=== PATIENT | male | born 1970 | race Caucasian/White ===

== ENCOUNTER → 2020-07-04 10:52 | Outpatient (BNVA) | payer OTHER, SELFPAY | PROVIDERS: PCP Internal Medicine; Referring Provider Internal Medicine; Visit Provider Orthopaedic Surgery | DX: M75.42 Impingement syndrome of left shoulder (principal); M19.012 Primary osteoarthritis, left shoulder; M75.41 Impingement syndrome of right shoulder; M19.011 Primary osteoarthritis, right shoulder | CPT/HCPCS: 20610; J1040 ==

== ENCOUNTER 2020-10-04 06:17 | Outpatient (REF) | payer OTHER, SELFPAY ==
[2020-10-04 08:11] LABS: Hematocrit 43.3 % (42-52); Mean Corpuscular HGB Conc 32.3 g/dl (31.0-36.0); Mean Corpuscular Hemoglobin 28.2 pg (27.0-33.0); Mean Corpuscular Volume 87.1 fL (80-98); Mean Platelet Volume 9.5 fL (9.4-12.4); Platelet Count 181 X10*3/uL (160-400); Red Blood Count 4.97 X10*6/uL (4.60-5.80); Red Cell Distribution Width 12.8 % (11.0-16.0); White Blood Count 5.1 X10*3/uL (4.8-10.8)
[2020-10-04 08:42] LABS: Estimated Average Glucose 146 mg/dL; Hemoglobin A1c % 6.7 %
[2020-10-04 08:55] LABS: Alanine Aminotransferase 56 U/L (0-40); Alkaline Phosphatase 59 U/L (39-117); Anion Gap 12 (12-20); Aspartate Amino Transferase 34 U/L (5-37); Bilirubin Direct 0.2 mg/dL (0.0-0.5); Bilirubin Total 0.4 mg/dL (0.0-1.0); Blood Urea Nitrogen 13 mg/dL (9-16); Calcium 8.8 mg/dL (8.4-10.2); Carbon Dioxide 29 mmol/L (22-29); Chloride 102 mmol/L (96-108); Cholesterol 121 mg/dL; Estimated Glomerular Filt Rate > 60; Glucose Random 104 mg/dL (60-115); HDL Cholesterol 30 mg/dL; LDL Cholesterol Calculated 61 mg/dl; Potassium 4.7 mmol/l (3.3-5.1); Sodium 138 mmol/L (135-145); Total Protein 7.1 g/dL (6.5-8.0); Triglycerides 151 mg/dL
== END 2020-10-04 06:18 | disposition home or self-care (01) ==
LOC: HO.LAB 06:17
PROVIDERS: Visit Provider Internal Medicine
DX: I10 Essential (primary) hypertension (principal); E11.9 Type 2 diabetes mellitus without complications
CPT/HCPCS: 36415; 80048; 80061; 80076; 83036; 85027

== ENCOUNTER → 2020-10-09 12:31 | Outpatient (BNVA) | payer OTHER, SELFPAY | PROVIDERS: PCP Internal Medicine; Visit Provider Orthopaedic Surgery | DX: Z13.89 Encounter for screening for other disorder (principal) | CPT/HCPCS: 20610; J1040 ==

== ENCOUNTER → 2020-10-23 08:11 | Outpatient (BNVA) | payer OTHER, SELFPAY | PROVIDERS: PCP Internal Medicine; Visit Provider Orthopaedic Surgery | DX: M75.42 Impingement syndrome of left shoulder (principal) | CPT/HCPCS: 20610; J1040 ==

== ENCOUNTER → 2021-02-25 08:07 | Outpatient (BNVA) | payer OTHER, SELFPAY | PROVIDERS: PCP Internal Medicine; Referring Provider Internal Medicine; Visit Provider Physician Assistant ==

== ENCOUNTER 2021-04-02 07:53 | Day surgery (SDC) | payer OTHER, SELFPAY ==
[2021-03-27 11:51] VITALS: BMI 39.0
--- NOTE | 2021-04-01 08:43 | P.CONAN_ITS ---
HPI - Anesthesia Eval Consult details Narrative: 50yo M for Colonoscopy REPLACED BY [facility] Active Problems Active Problems: All Active Problems (Updated 02/25/21 @ 08:53 by Marbella Tee PA-C) Screening for colon cancer (Acute) Knee sprain (Acute) Rotator cuff impingement syndrome of left shoulder (Acute) Rotator cuff impingement syndrome of right shoulder (Acute) Left shoulder pain (Acute) Borderline hyperlipidemia (Acute) Benign hypertension (Acute) Controlled diabetes mellitus type II without complication (Acute) Past Medical History Medical History Benign hypertension Borderline hyperlipidemia Class 2 severe obesity with body mass index (BMI) of 35 to 39.9 with serious comorbidity Controlled diabetes mellitus type II without complication Left shoulder pain Family History Family History Father Bleeding disorder Mother No problems noted. Maternal Aunt Cancer Paternal Uncle Diabetes Surgical History Surgical History History of nephrolithiasis Hx of arthroscopy of knee Social History Social History Household Members Other:: 1 son Alcohol intake: current Alcohol intake frequency: holidays/special occasions only Patient Tobacco Use Status: Never used Tobacco Use of substances other than those prescribed or required for medical reasons: No Are you DNR?: No Advance Directives: No Advance Directives Information Provided: Yes Current occupation: [email or web address] Allergies Allergy/AdvReac Type Severity Reaction Status Date / Time seafood Allergy Unknown Nausea Verified 02/25/21 08:18 Iodinated Contrast Media AdvReac Severe NAUSEA/VOMITING Verified 02/25/21 08:18 [IV CONTRAST] FROM IV DYE Home Medications Medication Instructions Recorded Confirmed Last Taken Type aspirin 81 mg tablet 81 mg PO DAILY 07/10/20 03/27/21 Unknown History lancets 28 gauge #100 ea 10/10/20 02/25/21 Unknown History fexofenadine 60 mg tablet 60 mg PO BID 02/25/21 03/27/21 Unknown History Exam Exam Date and Time: April 01, 2021 0843 Height,Weight and Vital Signs: Height 5 ft 8 in Weight 116.573 kg Assessment and Plan Assessment Anesthesia Assessment: Chart Reviewed
[2021-04-02 08:16] VITALS: BP 130/86; PULSE 63; RESP 16; TEMP 36.2; O2SAT 96; BMI 37.7
[2021-04-02 08:16] LABS: Glucose, Whole Blood 118 mg/dL (60-115)
[2021-04-02] MEDS: Lactated Ringers 1,000 ML 100 ML IVCONT (08:22)
--- NOTE | 2021-04-02 08:57 | P.HPSUR_ITS ---
Pre-Procedural Eval Section A Date of Service: 04/02/21 The patient is an INPATIENT: No The History & Physical has been completed within 30 days and I have reviewed it.: No Section B Chief Complaint: Screening Details of Present Illness: Colon cancer screening Relevant Family History (Specify if Yes): No Relevant Social History: None Present Medications: see Short Stay [facility] assessment Medical History: Significant History (Benign hypertension Borderline hyperlipidemia Class 2 severe obesity with body mass index (BMI) of 35 to 39.9 with serious comorbidity Controlled diabetes mellitus type II without complication Left shoulder pain) History of Previous Operations: Relevant previous surgery/procedure and date(s) (History of nephrolithiasis Hx of arthroscopy of knee) Allergies: Allergies Allergy/AdvReac Type Severity Reaction Status Date / Time seafood Allergy Unknown Nausea Verified 02/25/21 08:18 Iodinated Contrast Media AdvReac Severe NAUSEA/VOMITING Verified 02/25/21 08:18 [IV CONTRAST] FROM IV DYE Review of Systems Sugical H&P ROS: Negative: Constitution, Cardiovascular, Respiratory and Gastrointestinal Exam Surgical H&P Exam: Normal: Heart, Normal: Lungs, Normal: Extremities and Normal: Abdomen Plan Diagnosis/Plan: Unchanged I have reviewed the history and physical and performed a pertinent physical examination on my patient. No changes have occurred unless specified.
--- NOTE | 2021-04-02 09:29 | P.CONAN_ITS ---
[facility] Active Problems Active Problems: All Active Problems (Updated 02/25/21 @ 08:53 by Marbella ellison PA-C) Screening for colon cancer (Acute) Knee sprain (Acute) Rotator cuff impingement syndrome of left shoulder (Acute) Rotator cuff impingement syndrome of right shoulder (Acute) Left shoulder pain (Acute) Borderline hyperlipidemia (Acute) Benign hypertension (Acute) Controlled diabetes mellitus type II without complication (Acute) Past Medical History Medical History Benign hypertension Borderline hyperlipidemia Class 2 severe obesity with body mass index (BMI) of 35 to 39.9 with serious comorbidity Controlled diabetes mellitus type II without complication Left shoulder pain Family History Family History Father Bleeding disorder Mother No problems noted. Maternal Aunt Cancer Paternal Uncle Diabetes Surgical History Surgical History History of nephrolithiasis Hx of arthroscopy of knee Social History Social History Household Members Other:: 1 son Alcohol intake: current Alcohol intake frequency: holidays/special occasions only Patient Tobacco Use Status: Never used Tobacco Use of substances other than those prescribed or required for medical reasons: No Are you DNR?: No Advance Directives: No Advance Directives Information Provided: Yes Current occupation: [employer] Allergies Allergy/AdvReac Type Severity Reaction Status Date / Time seafood Allergy Unknown Nausea Verified 02/25/21 08:18 Iodinated Contrast Media AdvReac Severe NAUSEA/VOMITING Verified 02/25/21 08:18 [IV CONTRAST] FROM IV DYE Active Medications: Current Medications Generic Name Dose Route Start Last Admin Trade Name Freq PRN Reason Stop Dose Admin Lactated Ringer's 1,000 mls @ 100 mls/hr 04/02/21 08:15 04/02/21 08:22 Lr IVCONT 100 mls/hr .Q10H OLEKSANDR Administration Home Medications Medication Instructions Recorded Confirmed Last Taken Type aspirin 81 mg tablet 81 mg PO DAILY 07/10/20 03/27/21 Unknown History lancets 28 gauge #100 ea 10/10/20 02/25/21 Unknown History fexofenadine 60 mg tablet 60 mg PO BID 02/25/21 03/27/21 Unknown History Exam Exam Date and Time: April 02, 2021 0944 Height,Weight and Vital Signs: Height 5 ft 8 in Weight 112.491 kg Last Vital Signs Temp 97.2 F 04/02/21 08:16 Pulse 63 04/02/21 08:16 Resp 16 04/02/21 08:16 BP 130/86 04/02/21 08:16 Pulse Ox 96 04/02/21 08:16 Pertinent Lab Results Pertinent Lab Results: Laboratory Tests 04/02/21 08:13 POC Glucose 118 H Airway Mallampati Class: IV TM Dist: >3cm Neck ROM: Full Heart: RRR Lungs: CTA
[2021-04-02 10:02] VITALS: BP 103/68; PULSE 75; RESP 16; TEMP 36.6; O2SAT 97
[2021-04-02 10:17] VITALS: BP 104/67; PULSE 76; RESP 16; TEMP 36.6; O2SAT 95
--- NOTE | 2021-04-02 17:10 | P.OP_ITS ---
Operative Note Operative Note Date of Service: 04/02/21 Narrative: Pre-op diagnosis: Colon cancer screening Post-op diagnosis: other (Colon polyps, diverticulosis, hemorrhoids) Procedure: COLONOSCOPY TILL CECUM WITH SNARE POLYPECTOMY, SUBMUCOSAL INJECTION HEMOCLIP PLACEMENT Consent: Indications for the procedure and potential complications of bleeding, perforation, reaction to medications and missed diagnosis were discussed with the patient and informed consent was obtained. Instrument: Olympus PCF H 190 L variable stiffness pediatric colonoscope Monitoring: Vital signs and clinical assessment, intermittent blood pressure monitoring, continuous EKG monitoring, Pulse oximetry and Carbon Dioxide monitoring were done throughout the procedure. Colon withdrawl time was 35 minutes. Procedure: The patient was placed in the left lateral decubitis position and pre-procedure medications were administered. After a digital rectal examination of the ano-rectum, the video colonoscope was inserted into the rectum and advanced through the colon to the cecum. The colonoscope was slowly withdrawn in a retrograde panoramic fashion and the colon mucosa was carefully examined including a retroflexed view of the rectum. Findings and interventions are described below. Procedure Difficulty: Without difficulty Findings: Terminal Ileum: Not evaluated Cecum: A 2.5 to 3 cms flat polyp near the appendicular orifice. Polyp was raised with 7 cc of orise solution and removed with a hot snare. Polypectomy site was closed with a hemoclip. Ascending Colon: A 10 mm sessile polyp in the proximal ascending colon, removed with a hot snare Transverse Colon: Normal Descending Colon: Moderate diverticulosis Sigmoid Colon: A 7-8 mm sessile polyp removed with a hot snare. Moderate diverticulosis Rectum: Normal Ano-rectum: Moderate internal hemorrhoids Colon preparation: Good after copious irrigation Impression and Post Procedure Diagnosis: Colonoscopy Findings: Two medium sized and one large sized polyps removed Moderate diverticulosis seen in the left colon Moderate hemorrhoids on retroflexed exam. Plan: Await pathology results Patient has an appointment on 05/13/21 in the GI Clinic with PRASAD Murrell . Repeat Colonoscopy interval based on path results - in 1 years to check polypectomy site in the cecum if cecal polyp is adenomatous and 10 years if polyps are hyperplastic. Above findings were reviewed with the patient and colon polyps and diverticulosis handouts were given in the discharge area Surgeon: Nile Monson MD Anesthesia: MAC (Dr Mccauley) Was an [employer] Specialist used for this Procedure?: Yes [employer] Specialist: Evelin Obrien Estimated blood loss (mL): 0 Pathology: other ( A: CECAL POLYP O-RISE USED B: ASCENDING COLON POLYP C: SIGMOID POLYP) Condition: stable Disposition: PACU
== END 2021-04-02 11:00 | disposition home or self-care (01) ==
PROVIDERS: PCP Internal Medicine; Visit Provider Internal Medicine Gastroenterology
PROC: 0DJD8ZZ Inspection of Lower Intestinal Tract, Via Natural or Artificial Opening Endoscopic (ICD-10-PCS; CPT 45378; principal; 2021-04-02 09:10)
DX: Z12.11 Encounter for screening for malignant neoplasm of colon (principal); D12.0 Benign neoplasm of cecum; D12.2 Benign neoplasm of ascending colon; K63.5 Polyp of colon; K57.30 Diverticulosis of large intestine without perforation or abscess without bleeding; K64.8 Other hemorrhoids; I10 Essential (primary) hypertension; E11.9 Type 2 diabetes mellitus without complications; E66.01 Morbid (severe) obesity due to excess calories; Z68.39 Body mass index [BMI] 39.0-39.9, adult; Z79.84 Long term (current) use of oral hypoglycemic drugs; Z79.82 Long term (current) use of aspirin; Z79.899 Other long term (current) drug therapy; Z87.442 Personal history of urinary calculi; Z91.041 Radiographic dye allergy status; Z87.891 Personal history of nicotine dependence
CPT/HCPCS: 45385; 45381; 82947; 88305

== ENCOUNTER → 2021-05-13 13:12 | Outpatient (BNVA) | payer OTHER, SELFPAY | PROVIDERS: PCP Internal Medicine; Referring Provider Internal Medicine; Visit Provider Physician Assistant ==

== ENCOUNTER 2021-08-28 06:31 | Outpatient (REF) | payer OTHER, SELFPAY ==
[2021-08-28 07:14] LABS: Hematocrit 42.4 % (42.0-52.0); Mean Corpuscular Hemoglobin 28.3 pg (27.0-33.0); Mean Corpuscular Volume 85.8 fL (80.0-98.0); Mean Platelet Volume 9.4 fL (9.4-12.4); Platelet Count 197 X10*3/uL (160-400); Red Blood Count 4.94 X10*6/uL (4.60-5.80); Red Cell Distribution Width 12.2 % (11.0-16.0); White Blood Count 5.6 X10*3/uL (4.8-10.8)
[2021-08-28 07:21] LABS: Appearance Urine CLEAR; Color Urine YELLOW; Glucose Urine UA NEG (NEG); Leukocyte Esterase Urine NEG (NEG); Nitrite Urine NEG (NEG); Specific Gravity - Urine 1.025 (1.005-1.025); Urine Blood NEG (NEG); Urine Ketones NEG (NEG); Urine Protein NEG (NEG-TRACE)
[2021-08-28 07:31] LABS: Alanine Aminotransferase 48 U/L (0-40); Alkaline Phosphatase 66 U/L (39-117); Anion Gap 11 (12-20); Aspartate Amino Transferase 32 U/L (5-37); Bilirubin Direct 0.2 mg/dL (0.0-0.5); Bilirubin Total 0.5 mg/dL (0.0-1.0); Blood Urea Nitrogen 11 mg/dL (9-16); Calcium 9.5 mg/dL (8.4-10.2); Carbon Dioxide 29 mmol/L (22-29); Chloride 104 mmol/L (96-108); Cholesterol 122 mg/dL; Estimated Glomerular Filt Rate > 60; Glucose Random 116 mg/dL (60-115); HDL Cholesterol 28 mg/dL; LDL Cholesterol Calculated 59 mg/dl; Potassium 4.6 mmol/L (3.3-5.1); Sodium 139 mmol/L (135-145); Total Protein 7.2 g/dL (6.5-8.0); Triglycerides 179 mg/dL
[2021-08-28 07:54] LABS: Thyroid Stimulating Hormone 1.37 uIU/mL (0.32-4.0)
[2021-08-28 08:02] LABS: Creatinine Urine 137.41 mg/dL; Microalbum/Creatinine Ratio Ur 4.3 ug/mg cr
== END 2021-08-28 06:32 | disposition home or self-care (01) ==
LOC: HO.LAB 06:31
PROVIDERS: PCP Internal Medicine; Visit Provider Internal Medicine
DX: E11.9 Type 2 diabetes mellitus without complications (principal); I10 Essential (primary) hypertension
CPT/HCPCS: 36415; 80048; 80061; 80076; 81003; 82043; 84443; 85027

== ENCOUNTER 2021-12-31 16:16 | Outpatient (REF) | payer OTHER, SELFPAY ==
--- NOTE | ~2021-12-31 | US_ITS ---
EXAMINATION: US RETROPERITONEAL LIMITED (RENAL ONLY) CLINICAL INFORMATION: Calculus of kidney. COMPARISON: Renal ultrasound 12/13/2019 and 12/23/2018. X-ray abdomen KUB 06/24/2017. CT abdomen and pelvis 05/15/2017. TECHNIQUE: Real-time imaging of the kidneys. FINDINGS: RIGHT KIDNEY: 12.2 x 4.7 x 6.1 cm (SAG x AP x TRV). The kidney is normal in size, contour, and echogenicity. Renal cortical thickness is normal. No focal parenchymal lesions or hydronephrosis. There are multiple echogenic foci present consistent with calculi or vessel interface. The largest representing a renal calculus lies within the lower pole measuring approximately 9 x 3 mm in size. LEFT KIDNEY: 11.4 x 5.3 x 5.0 cm (SAG x AP x TRV). The kidney is normal in size, contour, and echogenicity. Renal cortical thickness is normal. No focal parenchymal lesions or hydronephrosis. Multiple echogenic foci are present either representing nonobstructing calculi or vessel interface. The largest in the upper to middle pole measures 6 x 4 mm in size. There are 4 echogenic foci within the lower pole likely representing nonobstructing calculi measuring 5 mm, 8 mm, 7 mm, and 9 mm in size. Incidentally noted is echogenic liver consistent with fatty infiltration. US/US renal BI IMPRESSION: Bilateral nephrolithiasis without evidence of obstructive uropathy. Fatty infiltration of the liver.
== END 2021-12-31 16:17 | disposition home or self-care (01) ==
LOC: HO.US 16:16
PROVIDERS: PCP Internal Medicine; Visit Provider Urology
DX: N20.0 Calculus of kidney (principal)
CPT/HCPCS: 76775

== ENCOUNTER → 2022-01-31 10:37 | Outpatient (BNVA) | payer OTHER, SELFPAY | PROVIDERS: PCP Internal Medicine | DX: N20.0 Calculus of kidney (principal) ==

== ENCOUNTER 2022-02-05 08:26 | Outpatient (REF) | payer OTHER, SELFPAY ==
[2022-02-05 08:56] LABS: Hematocrit 41.1 % (42.0-52.0); Mean Corpuscular HGB Conc 34.1 g/dl (31.0-36.0); Mean Corpuscular Hemoglobin 28.9 pg (27.0-33.0); Mean Corpuscular Volume 84.9 fL (80.0-98.0); Platelet Count 193 X10*3/uL (160-400); Red Blood Count 4.84 X10*6/uL (4.60-5.80); White Blood Count 5.9 X10*3/uL (4.8-10.8)
[2022-02-05 09:14] LABS: Alanine Aminotransferase 64 U/L (0-40); Alkaline Phosphatase 65 U/L (39-117); Anion Gap 11 (12-20); Aspartate Amino Transferase 37 U/L (5-37); Bilirubin Direct 0.2 mg/dL (0.0-0.5); Bilirubin Total 0.5 mg/dL (0.0-1.0); Blood Urea Nitrogen 12 mg/dL (9-16); Calcium 9.3 mg/dL (8.4-10.2); Carbon Dioxide 26 mmol/L (22-29); Chloride 103 mmol/L (96-108); Cholesterol 135 mg/dL; Estimated Glomerular Filt Rate > 60; Glucose Random 233 mg/dL (60-115); HDL Cholesterol 35 mg/dL; LDL Cholesterol Calculated 71 mg/dl; Potassium 4.2 mmol/L (3.3-5.1); Sodium 136 mmol/L (135-145); Total Protein 7.3 g/dL (6.5-8.0); Triglycerides 148 mg/dL
[2022-02-05 09:35] LABS: Thyroid Stimulating Hormone 1.35 uIU/mL (0.32-4.0)
[2022-02-05 09:56] LABS: Estimated Average Glucose 197 mg/dL; Hemoglobin A1c % 8.5 %
[2022-02-05 10:55] LABS: Appearance Urine CLEAR; Color Urine YELLOW; Glucose Urine UA >=1000 MG/DL (NEG); Leukocyte Esterase Urine NEG (NEG); Nitrite Urine NEG (NEG); Specific Gravity - Urine 1.025 (1.005-1.025); Urine Blood NEG (NEG); Urine Ketones 5 MG/DL (NEG); Urine Protein NEG (NEG-TRACE)
[2022-02-05 11:21] LABS: RBC Urine 0-2 /HPF (0); Squamous Epithelial Cell Urine TRACE /LPF; WBC Urine 0 /HPF (0-4)
[2022-02-05 11:36] LABS: Creatinine Urine 137.96 mg/dL; Microalbum/Creatinine Ratio Ur 6.5 ug/mg cr
== END 2022-02-05 08:27 | disposition home or self-care (01) ==
LOC: HO.LAB 08:26
PROVIDERS: PCP Internal Medicine; Visit Provider Internal Medicine
DX: E11.9 Type 2 diabetes mellitus without complications (principal)
CPT/HCPCS: 36415; 80048; 80061; 80076; 81001; 82043; 83036; 84443; 85027

== ENCOUNTER → 2022-02-06 13:12 | Outpatient (BNVA) | payer OTHER, SELFPAY | PROVIDERS: PCP Internal Medicine; Referring Provider Internal Medicine; Visit Provider Physician Assistant | DX: K63.5 Polyp of colon (principal) ==

== ENCOUNTER 2022-03-24 11:48 | Day surgery (SDC) | payer OTHER, SELFPAY ==
--- NOTE | 2022-03-21 12:14 | P.CONAN_ITS ---
Documented by User: Haven Henriquez NP 03/21/22 12:15 HPI - Anesthesia Eval Consult details Narrative: 51yo Mf or Cystoscopy, Ureteroroscopy, Retro, Laser PMFSH Active Problems Active Problems: All Active Problems (Updated 02/07/22 @ 14:22 by Marbelal Tee PA-C) Sessile colonic polyp (Acute) Hypercholesterolemia (Acute) Essential hypertension (Acute) Class 2 severe obesity with body mass index (BMI) of 35 to 39.9 with serious comorbidity (Acute) Rotator cuff impingement syndrome of right shoulder (Acute) Rotator cuff impingement syndrome of left shoulder (Acute) Annual physical exam (Acute) Renal stones (Acute) Controlled diabetes mellitus type II without complication (Acute) Past Medical History Medical History Arthrosis of both acromioclavicular joints Class 2 severe obesity with body mass index (BMI) of 35 to 39.9 with serious comorbidity Controlled diabetes mellitus type II without complication Diverticulosis large intestine w/o perforation or abscess w/o bleeding Essential hypertension Hypercholesterolemia Left shoulder pain Renal stones Rotator cuff impingement syndrome of left shoulder Rotator cuff impingement syndrome of right shoulder Rotator cuff impingement syndrome of right shoulder Sessile colonic polyp Family History Family History Father Bleeding disorder Mother No problems noted. Maternal Aunt Cancer Paternal Uncle Diabetes Mother No problems noted. Father No problems noted. Surgical History Surgical History History of arthroscopy of both knees History of nephrolithiasis Hx of arthroscopy of knee Hx of colonoscopy Social History Social History Household Members Other:: 1 son Housing: House Alcohol intake: current Alcohol intake frequency: does not drink Patient Tobacco Use Status: Never used Tobacco e-Cigarette/Vaping Use: Never Used Second Hand Smoke Exposure: No Use of substances other than those prescribed or required for medical reasons: No Are you DNR?: No Advance Directives: No Advance Directives Information Provided: Yes Advance Directives on File: No service: No Current occupational status: employed 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 Cognitive needs: No Hearing needs: No Vision needs: Yes (Glasses) Meds Allergies Allergy/AdvReac Type Severity Reaction Status Date / Time seafood Allergy Unknown Nausea Verified 03/18/22 13:02 Iodinated Contrast Media AdvReac Severe NAUSEA/VOMITING Verified 03/18/22 13:02 [IV CONTRAST] FROM IV DYE seasonal Allergy Unknown unknown Uncoded 02/05/22 08:01 Home Medications Medication Instructions Recorded Confirmed Last Taken Type aspirin 81 mg tablet 81 mg PO DAILY 07/10/20 05/13/21 Unknown History lancets 28 gauge #100 ea 10/10/20 05/13/21 Unknown History fexofenadine 60 mg tablet (Thuy 60 mg PO BID 02/25/21 05/13/21 Unknown History Allergy) pyridoxine (vitamin B6) 50 mg 50 mg PO DAILY 03/18/22 Unknown History tablet Exam Exam Date and Time: March 21, 2022 1214 Pertinent Lab Results Pertinent Lab Results: Laboratory Tests 02/05/22 02/05/22 08:43 08:43 WBC 5.9 Hgb 14.0 Hct 41.1 L Plt Count 193 Sodium 136 Potassium 4.2 Chloride 103 Carbon Dioxide 26 BUN 12 Creatinine 1.16 Assessment and Plan Assessment Anesthesia Assessment: Chart Reviewed Documented by User: Tea Sanchez MD 03/24/22 12:36 [facility] Past Medical History Medical History Arthrosis of both acromioclavicular joints Class 2 severe obesity with body mass index (BMI) of 35 to 39.9 with serious comorbidity Controlled diabetes mellitus type II without complication Diverticulosis large intestine w/o perforation or abscess w/o bleeding Essential hypertension Hypercholesterolemia Left shoulder pain Renal stones Rotator cuff impingement syndrome of left shoulder Rotator cuff impingement syndrome of right shoulder Rotator cuff impingement syndrome of right shoulder Sessile colonic polyp Functional capacity: independent ambulation Family History Family History Father Bleeding disorder Mother No problems noted. Maternal Aunt Cancer Paternal Uncle Diabetes Mother No problems noted. Father No problems noted. Family history of problems with anesthesia: No Surgical History Surgical History History of arthroscopy of both knees History of nephrolithiasis Hx of arthroscopy of knee Hx of colonoscopy History of Problems with Anesthesia: No Social History Social History Household Members Other:: 1 son Housing: House Alcohol intake: current Alcohol intake frequency: does not drink Patient Tobacco Use Status: Never used Tobacco e-Cigarette/Vaping Use: Never Used Second Hand Smoke Exposure: No Use of substances other than those prescribed or required for medical reasons: No Are you DNR?: No Advance Directives: No Advance Directives Information Provided: Yes Advance Directives on File: No service: No Current occupational status: employed 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 Cognitive needs: No Hearing needs: No Vision needs: Yes (Glasses) Meds Allergies Allergy/AdvReac Type Severity Reaction Status Date / Time seafood Allergy Unknown Nausea Verified 03/18/22 13:02 Iodinated Contrast Media AdvReac Severe NAUSEA/VOMITING Verified 03/18/22 13:02 [IV CONTRAST] FROM IV DYE seasonal Allergy Unknown unknown Uncoded 02/05/22 08:01 Home Medications Medication Instructions Recorded Confirmed Last Taken Type aspirin 81 mg tablet 81 mg PO DAILY 07/10/20 05/13/21 Unknown History lancets 28 gauge #100 ea 10/10/20 05/13/21 Unknown History fexofenadine 60 mg tablet (Thuy 60 mg PO BID 02/25/21 05/13/21 Unknown History Allergy) pyridoxine (vitamin B6) 50 mg 50 mg PO DAILY 03/18/22 Unknown History tablet Exam Airway Mallampati Class: IV TM Dist: >3cm Neck ROM: Full Heart: RRR Lungs: CTA Assessment and Plan Final Anesthetic Review Family History of Problems with Anesthesia: No History of Problems with Anesthesia: No Final Preanesthetic Review: No Changes in Pt Med Stat, Meds/Allgs Chart Reviewed, Consent Obtained/Reviewed and Anes Risks/Benef Reviewed Patient Risk: Intermediate Procedure Risk: Low Anesthetic Plan Anesthetic Plan: GA Disposition: Standard PACU
--- NOTE | ~2022-03-24 | FL_ITS ---
EXAMINATION: XR FLUOROSCOPY WITH IMAGES CLINICAL INFORMATION: Left-sided cystoscopy. COMPARISON: None. TECHNIQUE: Fluoroscopy performed by Dr. Desmond Harkins. Fluoroscopy time: 15.77) Dose: 9.57 mGy Images: 1 FINDINGS: There is a single image obtained overlying the left kidney with proximal end of stent in the left kidney pelvis. The distal end is not in the [id number]. FL/FL guidance in OR IMPRESSION: Fluoroscopy was provided to referring DrDuy during retrograde ureterogram and cystogram.
[2022-03-24 12:05] VITALS: BMI 38.2
[2022-03-24 12:11] VITALS: BP 134/80; PULSE 68; RESP 16; TEMP 36.3; O2SAT 95
[2022-03-24] MEDS: Acetaminophen 325 MG TABLET 650 MG PO (12:12)
[2022-03-24 12:18] LABS: Glucose, Whole Blood 132 mg/dL (60-115)
--- NOTE | 2022-03-24 12:24 | MHC.SHP ---
Pre-Procedural Eval Section A Date of Service: 03/24/22 The patient is an INPATIENT: Yes Changes since office visit: No Cold of Flu in the past 2 weeks, No New Medical Problems, No Changes in Medication and No Patient answered all questions The History & Physical has been completed within 30 days and I have reviewed it.: Yes Section B Chief Complaint: kidney stone Details of Present Illness: left side renal stone Relevant Family History (Specify if Yes): No Relevant Social History: Tobacco Use Present Medications: see Short Stay Collaborative assessment Medical History: Significant History History of Previous Operations: Relevant previous surgery/procedure and date(s) Allergies: Allergies Allergy/AdvReac Type Severity Reaction Status Date / Time seafood Allergy Unknown Nausea Verified 03/18/22 13:02 Iodinated Contrast Media AdvReac Severe NAUSEA/VOMITING Verified 03/18/22 13:02 [IV CONTRAST] FROM IV DYE seasonal Allergy Unknown unknown Uncoded 02/05/22 08:01 Review of Systems Sugical H&P ROS: Negative: Constitution, Cardiovascular, Respiratory, Neurological, Psychiatric, Hem-Onc, Allergic/Immunologic, Gastrointestinal, Genitourinary, Musculoskeletal, Integumentary, Endocrine and Eyes/Ears/Nose/Throat Exam Surgical H&P Exam: Normal: HEENT, Normal: Heart, Normal: Lungs, Normal: Extremities, Normal: Abdomen, Normal: Skin and Normal: Neurological Plan Diagnosis/Plan: Unchanged ( cystoscopy, left retrograde, left ureteroscopy with laser lithotripsy and stent placement) I have reviewed the history and physical and performed a pertinent physical examination on my patient. No changes have occurred unless specified.
--- NOTE | 2022-03-24 13:19 | P.OP_ITS ---
Operative Note Operative Note Date of Service: 03/24/22 Narrative: PreOperative Diagnosis: left-sided renal stones Post Operative Diagnosis: left submucosal renal calcifications Procedure: - cystoscopy, left retrograde - left dilatation of ureteric orifice under fluoroscopy - left ureteroscopy - left stent placement Surgeon: Dr Torin Logan Anesthesia: General Indications for procedure: recurrent stones on imaging. Multiple prior ESWL. Discomfort. Procedure: After informed consent was verified patient was brought to the operating placed in supine position. Anesthesia was administered per protocol. Patient was placed in modified dorsal lithotomy position and prepped and draped in a sterile fashion. Safety pause time-out and side of surgery confirmed. Antibiotics confirmed. 22 Belarusian cystoscope was inserted per urethra. Bladder was normal in its entirety. Both ureteric orifices were in normal position. The Left ureteric orifice was cannulated and a retrograde examination was performed. no clear filling defects seen . A Sensor guidewire was placed up to the level of the renal pelvis under fluoroscopy. The rigid cystoscope was removed and the inner cannula of ureteric access sheath was used under fluoroscopy to dilate the ureteric orifice. The ureteric access sheath was placed and the inner cannula with access wire removed. The digital flexible ureteral scope was placed. the flexible scope was placed into the renal pelvis. The renal pelvis was examined its entirety. All cases examined. There were multiple calices with submucosal stones. Two small stones floating that were knocked from the calyces. Due to the amount of submucosal stone and very little of it was penetrating through service decision was made not to proceed with laser all of the submucosal stones. He will need follow-up 24 hour urine and medical management. A 7 Belarusian by Twenty-six cm double-J stent was placed into the renal pelvis and bladder under a combination of fluoroscopy and direct visualization. The bladder was emptied. The patient tolerated the procedure well and was extu bated in the operating room, and transferred in stable condition to the recovery area. Pathology: none Drains: 7 Belarusian by 26 cm double-J stent
[2022-03-24 13:30] VITALS: BP 126/79; PULSE 82; RESP 16; TEMP 36.7; O2SAT 99
[2022-03-24 13:35] VITALS: BP 137/89; PULSE 79; RESP 16; O2SAT 95
[2022-03-24 13:40] VITALS: BP 132/86; PULSE 78; RESP 16; O2SAT 95
[2022-03-24 13:45] VITALS: BP 136/91; PULSE 64; RESP 16; O2SAT 95
[2022-03-24] MEDS: Phenazopyridine HCL 100 MG TABLET PO (13:56)
--- NOTE | 2022-03-24 13:59 | HO.POSTANES ---
Post Anesthesia Evaluation Post Anesthesia Evaluation Vital Signs: Vital Signs Temp Pulse Resp BP Pulse Ox O2 Del Method O2 Flow Rate 03/24/22 13:35 79 16 137/89 95 Room Air 03/24/22 13:30 98.1 F 82 16 126/79 99 Simple Mask 2 03/24/22 12:11 97.3 F 68 16 134/80 95 Room Air Anesthesia: General LMA Mental Status: Awake Pain Control: Satisfactory Nausea/Vomiting: None Hydration: Adequate
[2022-03-24 14:00] VITALS: BP 136/88; PULSE 68; RESP 16; O2SAT 96
== END 2022-03-24 14:41 | disposition home or self-care (01) ==
PROVIDERS: PCP Internal Medicine; Visit Provider Urology
PROC: (CPT 52332; principal; 2022-03-24 13:20)
DX: N20.0 Calculus of kidney (principal); N28.89 Other specified disorders of kidney and ureter; Z87.442 Personal history of urinary calculi; E11.9 Type 2 diabetes mellitus without complications; I10 Essential (primary) hypertension; E78.00 Pure hypercholesterolemia, unspecified; K57.30 Diverticulosis of large intestine without perforation or abscess without bleeding; E66.01 Morbid (severe) obesity due to excess calories; Z87.19 Personal history of other diseases of the digestive system; Z91.041 Radiographic dye allergy status
CPT/HCPCS: 52332; 82947; C1758; C1769; C1894; C2617; J1100; J1885; J1956; J2250; J2405; J3010; Q9967

== ENCOUNTER → 2022-04-10 12:46 | Outpatient (BNVA) | payer OTHER, SELFPAY | PROVIDERS: PCP Internal Medicine; Visit Provider Urology | DX: R82.994 Hypercalciuria (principal); N20.0 Calculus of kidney | CPT/HCPCS: 52310 ==

== ENCOUNTER 2022-05-29 13:58 | Outpatient (REF) | payer OTHER, SELFPAY ==
--- NOTE | ~2022-05-29 | US_ITS ---
EXAMINATION: US RETROPERITONEAL LIMITED (RENAL ONLY) CLINICAL INFORMATION: Hypercalciuria. COMPARISON: Renal ultrasound 12/31/2021 and 12/13/2019. X-ray KUB 06/24/2017 and 06/17/2017. CT abdomen and pelvis 05/15/2017. TECHNIQUE: Real-time imaging of the kidneys. FINDINGS: RIGHT KIDNEY: 13.2 x 5.6 x 5.0 cm (SAG x AP x TRV). The kidney is normal in size, contour, and echogenicity. Renal cortical thickness is normal. No focal parenchymal lesions or hydronephrosis. Within the right renal lower pole is a 5 mm nonobstructive calculus. LEFT KIDNEY: 12.6 x 6.0 x 5.0 cm (SAG x AP x TRV). The kidney is normal in size, contour, and echogenicity. Renal cortical thickness is normal. No focal parenchymal lesions or hydronephrosis. Within the left renal lower pole is a 7 mm nonobstructive calculus. US/US renal BI IMPRESSION: Bilateral nephrolithiasis measuring up 7 mm without hydronephrosis.
== END 2022-05-29 13:59 | disposition home or self-care (01) ==
LOC: HO.US 13:58
PROVIDERS: Visit Provider Urology
DX: R82.994 Hypercalciuria (principal)
CPT/HCPCS: 76775

== ENCOUNTER 2022-06-16 08:53 | Day surgery (SDC) | payer OTHER, SELFPAY ==
[2022-06-11 09:49] VITALS: BMI 38.6
--- NOTE | 2022-06-13 12:41 | HO.ANESPROP2 ---
Documented by User: Haven Henriquez NP 06/13/22 12:42 HPI - Anesthesia Eval Consult details Narrative: 51yo M for Colonoscopy s/p cysto etc 03/2022 with GA-LMA 5 PMFSH Active Problems Active Problems: All Active Problems (Updated 06/11/22 @ 09:44 by Alondra Maher RN) Annual physical exam (Acute) Hypercalciuria (Acute) Sessile colonic polyp (Acute) Hypercholesterolemia (Acute) Essential hypertension (Acute) Class 2 severe obesity with body mass index (BMI) of 35 to 39.9 with serious comorbidity (Acute) Rotator cuff impingement syndrome of right shoulder (Acute) Rotator cuff impingement syndrome of left shoulder (Acute) Renal stones (Acute) Controlled diabetes mellitus type II without complication (Acute) Past Medical History Medical History (Updated 06/11/22 @ 09:44 by Alondra Maher RN) Arthrosis of both acromioclavicular joints Class 2 severe obesity with body mass index (BMI) of 35 to 39.9 with serious comorbidity Controlled diabetes mellitus type II without complication Diverticulosis large intestine w/o perforation or abscess w/o bleeding Essential hypertension Hypercholesterolemia Left shoulder pain Renal stones Rotator cuff impingement syndrome of left shoulder Rotator cuff impingement syndrome of right shoulder Sessile colonic polyp Family History Family History Father Bleeding disorder Mother No problems noted. Maternal Aunt Cancer Paternal Uncle Diabetes Mother No problems noted. Father No problems noted. Family history of problems with anesthesia: No Surgical History Surgical History (Updated 06/11/22 @ 09:48 by Alondra Maher RN) Hx of arthroscopy of knee Hx of colonoscopy Hx of cystoscopy Hx of lithotripsy History of Problems with Anesthesia: No Social History Social History Household Members Other:: 1 son Housing: House Alcohol intake: current Alcohol intake frequency: does not drink Patient Tobacco Use Status: Current someday Tobacco user Tobacco use type: Cigar e-Cigarette/Vaping Use: Never Used Second Hand Smoke Exposure: No Use of substances other than those prescribed or required for medical reasons: No Are you DNR?: No Advance Directives: No Advance Directives Information Provided: Yes service: No Current occupational status: employed 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 Cognitive needs: No Hearing needs: No Vision needs: Yes (Glasses) Meds Allergies Allergy/AdvReac Type Severity Reaction Status Date / Time seafood Allergy Intermediate Nausea Verified 06/16/22 09:05 Iodinated Contrast Media AdvReac Severe NAUSEA/VOMITING Verified 06/16/22 09:05 [IV CONTRAST] FROM IV DYE seasonal Allergy Unknown unknown Uncoded 02/05/22 08:01 Home Medications Medication Instructions Recorded Confirmed Last Taken Type aspirin 81 mg tablet 81 mg PO DAILY 07/10/20 06/11/22 Unknown History lancets 28 gauge #100 ea 10/10/20 05/13/21 Unknown History fexofenadine 60 mg tablet (Thuy 60 mg PO BID 02/25/21 06/11/22 Unknown History Allergy) pyridoxine (vitamin B6) 50 mg 50 mg PO DAILY 03/18/22 Unknown History tablet Exam Exam Date and Time: June 13, 2022 1241 Height,Weight and Vital Signs: Height 5 ft 8 in Weight 115.212 kg Pertinent Lab Results Pertinent Lab Results: Laboratory Tests 02/05/22 02/05/22 08:43 08:43 WBC 5.9 Hgb 14.0 Hct 41.1 L Plt Count 193 Sodium 136 Potassium 4.2 Chloride 103 Carbon Dioxide 26 BUN 12 Creatinine 1.16 Assessment and Plan Assessment Anesthesia Assessment: Chart Reviewed Final Anesthetic Review Family History of Problems with Anesthesia: No History of Problems with Anesthesia: No Documented by User: Sola Fernandez MD 06/16/22 09:22 REPLACED BY [facility] Past Medical History Medical History (Updated 06/11/22 @ 09:44 by Alondra Maher RN) Arthrosis of both acromioclavicular joints Class 2 severe obesity with body mass index (BMI) of 35 to 39.9 with serious comorbidity Controlled diabetes mellitus type II without complication Diverticulosis large intestine w/o perforation or abscess w/o bleeding Essential hypertension Hypercholesterolemia Left shoulder pain Renal stones Rotator cuff impingement syndrome of left shoulder Rotator cuff impingement syndrome of right shoulder Sessile colonic polyp Family History Family History Father Bleeding disorder Mother No problems noted. Maternal Aunt Cancer Paternal Uncle Diabetes Mother No problems noted. Father No problems noted. Surgical History Surgical History (Updated 06/11/22 @ 09:48 by Alondra Maher RN) Hx of arthroscopy of knee Hx of colonoscopy Hx of cystoscopy Hx of lithotripsy Social History Social History Household Members Other:: 1 son Housing: House Alcohol intake: current Alcohol intake frequency: does not drink Patient Tobacco Use Status: Current someday Tobacco user Tobacco use type: Cigar e-Cigarette/Vaping Use: Never Used Second Hand Smoke Exposure: No Use of substances other than those prescribed or required for medical reasons: No Are you DNR?: No Advance Directives: No Advance Directives Information Provided: Yes service: No Current occupational status: employed 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 Cognitive needs: No Hearing needs: No Vision needs: Yes (Glasses) Meds Allergies Allergy/AdvReac Type Severity Reaction Status Date / Time seafood Allergy Intermediate Nausea Verified 06/16/22 09:05 Iodinated Contrast Media AdvReac Severe NAUSEA/VOMITING Verified 06/16/22 09:05 [IV CONTRAST] FROM IV DYE seasonal Allergy Unknown unknown Uncoded 02/05/22 08:01 Home Medications Medication Instructions Recorded Confirmed Last Taken Type aspirin 81 mg tablet 81 mg PO DAILY 07/10/20 06/11/22 Unknown History lancets 28 gauge #100 ea 10/10/20 05/13/21 Unknown History fexofenadine 60 mg tablet (Thuy 60 mg PO BID 02/25/21 06/11/22 Unknown History Allergy) pyridoxine (vitamin B6) 50 mg 50 mg PO DAILY 03/18/22 Unknown History tablet Exam Airway Mallampati Class: II TM Dist: >3cm Neck ROM: Full Heart: rrr Lungs: cta Assessment and Plan Assessment Anesthesia Assessment: Anesthesia Plan Discussed Final Anesthetic Review NPO: Yes ASA Class: III Final Preanesthetic Review: No Changes in Pt Med Stat, Meds/Allgs Chart Reviewed and Consent Obtained/Reviewed Patient Risk: Intermediate Procedure Risk: Intermediate Anesthetic Plan Anesthetic Plan: MAC: Disposition: Standard PACU
--- NOTE | 2022-06-16 09:04 | MHC.SHP ---
Pre-Procedural Eval Section A Date of Service: 06/16/22 The patient is an INPATIENT: No The History & Physical has been completed within 30 days and I have reviewed it.: No Section B Chief Complaint: Colon cancer screening, history of colon polyps Relevant Family History (Specify if Yes): No Relevant Social History: None Present Medications: see Short Stay Collaborative assessment Medical History: Significant History (Arthrosis of both acromioclavicular joints Class 2 severe obesity with body mass index (BMI) of 35 to 39.9 with serious comorbidity Controlled diabetes mellitus type II without complication Diverticulosis large intestine w/o perforation or abscess w/o bleeding Essential hypertension Hypercholesterol) History of Previous Operations: Relevant previous surgery/procedure and date(s) (History of arthroscopy of both knees History of nephrolithiasis Hx of arthroscopy of knee Hx of colonoscopy) Allergies: Allergies Allergy/AdvReac Type Severity Reaction Status Date / Time seafood Allergy Intermediate Nausea Verified 06/11/22 09:45 Iodinated Contrast Media AdvReac Severe NAUSEA/VOMITING Verified 04/10/22 13:08 [IV CONTRAST] FROM IV DYE seasonal Allergy Unknown unknown Uncoded 02/05/22 08:01 Review of Systems Sugical H&P ROS: Negative: Constitution, Cardiovascular, Respiratory and Gastrointestinal Exam Surgical H&P Exam: Normal: Heart, Normal: Lungs, Normal: Extremities and Normal: Abdomen Plan Diagnosis/Plan: Unchanged I have reviewed the history and physical and performed a pertinent physical examination on my patient. No changes have occurred unless specified.
--- NOTE | 2022-06-16 09:06 | P.BOP_ITS ---
Brief Operative Note Date of Service: 06/16/22 Pre-op diagnosis: Colon cancer screening, history of colon polyps Post-op diagnosis: other (Colon polyps, diverticulosis, hemorrhoids) Procedure: COLONOSCOPY TILL CECUM WITH BIOPSIES AND SNARE POLYPECTOMY Consent: Indications for the procedure and potential complications of bleeding, perforation, reaction to medications and missed diagnosis were discussed with the patient and informed consent was obtained. Instrument: Olympus PCF H 190 L variable stiffness pediatric colonoscope Monitoring: Vital signs and clinical assessment, intermittent blood pressure monitoring, continuous EKG monitoring, Pulse oximetry and Carbon Dioxide monitoring were done throughout the procedure. Colon withdrawl time was 25 minutes. Procedure: The patient was placed in the left lateral decubitis position and pre-procedure medications were administered. After a digital rectal examination of the ano-rectum, the video colonoscope was inserted into the rectum and advanced through the colon to the cecum. The colonoscope was slowly withdrawn in a retrograde panoramic fashion and the colon mucosa was carefully examined including a retroflexed view of the rectum. Findings and interventions are described below. Procedure Difficulty: Without difficulty Findings: Terminal Ileum: Not evaluated Cecum: Two 3-4 mm sessile polyps removed with a cold bx and a cold snare (one polyp located at the site of past polypectomy). Random biopsies were obtained around the site of past polypectomy. Ascending Colon: Normal Transverse Colon: Normal Descending Colon: Moderate diverticulosis Sigmoid Colon: Moderate diverticulosis Rectum: Normal Ano-rectum: Moderate internal hemorrhoids Colon preparation: Good after copious irrigation Impression and Post Procedure Diagnosis: Colonoscopy Findings: Two small polyps removed Random biopsies were obtained around the site of past polypectomy in the cecum Moderate diverticulosis seen in the left colon Moderate hemorrhoids on retroflexed exam. Plan: Await pathology results Patient has an appointment on 06/30/22 in the GI Clinic with PRASAD Murrell. Repeat Colonoscopy interval based on path results - in 3 years if polyps are adenomatous. Above findings were reviewed with the patient and colon polyps and diverticulosis handouts were given in the discharge area Surgeon: Nile Monson MD Anesthesia: MAC Was an Industrial Electrical Engineer used for this Procedure?: Yes Industrial Electrical Engineer: Allen Arzate Estimated blood loss (mL): 0 Pathology: other (A: CECAL POLYP B: CECAL BXS AT POLYPECTOMY SITE R/O ADENOMA) Condition: stable Disposition: PACU
[2022-06-16 09:11] VITALS: BP 140/91; PULSE 68; RESP 16; TEMP 36.6; O2SAT 97
[2022-06-16] MEDS: Lactated Ringers 1,000 ML 100 ML IVCONT (09:23)
[2022-06-16 09:28] LABS: Glucose, Whole Blood 162 mg/dL (60-115)
[2022-06-16 10:03] VITALS: BP 123/82; PULSE 73; RESP 16; TEMP 36.7; O2SAT 96
--- NOTE | 2022-06-16 10:08 | W.PM.OPN ---
Operative Note Operative Note Date of Service: 06/16/22 Narrative: Pre-op diagnosis: Colon cancer screening, history of colon polyps Post-op diagnosis:?other (Colon polyps, diverticulosis, hemorrhoids) Procedure: COLONOSCOPY TILL CECUM WITH BIOPSIES AND SNARE POLYPECTOMY Consent: Indications for the procedure and potential complications of bleeding, perforation, reaction to medications and missed diagnosis were discussed with the patient and informed consent was obtained. Instrument: Olympus PCF H 190 L variable stiffness pediatric colonoscope Monitoring: Vital signs and clinical assessment, intermittent blood pressure monitoring, continuous EKG monitoring, Pulse oximetry and Carbon Dioxide monitoring were done throughout the procedure. Colon withdrawl time was 25 minutes. Procedure: The patient was placed in the left lateral decubitis position and pre-procedure medications were administered. After a digital rectal examination of the ano-rectum, the video colonoscope was inserted into the rectum and advanced through the colon to the cecum. The colonoscope was slowly withdrawn in a retrograde panoramic fashion and the colon mucosa was carefully examined including a retroflexed view of the rectum. Findings and interventions are described below. Procedure Difficulty: Without difficulty Findings: Terminal Ileum: Not evaluated Cecum:? Two 3-4 mm sessile polyps removed with a cold bx and a cold snare (one polyp located at the site of past polypectomy).? Random biopsies were obtained around the site of past polypectomy. Ascending Colon:? Normal Transverse Colon:? Normal Descending Colon:? Moderate diverticulosis Sigmoid Colon:? Moderate diverticulosis Rectum:? Normal Ano-rectum:? Moderate internal hemorrhoids Colon preparation:? Good after copious irrigation Impression and Post Procedure Diagnosis: Colonoscopy Findings: Two small polyps removed Random biopsies were obtained around the site of past polypectomy in the cecum Moderate diverticulosis seen in the left colon Moderate hemorrhoids on retroflexed exam. Plan: Await pathology results Patient has an appointment on 06/30/22 in the GI Clinic with PRASAD Murrell. Repeat Colonoscopy interval based on path results - in 3 years if polyps are adenomatous. Above findings were reviewed with the patient and colon polyps and diverticulosis handouts were given in the discharge area Surgeon: Nile Monson MD Anesthesia:?MAC Was an Meat Processor used for this Procedure?:?Yes Meat Processor:?Allen Arzate Estimated blood loss (mL):?0 Pathology:?other (A: CECAL POLYP? B: CECAL BXS AT POLYPECTOMY SITE R/O ADENOMA) Condition:?stable Disposition:?PACU
[2022-06-16 10:18] VITALS: BP 131/87; PULSE 74; RESP 16; TEMP 36.7; O2SAT 96
== END 2022-06-16 10:42 | disposition home or self-care (01) ==
PROVIDERS: Visit Provider Internal Medicine Gastroenterology
PROC: 0DJD8ZZ Inspection of Lower Intestinal Tract, Via Natural or Artificial Opening Endoscopic (ICD-10-PCS; CPT 45378; principal; 2022-06-16 10:10)
DX: Z12.11 Encounter for screening for malignant neoplasm of colon (principal); Z86.010 Personal history of colon polyps; K63.5 Polyp of colon; K57.30 Diverticulosis of large intestine without perforation or abscess without bleeding; K64.8 Other hemorrhoids; E66.01 Morbid (severe) obesity due to excess calories; Z68.38 Body mass index [BMI] 38.0-38.9, adult; E11.9 Type 2 diabetes mellitus without complications; E78.00 Pure hypercholesterolemia, unspecified; M19.012 Primary osteoarthritis, left shoulder; M19.011 Primary osteoarthritis, right shoulder; I10 Essential (primary) hypertension; Z79.82 Long term (current) use of aspirin; Z79.84 Long term (current) use of oral hypoglycemic drugs; Z79.899 Other long term (current) drug therapy; Z91.041 Radiographic dye allergy status
CPT/HCPCS: 45385; 45380; 82947; 88305

== ENCOUNTER 2022-09-27 07:11 | Outpatient (REF) | payer OTHER, SELFPAY ==
[2022-09-27 07:54] LABS: Hematocrit 42.2 % (42.0-52.0); Hemoglobin 13.8 g/dl (14.0-18.0); Mean Corpuscular HGB Conc 32.7 g/dl (31.0-36.0); Mean Corpuscular Hemoglobin 28.2 pg (27.0-33.0); Mean Corpuscular Volume 86.1 fL (80.0-98.0); Platelet Count 218 X10*3/uL (160-400); Red Cell Distribution Width 12.3 % (11.0-16.0); White Blood Count 6.7 X10*3/uL (4.8-10.8)
[2022-09-27 08:35] LABS: Alanine Aminotransferase 83 U/L (0-40); Alkaline Phosphatase 56 U/L (39-117); Anion Gap 11 (12-20); Aspartate Amino Transferase 48 U/L (5-37); Bilirubin Direct 0.2 mg/dL (0.0-0.5); Bilirubin Total 0.6 mg/dL (0.0-1.0); Blood Urea Nitrogen 12 mg/dL (9-16); Calcium 9.6 mg/dL (8.4-10.2); Carbon Dioxide 31 mmol/L (22-29); Chloride 101 mmol/L (96-108); Cholesterol 123 mg/dL; Estimated Glomerular Filt Rate > 60; Glucose Random 114 mg/dL (60-115); HDL Cholesterol 32 mg/dL; LDL Cholesterol Calculated 70 mg/dl; Potassium 3.9 mmol/L (3.3-5.1); Sodium 139 mmol/L (135-145); Total Protein 6.9 g/dL (6.5-8.0); Triglycerides 107 mg/dL
[2022-09-27 08:51] LABS: Thyroid Stimulating Hormone 1.09 uIU/mL (0.32-4.0)
== END 2022-09-27 07:12 | disposition home or self-care (01) ==
LOC: HO.LAB 07:11
PROVIDERS: PCP Internal Medicine; Visit Provider Internal Medicine
DX: E78.00 Pure hypercholesterolemia, unspecified (principal); I10 Essential (primary) hypertension
CPT/HCPCS: 36415; 80048; 80061; 80076; 84443; 85027

== ENCOUNTER → 2022-12-04 13:30 | Outpatient (BNVA) | payer OTHER, SELFPAY | PROVIDERS: PCP Internal Medicine; Visit Provider Orthopaedic Surgery | DX: S43.431A Superior glenoid labrum lesion of right shoulder, initial encounter (principal) | CPT/HCPCS: 20610; J1100 ==

== ENCOUNTER → 2023-01-15 13:28 | Outpatient (BNVA) | payer OTHER, SELFPAY | PROVIDERS: PCP Internal Medicine; Visit Provider Orthopaedic Surgery ==

== ENCOUNTER 2023-02-04 14:54 | Outpatient (REF) | payer OTHER, SELFPAY ==
--- NOTE | ~2023-02-04 | US_ITS ---
EXAMINATION: US RETROPERITONEAL LIMITED (RENAL ONLY) CLINICAL INFORMATION: Calculus of kidney. COMPARISON: Ultrasound retroperitoneal limited (renal only) 05/29/2022 and 12/31/2021. X-ray abdomen KUB 06/24/2017 and 06/17/2017. CT abdomen and pelvis without contrast 05/15/2017. TECHNIQUE: Real-time imaging of the kidneys. FINDINGS: RIGHT KIDNEY: 13.3 x 6.2 x 6.0 cm (SAG x AP x TRV). The kidney is normal in size, contour, and echogenicity. Renal cortical thickness is normal. A lower pole 7 mm nonobstructing calculus is present. No Focal parenchymal lesions or hydronephrosis. LEFT KIDNEY: 11.8 x 6.3 x 5.1 cm (SAG x AP x TRV). The kidney is normal in size, contour, and echogenicity. Renal cortical thickness is normal. A lower pole 9 mm nonobstructing calculus is present present. Focal parenchymal lesions or hydronephrosis. Incidental note made of hepatic steatosis with an echogenic liver. US/US renal BI IMPRESSION: 1. Bilateral nonobstructing renal calculi. 2. Incidentally noted hepatic steatosis.
== END 2023-02-04 14:55 | disposition home or self-care (01) ==
LOC: HO.US 14:54
PROVIDERS: PCP Internal Medicine; Visit Provider Urology
DX: N20.0 Calculus of kidney (principal)
CPT/HCPCS: 76775

== ENCOUNTER 2023-02-06 14:58 | Outpatient (REF) | payer OTHER, SELFPAY ==
--- NOTE | ~2023-02-06 | MR_ITS ---
EXAMINATION: MR SHOULDER WITHOUT CONTRAST, RIGHT CLINICAL INFORMATION: Right shoulder pain, numbness, decreased range of motion. Intermittent weakness. COMPARISON: Most recent right shoulder radiographs dated 06/13/2020. TECHNIQUE: MRI of the shoulder without contrast was performed on a high-field scanner. FINDINGS: ROTATOR CUFF: Full-thickness partial tear of the supraspinatus tendon with thin anterior and posterior bursal surface tendon fibers remaining intact. Tearing extends into the anterior articular surface of the infraspinatus tendon. Overall tearing appears to measure up to 2.8 x 2.3 cm (AP by ML). Mild subscapularis tendinosis with distal linear intrasubstance partial tearing. No muscle atrophy or fatty infiltration. BICEPS: Intact. CORACOACROMIAL ARCH: The undersurface of the acromion is curved with no subacromial spur. Moderate acromioclavicular osteoarthritis with marrow and capsular edema. LABRUM/CAPSULE: No displaced labral tear. Intact inferior joint capsule. GLENOHUMERAL JOINT/MARROW: Tiny inferior glenoid marginal osteophytes. No acute osseous injury. Degenerative cystic change to the posterior aspect of the greater tuberosity. Trace joint effusion. MR/MR shoulder RT wo con IMPRESSION: 1. Full-thickness partial tear of the supraspinatus tendon with thin anterior and posterior bursal surface tendon fibers remaining intact. Tearing extends into the anterior articular surface of the infraspinatus tendon. Overall tearing measures 2.8 x 2.3 cm (AP x ML). Mild subscapularis tendinosis with distal linear intrasubstance partial tearing. 2. Moderate acromioclavicular osteoarthritis with marrow and capsular edema. 3. Minimal glenohumeral arthrosis. Trace joint effusion.
== END 2023-02-06 14:59 | disposition home or self-care (01) ==
LOC: HO.MRI 14:58
PROVIDERS: PCP Internal Medicine; Visit Provider Orthopaedic Surgery
DX: S43.431A Superior glenoid labrum lesion of right shoulder, initial encounter (principal); M19.011 Primary osteoarthritis, right shoulder
CPT/HCPCS: 73221

== ENCOUNTER → 2023-02-18 13:52 | Outpatient (BNVA) | payer OTHER, SELFPAY | PROVIDERS: PCP Internal Medicine; Visit Provider Urology ==

== ENCOUNTER 2023-02-25 06:40 | Outpatient (REF) | payer OTHER, SELFPAY ==
[2023-02-25 07:24] LABS: Hematocrit 43.2 % (42.0-52.0); Hemoglobin 14.6 g/dl (14.0-18.0); Mean Corpuscular HGB Conc 33.8 g/dl (31.0-36.0); Mean Corpuscular Hemoglobin 29.1 pg (27.0-33.0); Mean Corpuscular Volume 86.2 fL (80.0-98.0); Mean Platelet Volume 9.3 fL (9.4-12.4); Platelet Count 202 X10*3/uL (160-400); Red Blood Count 5.01 X10*6/uL (4.60-5.80); Red Cell Distribution Width 12.6 % (11.0-16.0); White Blood Count 7.3 X10*3/uL (4.8-10.8)
[2023-02-25 08:01] LABS: Alanine Aminotransferase 64 U/L (0-40); Alkaline Phosphatase 53 U/L (39-117); Anion Gap 12 (12-20); Aspartate Amino Transferase 42 U/L (5-37); Bilirubin Direct 0.2 mg/dL (0.0-0.5); Bilirubin Total 0.5 mg/dL (0.0-1.0); Blood Urea Nitrogen 14 mg/dL (9-16); Calcium 9.8 mg/dL (8.4-10.2); Carbon Dioxide 30 mmol/L (22-29); Chloride 101 mmol/L (96-108); Cholesterol 125 mg/dL; Estimated Glomerular Filt Rate > 60; Glucose Random 160 mg/dL (60-115); HDL Cholesterol 34 mg/dL; LDL Cholesterol Calculated 63 mg/dl; Sodium 139 mmol/L (135-145); Total Protein 7.5 g/dL (6.5-8.0); Triglycerides 143 mg/dL
[2023-02-25 08:21] LABS: Thyroid Stimulating Hormone 1.15 uIU/mL (0.32-4.0)
== END 2023-02-25 06:41 | disposition home or self-care (01) ==
LOC: HO.LAB 06:40
PROVIDERS: PCP Internal Medicine; Visit Provider Internal Medicine
DX: I10 Essential (primary) hypertension (principal)
CPT/HCPCS: 36415; 80048; 80061; 80076; 84443; 85027

== ENCOUNTER → 2023-03-09 11:20 | Outpatient (BNVA) | payer OTHER, SELFPAY | PROVIDERS: PCP Internal Medicine; Visit Provider Orthopaedic Surgery ==

== ENCOUNTER → 2023-04-20 10:58 | Outpatient (BNVA) | payer OTHER, SELFPAY | PROVIDERS: PCP Internal Medicine; Visit Provider Orthopaedic Surgery ==

== ENCOUNTER 2023-05-13 12:35 | Day surgery (SDC) | payer OTHER, SELFPAY ==
[2023-04-24 15:03] VITALS: BMI 36.0
--- NOTE | 2023-04-28 08:25 | P.CONAN_ITS ---
Documented by User: Haven Henriquez NP 05/05/23 14:39 HPI - Anesthesia Eval Consult details Narrative: 52yo M for Right Arthroscopic Rotator Cuff Repair w/poss biscep tenotomy vs tenodesis, 05/13/23 [facility] Active Problems Active Problems: All Active Problems (Updated 12/05/22 @ 09:51 by Bassam Fisher MD) AC joint arthropathy (Acute) Superior labrum faidgyru-xe-ldauthonb (SLAP) tear of right shoulder (Acute) Diverticulosis of colon (Acute) Colon polyps (Acute) Annual physical exam (Acute) Hypercalciuria (Acute) Sessile colonic polyp (Acute) Hypercholesterolemia (Acute) Essential hypertension (Acute) Class 2 severe obesity with body mass index (BMI) of 35 to 39.9 with serious comorbidity (Acute) Rotator cuff impingement syndrome of right shoulder (Acute) Rotator cuff impingement syndrome of left shoulder (Acute) Renal stones (Acute) Controlled diabetes mellitus type II without complication (Acute) Past Medical History Medical History (Updated 05/12/23 @ 11:04 by Cande Davila) Arthrosis of both acromioclavicular joints Class 2 severe obesity with body mass index (BMI) of 35 to 39.9 with serious comorbidity Controlled diabetes mellitus type II without complication Diverticulosis large intestine w/o perforation or abscess w/o bleeding Essential hypertension Hypercholesterolemia Left shoulder pain Renal stones Rotator cuff impingement syndrome of left shoulder Rotator cuff impingement syndrome of right shoulder Seasonal allergies Sessile colonic polyp Family History Family History Father Bleeding disorder Mother No problems noted. Maternal Aunt Cancer Paternal Uncle Diabetes Mother No problems noted. Father No problems noted. 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 Cognitive needs: No Hearing needs: No Vision needs: Yes (Glasses) Meds Allergies Allergy/AdvReac Type Severity Reaction Status Date / Time seafood Allergy Intermediate Nausea Verified 04/20/23 11:34 Iodinated Contrast Media AdvReac Severe NAUSEA/VOMITING Verified 04/20/23 11:34 [IV CONTRAST] FROM IV DYE Home Medications Medication Instructions Recorded Confirmed Last Taken Type aspirin 81 mg tablet 81 mg PO DAILY 07/10/20 01/08/23 Unknown History lancets 28 gauge #100 ea 10/10/20 01/08/23 Unknown History fexofenadine 60 mg tablet (Thuy 60 mg PO BID 02/25/21 01/08/23 Unknown History Allergy) Exam Exam Date and Time: April 28, 2023 0825 Height,Weight and Vital Signs: Height 5 ft 8 in Weight 107.501 kg Pertinent Lab Results Pertinent Lab Results: Laboratory Tests 02/25/23 02/25/23 06:46 06:46 WBC 7.3 Hgb 14.6 Hct 43.2 Plt Count 202 Sodium 139 Potassium 4.0 Chloride 101 Carbon Dioxide 30 H BUN 14 Creatinine 1.08 Laboratory Tests 01/08/23 08:47 Hgb A1c (Clinic) 6.3 H Assessment and Plan Assessment Anesthesia Assessment: Chart Reviewed Final Anesthetic Review Family History of Problems with Anesthesia: No History of Problems with Anesthesia: No Documented by User: Jayme Stokes MD 05/13/23 09:09 [facility] Past Medical History Medical History (Updated 05/12/23 @ 11:04 by Cande Davila) Arthrosis of both acromioclavicular joints Class 2 severe obesity with body mass index (BMI) of 35 to 39.9 with serious comorbidity Controlled diabetes mellitus type II without complication Diverticulosis large intestine w/o perforation or abscess w/o bleeding Essential hypertension Hypercholesterolemia Left shoulder pain Renal stones Rotator cuff impingement syndrome of left shoulder Rotator cuff impingement syndrome of right shoulder Seasonal allergies Sessile colonic polyp Family History Family History Father Bleeding disorder Mother No problems noted. Maternal Aunt Cancer Paternal Uncle Diabetes Mother No problems noted. Father No problems noted. 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 Cognitive needs: No Hearing needs: No Vision needs: Yes (Glasses) Meds Allergies Allergy/AdvReac Type Severity Reaction Status Date / Time seafood Allergy Intermediate Nausea Verified 04/20/23 11:34 Iodinated Contrast Media AdvReac Severe NAUSEA/VOMITING Verified 04/20/23 11:34 [IV CONTRAST] FROM IV DYE Home Medications Medication Instructions Recorded Confirmed Last Taken Type aspirin 81 mg tablet 81 mg PO DAILY 07/10/20 01/08/23 Unknown History lancets 28 gauge #100 ea 10/10/20 01/08/23 Unknown History fexofenadine 60 mg tablet (Thuy 60 mg PO BID 02/25/21 01/08/23 Unknown History Allergy) Exam Airway Mallampati Class: III TM Dist: >3cm Neck ROM: Limited Heart: rrr Lungs: cta Assessment and Plan Assessment Anesthesia Assessment: Anesthesia Plan Discussed Final Anesthetic Review NPO: Yes ASA Class: III Final Preanesthetic Review: No Changes in Pt Med Stat, Meds/Allgs Chart Reviewed, Consent Obtained/Reviewed and Anes Risks/Benef Reviewed Patient Risk: Intermediate Procedure Risk: Intermediate Anesthetic Plan Anesthetic Plan: GA and Regional Block Disposition: Standard PACU
[2023-05-13] VITALS (8 sets, daily range): BP systolic 117–151; BP diastolic 80–88; PULSE 75–82; RESP 16–20; TEMP 36.2–37; O2SAT 91–96
--- NOTE | 2023-05-13 | ECG_ITS ---
Test Reason : DM HTN Blood Pressure : / mmHG Vent. Rate : 075 BPM Atrial Rate : 075 BPM P-R Int : 136 ms QRS Dur : 092 ms QT Int : 384 ms P-R-T Axes : 051 -05 019 degrees QTc Int : 428 ms Normal sinus rhythm Normal ECG When compared with ECG of 27-JUL-2019 08:09, No significant change was found Referred By: Haven Henriquez Electronically Signed By:RAJENDRA COOK
[2023-05-13 13:21] LABS: Glucose, Whole Blood 128 mg/dL (60-115)
[2023-05-13] MEDS: Lactated Ringers 1,000 ML 100 ML IVCONT (13:57)
--- NOTE | 2023-05-13 14:03 | P.CONAN_ITS ---
HPI - Anesthesia Eval Consult details Narrative: right shoulder surgery [facility] Active Problems Active Problems: All Active Problems (Updated 05/13/23 @ 13:00 by Dodie Celeste RN) Annual physical exam (Acute) Hypercalciuria (Acute) Colon polyps (Acute) Diverticulosis of colon (Acute) Superior labrum beokdomg-mn-hpruhtidv (SLAP) tear of right shoulder (Acute) AC joint arthropathy (Acute) Sessile colonic polyp (Acute) Hypercholesterolemia (Acute) Essential hypertension (Acute) Class 2 severe obesity with body mass index (BMI) of 35 to 39.9 with serious comorbidity (Acute) Rotator cuff impingement syndrome of right shoulder (Acute) Rotator cuff impingement syndrome of left shoulder (Acute) Renal stones (Acute) Controlled diabetes mellitus type II without complication (Acute) Past Medical History Medical History Arthrosis of both acromioclavicular joints Class 2 severe obesity with body mass index (BMI) of 35 to 39.9 with serious comorbidity Controlled diabetes mellitus type II without complication Diverticulosis large intestine w/o perforation or abscess w/o bleeding Essential hypertension Hypercholesterolemia Left shoulder pain Renal stones Rotator cuff impingement syndrome of left shoulder Rotator cuff impingement syndrome of right shoulder Seasonal allergies Sessile colonic polyp Sleep apnea Family History Family History Father Bleeding disorder Mother No problems noted. Maternal Aunt Cancer Paternal Uncle Diabetes Mother No problems noted. Father No problems noted. Family history of problems with anesthesia: No Surgical History Surgical History Hx of arthroscopy of knee Hx of colonoscopy Hx of cystoscopy Hx of lithotripsy History of Problems with Anesthesia: No Social History Social History Household Members Other:: 1 son Housing: House Alcohol intake: current Alcohol intake frequency: does not drink Patient Tobacco Use Status: Former Tobacco user Tobacco use type: Cigar e-Cigarette/Vaping Use: Never Used Second Hand Smoke Exposure: No Use of substances other than those prescribed or required for medical reasons: No Advance Directives: No Advance Directives Information Provided: Yes service: No Current occupational status: employed 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 Cognitive needs: No Hearing needs: No Vision needs: Yes (Glasses) Meds Allergies Allergy/AdvReac Type Severity Reaction Status Date / Time seafood Allergy Intermediate Nausea Verified 04/20/23 11:34 Iodinated Contrast Media AdvReac Severe NAUSEA/VOMITING Verified 04/20/23 11:34 [IV CONTRAST] FROM IV DYE Active Medications: Current Medications Fentanyl (Fentanyl Citrate/Pf 100 Mcg/2 Ml Vial) 25 mcg IVPUSH Q5M PRN; Protocol PRN Reason: Pain, Moderate(Pain Scale 4-6) Hydromorphone HCl (Hydromorphone Hcl 0.5 Mg/0.5 Ml Syringe) 0.25 mg IVPUSH Q5M PRN; Protocol PRN Reason: Pain, Severe (Pain Scale 7-10) Lactated Ringer's (Lr) 1,000 mls @ 100 mls/hr IVCONT .Q10H OLEKSANDR Last Admin: 05/13/23 13:57 Dose: 100 mls/hr Home Medications Medication Instructions Recorded Confirmed Last Taken Type aspirin 81 mg tablet 81 mg PO DAILY 07/10/20 05/13/23 Unknown History lancets 28 gauge #100 ea 10/10/20 01/08/23 Unknown History fexofenadine 60 mg tablet (Thuy 60 mg PO DAILY 02/25/21 05/13/23 05/13/23 History Allergy) Exam Exam Date and Time: May 13, 2023 1403 Height,Weight and Vital Signs: Height 5 ft 8 in Weight 107.501 kg Last Vital Signs Temp 98.6 F 05/13/23 13:05 Pulse 76 05/13/23 13:05 Resp 16 05/13/23 13:05 BP 121/83 05/13/23 13:05 Pulse Ox 94 05/13/23 13:05 O2 Del Method Room Air 05/13/23 13:05 Pertinent Lab Results Pertinent Lab Results: Laboratory Tests 05/13/23 13:17 POC Glucose 128 H Airway Mallampati Class: III TM Dist: <=3cm Neck ROM: Full Heart: rrr Lungs: cta Assessment and Plan Assessment Anesthesia Assessment: Anesthesia Plan Discussed and Chart Reviewed Final Anesthetic Review Family History of Problems with Anesthesia: No History of Problems with Anesthesia: No NPO: Yes ASA Class: III Final Preanesthetic Review: No Changes in Pt Med Stat, Meds/Allgs Chart Reviewed, Consent Obtained/Reviewed and Anes Risks/Benef Reviewed Patient Risk: Intermediate Procedure Risk: Intermediate Anesthetic Plan Anesthetic Plan: GA and Regional Block Disposition: Standard PACU
--- NOTE | 2023-05-13 14:23 | MHC.SHP ---
Pre-Procedural Eval Section A Date of Service: 05/13/23 The patient is an INPATIENT: No Changes since office visit: No Cold of Flu in the past 2 weeks, No New Medical Problems, No Changes in Medication and No Patient answered all questions The History & Physical has been completed within 30 days and I have reviewed it.: Yes Section B Chief Complaint: Complete rotator cuff tear or rupture of right bernabe Allergies: Allergies Allergy/AdvReac Type Severity Reaction Status Date / Time seafood Allergy Intermediate Nausea Verified 04/20/23 11:34 Iodinated Contrast Media AdvReac Severe NAUSEA/VOMITING Verified 04/20/23 11:34 [IV CONTRAST] FROM IV DYE Plan I have reviewed the history and physical and performed a pertinent physical examination on my patient. No changes have occurred unless specified. Time Spent With Patient Time: Total time managing care of this patient today ____ minutes.
--- NOTE | 2023-05-13 16:10 | P.BOP_ITS ---
Brief Operative Note Date of Service: 05/13/23 Pre-op diagnosis: Right shoulder RTC tear Post-op diagnosis: same Procedure: Right RTC and SAD Implants: Pearson and Nephew Helacoil double loaded x 2 and Knotless Helacoil 5.5 x 2 Surgeon: Bassam Fisher MD Anesthesia: GETA and regional Was an Digital Media Analyst used for this Procedure?: Yes Digital Media Analyst: Yin Mondragon Estimated blood loss (mL): 5 IV fluids (mL): 1,000 Pathology: none sent Condition: stable Disposition: PACU
--- NOTE | 2023-05-13 16:14 | W.PM.OPN ---
Operative Note Operative Note Date of Service: 05/13/23 Narrative: Date of Service: 05/13/23 Pre-op diagnosis: Right shoulder RTC tear Post-op diagnosis: same Procedure: Right RTC and SAD Implants: Pearson and Nephew Helacoil double loaded x 2 and Knotless Helacoil 5.5 x 2 Surgeon: Bassam Fisher MD Anesthesia: GETA and regional Was an Suspect Artist Supervisor used for this Procedure?: Yes Suspect Artist Supervisor: Yin Mondragon Estimated blood loss (mL): 5 IV fluids (mL): 1,000 Pathology: none sent Condition: stable Disposition: PACU Procedure in detail: Patient was brought to the operating room and placed the the beach chair position. All bony prominences were well padded and the limb was prepped and draped in standard sterile fashion. A time out was called to identify proper site, proper procedure and proper surgeon. IV antibiotics per weight were administered. I began by making a posterolateral stab incision with a 15 blade. A blunt trochar was placed into the glenohumeral joint and I insufflated the joint with saline and a 30 degree arthroscope was placed. I established an outside- in anterior portal just distal to the biceps tendon. I then began my inspection of the glenohumeral joint. There was intact biceps and labral anchor with mild degenerative tearing of the labrum superiorly. There were no cartialge changes of the humeral head or glenoid. There was a full thickness undersurface RTC tear. The subcapularis was intact. I debrided the loose cartilage of the superior labrum. I then removed the trochar and entered the subacromial space. A direct lateral portal was then established and I performed a bursectomy. The cuff was then examined. There was a full thickness tear of the supra and infraspinatus without retraction. I then placed two medial row double loaded anchors and then brought the suture tape through the medial cuff. I added one looped suture at the anterior most aspect of the tear. I then debrided the bare area down to bleeding bone and, using a cross bridge configuration, brought the limbs to each of two lateral 5.5 anchors. This re-approximated the cuff anatomy near anatomically. I then performed a 5 mm subacromial decompression. Once I was satisfied with the repair final images were captured and I removed all instrumentation. Portals were closed with nylon. Patient was placed in an abduction sling, extubated and brought to the recovery room in stable condition. There were no known complications.
[2023-05-13] MEDS: Acetaminophen 1,000 MG/100 ML PIGGYBACK 400 MG IV (17:13)
== END 2023-05-13 17:29 | disposition home or self-care (01) ==
LOC: HO.SSS 12:36
PROVIDERS: PCP Internal Medicine; Visit Provider Orthopaedic Surgery
PROC: (CPT 29827; principal; 2023-05-13 14:40)
DX: M75.121 Complete rotator cuff tear or rupture of right shoulder, not specified as traumatic (principal); M75.41 Impingement syndrome of right shoulder; M19.011 Primary osteoarthritis, right shoulder; M19.012 Primary osteoarthritis, left shoulder; S43.431A Superior glenoid labrum lesion of right shoulder, initial encounter; X58.XXXA Exposure to other specified factors, initial encounter; Y93.9 Activity, unspecified; Y92.9 Unspecified place or not applicable; Y99.8 Other external cause status; I10 Essential (primary) hypertension; E78.00 Pure hypercholesterolemia, unspecified; E11.9 Type 2 diabetes mellitus without complications; N20.0 Calculus of kidney; J30.2 Other seasonal allergic rhinitis; E66.01 Morbid (severe) obesity due to excess calories; Z68.36 Body mass index [BMI] 36.0-36.9, adult; Z79.82 Long term (current) use of aspirin; Z79.84 Long term (current) use of oral hypoglycemic drugs; Z79.899 Other long term (current) drug therapy; Z91.041 Radiographic dye allergy status; Z87.891 Personal history of nicotine dependence
CPT/HCPCS: 29827; 29826; 82947; 93005; C1713; J0131; J0171; J0690; J1100; J2405; J3010

== ENCOUNTER → 2023-05-13 12:35 | Outpatient (BNV) | payer OTHER, SELFPAY | PROVIDERS: PCP Internal Medicine; Visit Provider Orthopaedic Surgery | DX: M75.121 Complete rotator cuff tear or rupture of right shoulder, not specified as traumatic (principal) | CPT/HCPCS: 29827 ==

== ENCOUNTER 2023-05-21 11:03 | Outpatient (AMB) | payer OTHER, SELFPAY ==
--- NOTE | 2023-05-21 11:19 | A.OFFVIS_ITS ---
Intake Vital Signs 05/21/23 11:20 Height 5 ft 8 in Weight 236 lb BMI 35.9 Intake Visit Reasons: PO RT RTC Repair 05/13/23NE Intake Note: Trevor a 52 year old male who presents today for a post operative RT RTC Repair 05/13/23 NE. Patient reports he is doing well, states mild pain. He has no concerns today. Allergies seafood Allergy (Intermediate, Verified 05/21/23 11:21) Nausea Iodinated Contrast Media [IV CONTRAST] Adverse Reaction (Severe, Verified 05/21/23 11:21) NAUSEA/VOMITING FROM IV DYE HPI PO RT RTC Repair 05/13/23NE HPI Details 52-year-old male who returns to the [facility] today for post-op right RTC repair, 05/13/[address] Fisher. He states he has mild pain but is doing well overall. He is about to start physical therapy on 05/25/23. He has no concerns today. [facility] Medical History Arthrosis of both acromioclavicular joints Class 2 severe obesity with body mass index (BMI) of 35 to 39.9 with serious comorbidity Controlled diabetes mellitus type II without complication Diverticulosis large intestine w/o perforation or abscess w/o bleeding Essential hypertension Hypercholesterolemia Left shoulder pain Renal stones Rotator cuff impingement syndrome of left shoulder Rotator cuff impingement syndrome of right shoulder Seasonal allergies Sessile colonic polyp Sleep apnea Surgical History Hx of lithotripsy Hx of cystoscopy Hx of colonoscopy Hx of arthroscopy of knee Family History Father Bleeding disorder Mother No problems noted. Maternal Aunt Cancer Paternal Uncle Diabetes Mother No problems noted. Father No problems noted. 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 No erythema or drainage. NVI. Assessment & Plan Assessment & Plan (1) Rotator cuff impingement syndrome of right shoulder: Code(s): M75.41 - Impingement syndrome of right shoulder (2) Superior labrum rekmzdmo-tp-pchlwnhva (SLAP) tear of right shoulder: Code(s): S43.431A - Superior glenoid labrum lesion of right shoulder, initial encounter Plan Sutures removed today, steri strips applied. I explained the use of the sling. He can remove it for hygiene and therapy exercises. He will begin a course of physical therapy on 05/26/23 to work on ROM and periscapular stabilization, no RTC strengthening at this time. He will see us back in 4 weeks for routine post- op appointment, sooner if needed. Patient Instructions: Scribed for Jon Srinivasan PA-C, by Sidney Deluna electromedical service engineer, on 05/21/2023 at 11:00 AM EST. I, Jon Srinivasan PA-C, have personally reviewed and agree with the information entered by the scribe. Coding Level of Care Code Global (18680) Diagnoses Rotator cuff impingement syndrome of right shoulder M75.41 Superior labrum vfftftpu-qh-umuqnnodi (SLAP) tear of right shoulder S43.431A
[2023-05-21 11:20] VITALS: BMI 35.9
== END 2023-05-21 12:21 | disposition home or self-care (01) ==
PROVIDERS: PCP Internal Medicine; Visit Provider Physician Assistant
DX: M75.41 Impingement syndrome of right shoulder (principal); S43.431A Superior glenoid labrum lesion of right shoulder, initial encounter
CPT/HCPCS: 99024

== ENCOUNTER → 2023-05-21 11:03 | Outpatient (BNVA) | payer OTHER, SELFPAY | PROVIDERS: PCP Internal Medicine; Visit Provider Physician Assistant ==

== ENCOUNTER 2023-06-18 08:21 | Outpatient (AMB) | payer OTHER, SELFPAY ==
--- NOTE | 2023-06-18 08:38 | MHC.OFFVIS ---
Intake Intake Visit Reasons: PO RT RTC Repair 05/13/23NE Intake Note: Trevor is a 52 year old right hand dominant male who presents today for a post operative appointment s/p Right Rotator Cuff Repair 05/13/23. He was to continue work on ROM and periscapular stabilization, no RTC strengthening. He reports minimal pain and is taking Tylenol as needed. Allergies seafood Allergy (Intermediate, Verified 06/18/23 08:38) Nausea Iodinated Contrast Media [IV CONTRAST] Adverse Reaction (Severe, Verified 06/18/23 08:38) NAUSEA/VOMITING FROM IV DYE Medication List - Last Reconciled 06/18/23 by Mary De La Cruz, RN allopurinol 100 mg PO DAILY 90 days aspirin 81 mg PO DAILY blood sugar diagnostic (FreeStyle Test strips) USE DIRECTED 3 TIMES A DAY fexofenadine (Thuy Allergy) 60 mg PO DAILY indapamide 2.5 mg PO DAILY 90 days lancets As directed lancets test 3 times per day lisinopril 10 mg PO DAILY metformin 1,000 mg PO BID oxycodone-acetaminophen 5-325 mg (Percocet) 1 tab PO Q4-6H PRN 7 days potassium citrate ER 20 mEq (2 x 10 mEq (1,080 mg)) PO BID 90 days simvastatin 10 mg PO DAILY sitagliptin phosphate (Januvia) 50 mg PO DAILY HPI PO RT RTC Repair 05/13/23NE HPI Details Trevor is a 52 year old man presenting ~5 weeks S/P right RTC repair with SAD. He says he is doing well overall. He has some pain but this is managed with Tylenol and is tolerable. He has been working with PT on ROM and scapular stabilization, with no strengthening exercises. [facility] Medical History Arthrosis of both acromioclavicular joints Class 2 severe obesity with body mass index (BMI) of 35 to 39.9 with serious comorbidity Controlled diabetes mellitus type II without complication Diverticulosis large intestine w/o perforation or abscess w/o bleeding Essential hypertension Hypercholesterolemia Left shoulder pain Renal stones Rotator cuff impingement syndrome of left shoulder Rotator cuff impingement syndrome of right shoulder Seasonal allergies Sessile colonic polyp Sleep apnea Surgical History Hx of lithotripsy Hx of cystoscopy Hx of colonoscopy Hx of arthroscopy of knee Family History Father Bleeding disorder Mother No problems noted. Maternal Aunt Cancer Paternal Uncle Diabetes Mother No problems noted. Father No problems noted. 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 Cognitive needs: No Hearing needs: No Vision needs: Yes (Glasses) Review of Systems Const All systems reviewed & are unremarkable except as noted in HPI and below Physical Exam Const General: no acute distress, alert and awake Orientation/consciousness: patient oriented x3 HEENT Head: Yes normocephalic and Yes atraumatic Eyes EOM: EOMs intact bilaterally Resp Effort & Inspection: normal respiratory effort and able to speak in complete sentences Cardio Jugular venous distension: no JVD Skin General skin exam: turgor normal Rashes: no rashes Neuro General: patient oriented x3 Extrem Other: Right Shoulder: 90/120/35 inc c/d/i Psych Appearance: grossly normal Affect: normal affect Attitude: cooperative Assessment & Plan Assessment & Plan (1) Tear of right rotator cuff: Code(s): M75.101 - Unspecified rotator cuff tear or rupture of right shoulder, not specified as traumatic Plan: This is a 52 year old man S/P right shoulder RTC repair with SAD, DOS: 05/13/23. He says he is doing well and his pain is tolerable & managed with Tylenol. He has been working with PT on ROM exercises. I recommend he continue with PT on ER and stabilization, and discontinue his sling at this time. He will avoid any lifting activities and care with abduction but can slowly resume all other normal activities as tolerated. He will follow up in 6 weeks. Plan Scribed for Bassam Fisher MD by Waylon Mcfarland, medical clinic manager, on 06/18/23 at 9:00 AM, EST. Orders: Orders PT Evaluation and Treatment 06/18/23 M75.101 - Unspecified rotator cuff tear or rupture of right shoulder, not specified as traumatic Coding Level of Care Code Global (13549) Diagnoses Tear of right rotator cuff M75.101
== END 2023-06-18 09:35 | disposition home or self-care (01) ==
PROVIDERS: PCP Internal Medicine; Visit Provider Orthopaedic Surgery
DX: M75.101 Unspecified rotator cuff tear or rupture of right shoulder, not specified as traumatic (principal)
CPT/HCPCS: 99024

== ENCOUNTER → 2023-06-18 08:21 | Outpatient (BNVA) | payer OTHER, SELFPAY | PROVIDERS: PCP Internal Medicine; Visit Provider Orthopaedic Surgery ==

== ENCOUNTER 2023-07-30 08:20 | Outpatient (AMB) | payer OTHER, SELFPAY ==
--- NOTE | 2023-07-30 08:23 | MHC.OFFVIS ---
Intake Vital Signs 07/30/23 08:30 Height 5 ft 8 in Weight 236 lb BMI 35.9 Intake Visit Reasons: PO RT RTC Repair 05/13/23NE Intake Note: Trevor is a 52 year old right hand dominant male who presents today for a post operative appointment s/p Right Rotator Cuff Repair 05/13/23 Patient reports that he is doing well, he had no concerns at this time. He is currently taking it slow at work and restricting from any lifting with the right arm Allergies seafood Allergy (Intermediate, Verified 06/18/23 08:38) Nausea Iodinated Contrast Media [IV CONTRAST] Adverse Reaction (Severe, Verified 06/18/23 08:38) NAUSEA/VOMITING FROM IV DYE HPI PO RT RTC Repair 05/13/23NE HPI Details Trevor is a 52 year old man presenting ~10 weeks S/P right RTC repair with SAD. He says he is doing well overall. He denies any pain or other concerns at this time. He has been working with PT on ROM and scapular stabilization, and discontinued his sling at his last appointment. He has been working light duty at work, with no lifting with his right arm. [facility] Medical History Sleep apnea Seasonal allergies Hypercholesterolemia Essential hypertension Diverticulosis large intestine w/o perforation or abscess w/o bleeding Sessile colonic polyp Arthrosis of both acromioclavicular joints Rotator cuff impingement syndrome of right shoulder Rotator cuff impingement syndrome of left shoulder Renal stones Left shoulder pain Class 2 severe obesity with body mass index (BMI) of 35 to 39.9 with serious comorbidity Controlled diabetes mellitus type II without complication Surgical History Hx of lithotripsy Hx of cystoscopy Hx of colonoscopy Hx of arthroscopy of knee Family History Father Bleeding disorder Mother No problems noted. Maternal Aunt Cancer Paternal Uncle Diabetes Mother No problems noted. Father No problems noted. 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 Cognitive needs: No Hearing needs: No Vision needs: Yes (Glasses) Review of Systems Const All systems reviewed & are unremarkable except as noted in HPI and below Physical Exam Vital Signs: BMI result Body Mass Index 35.9 Const General: no acute distress, alert and awake Orientation/consciousness: patient oriented x3 HEENT Head: Yes normocephalic and Yes atraumatic Eyes EOM: EOMs intact bilaterally Resp Effort & Inspection: normal respiratory effort and able to speak in complete sentences Cardio Jugular venous distension: no JVD Skin General skin exam: turgor normal Rashes: no rashes Neuro General: patient oriented x3 Extrem Other: Right Shoulder: 90/120/35 inc c/d/i Neg empty can + scapular recruitment with overhead motion Psych Appearance: grossly normal Affect: normal affect Attitude: cooperative Assessment & Plan Assessment & Plan (1) Tear of right rotator cuff: Code(s): M75.101 - Unspecified rotator cuff tear or rupture of right shoulder, not specified as traumatic Plan: This is a 52 year old man S/P right shoulder RTC repair with SAD, DOS: 05/13/23. He says he is doing well and denies any pain. He has been working with PT on ROM exercises, and has returned to work with no lifting with his RUE. No unnecessary lifting. ROM exercises. Continue as needed and may follow up PRN. Coding Level of Care Code Global (27689) Diagnoses Tear of right rotator cuff M75.101
[2023-07-30 08:30] VITALS: BMI 35.9
== END 2023-07-30 09:01 | disposition home or self-care (01) ==
PROVIDERS: PCP Internal Medicine; Visit Provider Orthopaedic Surgery
DX: M75.101 Unspecified rotator cuff tear or rupture of right shoulder, not specified as traumatic (principal)
CPT/HCPCS: 99024

== ENCOUNTER → 2023-07-30 08:20 | Outpatient (BNVA) | payer OTHER, SELFPAY | PROVIDERS: PCP Internal Medicine; Visit Provider Orthopaedic Surgery ==

== ENCOUNTER 2023-08-14 15:59 | Outpatient (REF) | payer OTHER, SELFPAY ==
--- NOTE | ~2023-08-14 | US_ITS ---
EXAMINATION: US RETROPERITONEAL LIMITED (RENAL ONLY) CLINICAL INFORMATION: Calculus of kidney. COMPARISON: Renal ultrasound 02/04/2023 and 05/29/2022. X-ray KUB 06/24/2017 and 06/17/2017. CT of abdomen and pelvis 05/15/2017. TECHNIQUE: Real-time imaging of the kidneys. FINDINGS: RIGHT KIDNEY: 12.9 x 5.4 x 6.3 cm (SAG x AP x TRV). The kidney is normal in size, contour, and echogenicity. Renal cortical thickness is normal. No focal parenchymal lesions or hydronephrosis. 5 x 4 x 6 mm nonobstructing calculus in the lower pole. LEFT KIDNEY: 11.2 x 5.7 x 6.3 cm (SAG x AP x TRV). The kidney is normal in size, contour, and echogenicity. Renal cortical thickness is normal. No focal parenchymal lesions or hydronephrosis. 11 x 4 x 11 mm nonobstructing calculus in the lower pole. US/US renal BI IMPRESSION: Bilateral nonobstructing renal calculi. No hydronephrosis.
== END 2023-08-14 16:00 | disposition home or self-care (01) ==
LOC: HO.US 15:59
PROVIDERS: PCP Internal Medicine; Visit Provider Urology
DX: N20.0 Calculus of kidney (principal)
CPT/HCPCS: 76775

== ENCOUNTER 2023-10-15 14:39 | Outpatient (AMB) | payer OTHER, SELFPAY ==
[2023-10-15 14:51] VITALS: BMI 35.9
--- NOTE | 2023-10-15 14:51 | MHC.OFFVIS ---
Intake Vital Signs 10/15/23 14:51 Height 5 ft 8 in Weight 236 lb BMI 35.9 Intake Visit Reasons: OV-RT RTC Repair 05/13/23NE-follow up Intake Note: Trevor is a 52 year old man who presents today for a post operative appointment S/P right shoulder RTC repair with SAD, DOS: 05/13/23. He states that he is doing well and denies any pain. He has been working with PT on ROM exercises, and has returned to work with no lifting with his RUE. No unnecessary lifting. ROM exercises. Allergies seafood Allergy (Intermediate, Verified 06/18/23 08:38) Nausea Iodinated Contrast Media [IV CONTRAST] Adverse Reaction (Severe, Verified 06/18/23 08:38) NAUSEA/VOMITING FROM IV DYE HPI OV-RT RTC Repair 05/13/23NE-follow up HPI Details Doing very well. No complaints. [facility] Medical History Sleep apnea Seasonal allergies Hypercholesterolemia Essential hypertension Diverticulosis large intestine w/o perforation or abscess w/o bleeding Sessile colonic polyp Arthrosis of both acromioclavicular joints Rotator cuff impingement syndrome of right shoulder Rotator cuff impingement syndrome of left shoulder Renal stones Left shoulder pain Class 2 severe obesity with body mass index (BMI) of 35 to 39.9 with serious comorbidity Controlled diabetes mellitus type II without complication Surgical History Hx of lithotripsy Hx of cystoscopy Hx of colonoscopy Hx of arthroscopy of knee Family History Father Bleeding disorder Mother No problems noted. Maternal Aunt Cancer Paternal Uncle Diabetes Mother No problems noted. Father No problems noted. 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 Cognitive needs: No Hearing needs: No Vision needs: Yes (Glasses) Review of Systems Const All systems reviewed & are unremarkable except as noted in HPI and below Physical Exam Vital Signs: BMI result Body Mass Index 35.9 Const General: no acute distress, alert and awake Orientation/consciousness: patient oriented x3 HEENT Head: Yes normocephalic and Yes atraumatic Eyes EOM: EOMs intact bilaterally Resp Effort & Inspection: normal respiratory effort and able to speak in complete sentences Cardio Jugular venous distension: no JVD Skin General skin exam: turgor normal Rashes: no rashes Neuro General: patient oriented x3 Extrem Other: full ROM portals c/d/i Psych Appearance: grossly normal Affect: normal affect Attitude: cooperative Assessment & Plan Assessment & Plan (1) Tear of right rotator cuff: Code(s): M75.101 - Unspecified rotator cuff tear or rupture of right shoulder, not specified as traumatic Plan: Doing well. Full ROM May return to work as tolerated Coding Level of Care Code Est Pt Level 3 (58394) Diagnoses Tear of right rotator cuff M75.101
== END 2023-10-15 15:22 | disposition home or self-care (01) ==
PROVIDERS: PCP Internal Medicine; Visit Provider Orthopaedic Surgery
DX: M75.101 Unspecified rotator cuff tear or rupture of right shoulder, not specified as traumatic (principal)
CPT/HCPCS: 99212

== ENCOUNTER → 2023-10-15 14:39 | Outpatient (BNVA) | payer OTHER, SELFPAY | PROVIDERS: PCP Internal Medicine; Visit Provider Orthopaedic Surgery ==

== ENCOUNTER 2023-10-20 07:00 | Outpatient (RCR) | payer OTHER, SELFPAY ==
--- NOTE | 2023-05-29 14:26 | MHC.PT.EP ---
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 Fisher). Pt had stitches taken out at time of appt, presents with steri-strips intact over R UE (no concern for infection noted this date). Pt presents to office for PT appt wearing sling with abd wedge in proper format demonstrating good safety and insight to precautions/restrictions. Pt presents to office with his who was educated with him re: therapy goals and expectations. Pt will be seen in PT once weekly until six week follow up appt then will be increased to twice weekly for AAROM>AROM>strength progression per protocol. Pt was educated in recommendation of komal shoulder, reviewed safety in regard to protocol/ sling usage. Pt exhibits excellent rehab prognosis and is motivated to return to ADLs/IADLS with improved functional use of R UE. Of note: pt expressed he did not take any pain medication prior to session and was very guarded/painful with atttempt of PROM this date. Pt encouraged to take pain medication prior to next session. Frequency and Duration: The patient will be seen 1x/week x 6 weeks, 2x/week x 4 weeks Short Term Goals: 1. AAROM flexion to 100 degrees. (when allowed per protocol). 2. AAROM IR to midline L4 for hygiene (when allowed per protocol). 3. AAROM ER to C7. ( when cleared per protocol.) 4. Initiate carryover of safety/joint protection following RTC repair. 5. Initiate AAROM 6 weeks per protocol. [facility] Goals: 1. AAROM>AROM flexion R UE to 150 degrees to reach into cabinet overhead. 2. AAROM ER to C7 to dress/hygiene MOD I. 3. AAROM IR L3 midline to don belt. 4. Resume ability to sleep in R SL without pain >11/21. 5. Resume household tasks such as yard work MOD I with functional use of R UE. Treatment Plan: Modalities to reduce pain, spasms and effusion. Manual therapy to restore motion and function. Therapeutic exercise to improve strength and flexibility. Neuromuscular re-education for posture and balance. Therapeutic activities to return to functional activities of daily living. Electronically signed by: Cathy Moffett, PT, DPT Please sign and return to therapist. Thank you for your referral.
--- NOTE | 2023-06-18 07:30 | MHC.PT.OD ---
[facility] [place] Office [place] Office [place] Office [address] Tiffanie Cheek [address] [phone] F: [phone] F: [phone] F: [phone] F: [phone] Physical Therapy Daily Note Diagnosis: PT eval and treat, s/p RTC repair and SAD Impingement syndrome of right shoulder signed by Yin Mondragon PA-C date of script 05/21/23 Date of Surgery: Date of Evaluation: 05/26/23 Date of Treatment: 06/16/23 Treatments to Date: Cancellations to Date: No Shows to Date: Authorized Visits: 6 Insurance End Date: Precautions/ Contraindications:R UE supraspinatus and infraspinatus repaired DOS 05/13/23 Dr. Fisher R UE dominant hx cervical stenosis Subjective: Doing well. Pain Score and Location: 11/21 R shoulder Objective Flowsheet: Tests & Measures see eval Exercises Pendulums, cues to bend over at trunk vs standing upright, cues to ensure pendulums are pain-free. Review of isometric scapular retraction with arms by side pain-free ROM x 3 sec hold x 8R. Ice to R shoulder x 10 minutes. IASTM lateral/proximal shoulder with HG #9 erythema response with strumming technique, educated to refrain from pulling steri-strips. PROM elbow extension, PROM shoulder flexion grossly 80 degrees limited by pain/guarding, PROM ER to neutral, improvement in PROM flexion/abd tolerance, PROM elbow extension. Expectations/ recovery, AROM of elbow/hand/wrist , sling use/support Modalities Assessment: 06/12/23: Pt PROM flexion to near 90 this date. Pt doing well. Pt to see orthopedics 06/18/23 at 8:45am. Pt complaint in sling use. 06/16/23: Pt to see Dr. Fishre on 06/18/23. Pt compliant with sling use. Await updated orders. 06/05/23: Pt demonstrated improved PROM tolerance this date compared to earlier in the week. Pt expressing resolved parathesias with exception of R index fnger which has a history of previous injury. 06/09/23: Pt doing well with PROM. Pt compliant with sling usage. 06/02/23: Pt exhibits erythema response in IASTM to lateral shoulder (completed while supine this date). PROM tolerance ~70 degrees flexion. Passive elbow extension near full. Pt offered secondary appt this week due to degree of stiffness/discomfort. 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 Fisher). Pt had stitches taken out at time of appt, presents with steri-strips intact over R UE (no concern for infection noted this date). Pt presents to office for PT appt wearing sling with abd wedge in proper format demonstrating good safety and insight to precautions/restrictions. Pt presents to office with his who was educated with him re: therapy goals and expectations. Pt will be seen in PT once weekly until six week follow up appt then will be increased to twice weekly for AAROM>AROM>strength progression per protocol. Pt was educated in recommendation of komal shoulder, reviewed safety in regard to protocol/ sling usage. Pt exhibits excellent rehab prognosis and is motivated to return to ADLs/IADLS with improved functional use of R UE. Of note: pt expressed he did not take any pain medication prior to session and was very guarded/painful with attempt of PROM this date. Pt encouraged to take pain medication prior to next session. PT Plan: 1x/week for the first 6 weeks PROM, then 2x/week for AAROM program, strength phase when cleared per Dr. Fisher Short Term Goals: 1. AAROM flexion to 100 degrees. (when allowed per protocol). 2. AAROM IR to midline L4 for hygiene (when allowed per protocol). 3. AAROM ER to C7. ( when cleared per protocol.) 4. Initiate carryover of safety/joint protection following RTC repair. 5. Initiate AAROM 6 weeks per protocol. Longterm Goals: 1. AAROM>AROM flexion R UE to 150 degrees to reach into cabinet overhead. 2. AAROM ER to C7 to dress/hygiene MOD I. 3. AAROM IR L3 midline to don belt. 4. Resume ability to sleep in R SL without pain >3. 5. Resume household tasks such as yard work MOD I with functional use of R UE. Electronically signed by: Cathy Moffett, PT, DPT
--- NOTE | 2023-07-30 07:50 | MHC.PT.OD ---
[facility] [place] Office [employer] [place] Office [address] Tiffanie Cheek [address] [phone] F: [phone] F: [phone] F: [phone] F: [phone] Physical Therapy Daily Note Diagnosis: PT eval and treat, s/p RTC repair and SAD Impingement syndrome of right shoulder signed by Yin Mondragon PA-C date of script 05/21/23 Date of Surgery: Date of Evaluation: 05/26/23 Date of Treatment: 07/30/23 Treatments to Date: Cancellations to Date: No Shows to Date: Authorized Visits: 16 Insurance End Date: Precautions/ Contraindications:R UE supraspinatus and infraspinatus repaired DOS 05/13/23 Dr. Fisher R UE dominant hx cervical stenosis Subjective: Pt expressing he is sore somedays, has been doing AAROM program twice a day, icing, and using tylenol prn. Pain Score and Location: 10/24 R shoulder Objective Flowsheet: Tests & Measures see eval AAROM flexion supine 155, scaption 135 degrees ER at 45 70 degrees IR AAROM near midline in standing with strap Exercises Pendulums for gentle warm-up, AAROM table slides for shoulder flexion and scaption x 10 sec hold x 5R each, AAROM cane ER supine and wall reviewed, AAROM seated mu x5R x 20 sec hold, for flexion and abduction, standing AAROM ER with towel roll x5R x 20 sec hold each, review of modified pec/ standing corner stretch x 20 sec hold x 4R, AAROM flexion raising with aide of left UE x 5R AAROM cane flexion in supine x 5R x 20 sec hold, ice to R shoulder supine x 10 minutes. PROM R shoulder all planes to tolerance, STM to teres and R UT in L SL post PROM, followed by application of ice x 10 minutes (anterior/posterior R shoulder). Expectations/ recovery, AROM of elbow/hand/wrist , sling use/support Modalities Assessment: 07/30/23: Pt is 11 weeks, one day post op. Pt is doing well overall and compliant with his HEP. Pt is eager to initiate next phase of recovery/strengthening as cleared per surgeon. Pt states he is using tylenol prn for discomfort and has been able to lie on his R shoulder short amounts while in bed. He reports improving functional tolerance for ADLs but admits does have muscle twitching and fatigue with attempt for limited active elevation. 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 Since that time he has been a little more stiff in end range. Active elevation ~90 degrees comfortably prior to compensatory shrug observed today. He has been advised to continue AAROM program several times daily to tolerance and perform supine cane tasks to promote end range. Please advise and allow for progression into next phase of protocol. 07/21/23: Pt expressing some increased soreness overall in shoulder 4-02/21 this date. Pt encouraged to ice shoulder, or use tylenol prn, be mindful of AROM vs AAROM movements in the shoulder. Pt encouraged to perform more AAROM vs AROM due to fatigue. Pt to see Dr. Fisher next week. 07/16/23: Pt advancing in AAROM; encouraged AAROM cane ER in supine. 07/14/23: Pt initated in standing corner stretch with education to refrain from overstretching/pushing into pain. Pt able to perform AAROM with good tolerance scaption to 135 degrees. 07/10/23: Pt expressing some soreness with increased use/writing R UE at work. Has been sleeping a litte better at night past few days. 07/07/23: Pt demonstrating advancement in AAROM. Flexion to 135 degrees, AAROM abduction to 130. Pt able to advance midline L3 with with cane movement. 07/03/23: Pt advancing AAROM program. Flexion AAROM~ 110 degrees. 06/30/23: Initiated AAROM flexion and scaption to tolerance, encouraged low intensity gentle stretch within painfree ranges. Pt PROM flexion ~100, ER ~45 at 45, scaption ~100, IR to lateral buttocks. Pt expressing he is hoping to RTW next Thursday, plan to resume driving on per clearance of Dr. Fisher. Pt doing very well overall and compliant with home program. 06/25/23: Pt doing well with initiation of AAROM program (AAROM ER and AAROM IR added today). 06/23/23: Pt to initiate AAROM program tomorrow (will be six weeks at that time). 06/18/23: Pt is five weeks post op, will be six weeks post op on 06/24/23. Pt has an appt with Dr. Fisher office today at 8:45am. Await updated MD orders. Pt doing well, compliant with sling use, not driving, remains OOW. Reports use of Tylenol and ice. 06/12/23: Pt PROM flexion to near 90 this date. Pt doing well. Pt to see orthopedics 06/18/23 at 8:45am. Pt complaint in sling use. 06/16/23: Pt to see Dr. Fisher on 06/18/23. Pt compliant with sling use. Await updated orders. 06/05/23: Pt demonstrated improved PROM tolerance this date compared to earlier in the week. Pt expressing resolved parathesias with exception of R index fnger which has a history of previous injury. 06/09/23: Pt doing well with PROM. Pt compliant with sling usage. 06/02/23: Pt exhibits erythema response in IASTM to lateral shoulder (completed while supine this date). PROM tolerance ~70 degrees flexion. Passive elbow extension near full. Pt offered secondary appt this week due to degree of stiffness/discomfort. 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 Fisher). Pt had stitches taken out at time of appt, presents with steri-strips intact over R UE (no concern for infection noted this date). Pt presents to office for PT appt wearing sling with abd wedge in proper format demonstrating good safety and insight to precautions/restrictions. Pt presents to office with his who was educated with him re: therapy goals and expectations. Pt will be seen in PT once weekly until six week follow up appt then will be increased to twice weekly for AAROM>AROM>strength progression per protocol. Pt was educated in recommendation of icing shoulder, reviewed safety in regard to protocol/ sling usage. Pt exhibits excellent rehab prognosis and is motivated to return to ADLs/IADLS with improved functional use of R UE. Of note: pt expressed he did not take any pain medication prior to session and was very guarded/painful with attempt of PROM this date. Pt encouraged to take pain medication prior to next session. PT Plan: 1x/week for the first 6 weeks PROM, then 2x/week for AAROM program, strength phase when cleared per Dr. Fisher Short Term Goals: 1. AAROM flexion to 100 degrees. (when allowed per protocol). 2. AAROM IR to midline L4 for hygiene (when allowed per protocol). 3. AAROM ER to C7. ( when cleared per protocol.) 4. Initiate carryover of safety/joint protection following RTC repair. 5. Initiate AAROM 6 weeks per protocol. Shelter Goals: 1. AAROM>AROM flexion R UE to 150 degrees to reach into cabinet overhead. 2. AAROM ER to C7 to dress/hygiene MOD I. 3. AAROM IR L3 midline to don belt. 4. Resume ability to sleep in R SL without pain >3/10. 5. Resume household tasks such as yard work MOD I with functional use of R UE. Electronically signed by: Cathy Moffett, PT, DPT
== END 2024-03-07 07:15 | disposition home or self-care (01) ==
LOC: HO.PTWFD 07:00
PROVIDERS: PCP Internal Medicine; Visit Provider Physician Assistant
DX: M75.41 Impingement syndrome of right shoulder (principal)
CPT/HCPCS: 97110; 97140; 97150; 97162; 97535

== ENCOUNTER 2023-10-20 10:30 | Outpatient (AMB) | payer OTHER, SELFPAY ==
--- NOTE | 2023-10-20 11:04 | MHC.OFFVIS ---
Intake Intake Visit Reasons: 6m/US/litholink(set) Intake Note: Patient is Present for Follow Up Ultrasound/Litholink results Urology Medication: none Antibiotic Allergies:none Blood Thinners:aspirin Allergies seafood Allergy (Intermediate, Verified 10/20/23 11:05) Nausea Iodinated Contrast Media [IV CONTRAST] Adverse Reaction (Severe, Verified 10/20/23 11:05) NAUSEA/VOMITING FROM IV DYE Medication List - Last Reconciled 10/20/23 by Torin Logan MD allopurinol 100 mg PO DAILY 90 days aspirin 81 mg PO DAILY blood sugar diagnostic (FreeStyle Test strips) USE DIRECTED 3 TIMES A DAY fexofenadine (Thuy Allergy) 60 mg PO DAILY indapamide 2.5 mg PO DAILY 90 days lancets test 3 times per day lancets As directed lisinopril 10 mg PO DAILY metformin 1,000 mg PO BID potassium citrate ER 10 mEq PO BID 90 days simvastatin 10 mg PO DAILY sitagliptin phosphate (Januvia) 50 mg PO DAILY HPI HPI Comments History of Present Illness Details Trevor is a pleasant male. He is a patient of . He is seen for the following urologic conditions - nephrolithiasis 6 month follow-up with 24 hour urine and imaging Current therapy includes indapamide, allopurinol and potassium citrate Results show good volume, low calcium, high citrate, high sodium, elevated oxalate May decrease potassium citrate to 10 mEq p.o. b.i.d. Has symptomatic renal stones would recommend ESWL Advice given regarding decreased dietary oxalate and decreased dietary sodium Nephrolithiasis Baseline diabetic Multiple prior ESWL for stone removal - last procedure 2018 Imaging - 01/03 renal ultrasound bilateral stones up to 9 mm on each side - 06/05 renal ultrasound 5 mm bilateral - 02/03 renal ultrasound bilateral 5-6 mm - 08/06 renal ultrasound bilateral 5 mm stones Intervention - 04/04 ureteroscopy 24 hour urine - 04/04 high urine calcium - 08/06 good volume, low calcium, low citrate, high sodium, elevated oxalate Medication - vitamin B6 Concomitant medical conditions diabetes, diverticulitis PFSH Medical History Sleep apnea Seasonal allergies Hypercholesterolemia Essential hypertension Diverticulosis large intestine w/o perforation or abscess w/o bleeding Sessile colonic polyp Arthrosis of both acromioclavicular joints Rotator cuff impingement syndrome of right shoulder Rotator cuff impingement syndrome of left shoulder Renal stones Left shoulder pain Class 2 severe obesity with body mass index (BMI) of 35 to 39.9 with serious comorbidity Controlled diabetes mellitus type II without complication Surgical History Hx of lithotripsy Hx of cystoscopy Hx of colonoscopy Hx of arthroscopy of knee Family History Father Bleeding disorder Mother No problems noted. Maternal Aunt Cancer Paternal Uncle Diabetes Mother No problems noted. Father No problems noted. 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 Cognitive needs: No Hearing needs: No Vision needs: Yes (Glasses) Review of Systems Const Denies chills and Denies fever(s) Card Reports no additional complaints and Denies syncope Resp Denies cough GI Denies abdominal pain and Denies heartburn Reports as per HPI and Denies change in libido Neuro Denies syncope Psych Denies change in libido Endo Denies change in libido Physical Exam Const General: cooperative, healthy appearing, comfortable and no acute distress Orientation/consciousness: patient oriented x3 HEENT Face and sinus: Yes normal facial exam Mouth: moist mucous membranes Neck Neck: Yes normal visual inspection, Yes full ROM and Yes trachea midline Chest Chest palpation & inspection: normal inspection of the chest Resp Effort & Inspection: normal respiratory effort, able to speak in complete sentences and no respiratory distress GI Inspection: Yes normal to inspection Back/Spine/Pelvis Cervical Spine: normal cervical lordosis Thoracic/Lumbar Spine: thoracic and lumbar spine normal to inspection Skin General skin exam: no rashes or lesions noted Neuro General: patient oriented x3, gait normal, tone normal and moves all extremities Extrem General: Yes normal to inspection and Yes capillary refill normal Assessment & Plan Assessment & Plan (1) Renal stones: Code(s): N20.0 - Calculus of kidney Plan Extracorporeal Shock Wave Lithotripsy We discussed the nature of the decision and reasonable alternatives for performing the above surgery. Interventions include chemical dissolution, ESWL, ureteroscopy with laser lithotripsy and stent placement, PCNL. Options such as medical therapy were discussed. The relative uncertainties and benefits related to each alternate procedure were adequately discussed. General surgical risks including, but not limited to, pain, bleeding, infection, myocardial infarction, pulmonary embolus, deep vein thrombosis and cerebrovascular accident which may result in further hospitalization were discussed. Full disclosure of the procedure as well as all major risks, benefits and complications were discussed including but not limited to risks of bleeding, injury to the kidney with hematoma or dick-hematoma, failure to fragments stone, potential for ureteric obstruction from stone passage and need for secondary procedures. There is a small long-term risk of hypertension and a question brooks of diabetes. Success rate of fragmentation and passage is approximately 70- 75%. This is compared to the risks and benefits for ureteroscopy which has a higher success rate but is a more invasive procedure. The success rate of the procedure was discussed. Success of the procedure in the short-term does not necessarily guarantee that long-term success will be maintained. Suitable follow up will need to be maintained. The patient showed understanding of the discussion as well as the typical recovery time, and the outpatient nature of this procedure. Opportunity was given for questions. Repeat-back protocol used to confirm understanding. They wish to proceed with right ESWL - will be staged Medications: Changed From potassium citrate ER 20 mEq (2 x 10 mEq (1,080 mg)) PO BID 90 days 360 tabs 1RF N20.0 - Calculus of kidney To potassium citrate ER 10 mEq PO BID 90 days 180 tabs 1RF N20.0 - Calculus of kidney Patient Instructions: Imaging studies, laboratory and physical exam results were discussed and reviewed in detail. No major barriers to patient understanding were identified. An opportunity to ask questions regarding the treatment plan was provided. All questions were answered. The patient expressed understanding and agreement with the above treatment plan. The patient is aware they should contact our office by phone for worsening of their current condition or the appearance of new urologic symptoms. Compliance is encouraged with any medications and followup testing that is ordered. It is a privilege to participate in the urologic care of your patient. If you have any questions or concerns regarding treatment for the above conditions, or other urologic issues, please do not hesitate to contact me. The office telephone contact is [phone]. This note is constructed using voice recognition software. While every effort has been made to ensure accuracy ice rink attendant errors may have been included. Yours sincerely, Dr Torin Logan MD, [facility] - Urology Providers of Expert, Compassionate Care for the Genitourinary System Coding Level of Care Code Est Pt Level 4 (39419) Diagnoses Renal stones N20.0
== END 2023-10-20 11:30 | disposition home or self-care (01) ==
PROVIDERS: PCP Internal Medicine; Visit Provider Urology
DX: N20.0 Calculus of kidney (principal)
CPT/HCPCS: 99214

== ENCOUNTER → 2023-10-20 10:30 | Outpatient (BNVA) | payer OTHER, SELFPAY | PROVIDERS: PCP Internal Medicine; Visit Provider Urology ==

== ENCOUNTER 2023-12-02 07:35 | Day surgery (SDC) | payer OTHER, SELFPAY ==
--- NOTE | 2023-12-01 10:03 | HO.ANESPROP2 ---
Documented by User: Haven Henriquez NP 12/01/23 10:04 HPI - Anesthesia Eval Consult details Narrative: 53yo M for Lithotripsy ESW Anesthesia Pre-Procedure Meds Is the patient on any of the following meds?: Any other SGL-1 drugs or drugs that delay gastric emptying (Januvia) PMFSH Active Problems Active Problems: All Active Problems (Updated 06/18/23 @ 08:51 by Waylon Mcfarland) Tear of right rotator cuff (Acute) AC joint arthropathy (Acute) Superior labrum fumoeqkv-[id number]-zbfazavus (SLAP) tear of right shoulder (Acute) Diverticulosis of colon (Acute) Colon polyps (Acute) Hypercalciuria (Acute) Annual physical exam (Acute) Sessile colonic polyp (Acute) Hypercholesterolemia (Acute) Essential hypertension (Acute) Class 2 severe obesity with body mass index (BMI) of 35 to 39.9 with serious comorbidity (Acute) Rotator cuff impingement syndrome of right shoulder (Acute) Rotator cuff impingement syndrome of left shoulder (Acute) Renal stones (Acute) Controlled diabetes mellitus type II without complication (Acute) Past Medical History Medical History Sleep apnea Seasonal allergies Hypercholesterolemia Essential hypertension Diverticulosis large intestine w/o perforation or abscess w/o bleeding Sessile colonic polyp Arthrosis of both acromioclavicular joints Rotator cuff impingement syndrome of right shoulder Rotator cuff impingement syndrome of left shoulder Renal stones Left shoulder pain Class 2 severe obesity with body mass index (BMI) of 35 to 39.9 with serious comorbidity Controlled diabetes mellitus type II without complication Family History Family History Father Bleeding disorder Mother No problems noted. Maternal Aunt Cancer Paternal Uncle Diabetes Mother No problems noted. Father No problems noted. 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 Cognitive needs: No Hearing needs: No Vision needs: Yes (Glasses) Meds Allergies Allergy/AdvReac Type Severity Reaction Status Date / Time seafood Allergy Intermediate Nausea Verified 12/02/23 08:56 Iodinated Contrast Media AdvReac Severe NAUSEA/VOMITING Verified 12/02/23 08:56 [IV CONTRAST] FROM IV DYE Home Medications Medication Instructions Recorded Confirmed Last Taken Type aspirin 81 mg tablet 81 mg PO DAILY 07/10/20 12/02/23 11/22/23 History fexofenadine 60 mg tablet (Thuy 60 mg PO DAILY 02/25/21 12/02/23 05/13/23 History Allergy) multivitamin 1 tab PO DAILY 12/02/23 12/02/23 Unknown History Exam Narrative Narrative: EKG 04/2023 Vent. Rate : 075 BPM Atrial Rate : 075 BPM P-R Int : 136 ms QRS Dur : 092 ms QT Int : 384 ms P-R-T Axes : 051 -05 019 degrees QTc Int : 428 ms Normal sinus rhythm Normal ECG When compared with ECG of 27-JUL-2019 08:09, No significant change was found Assessment and Plan Assessment Anesthesia Assessment: Chart Reviewed Final Anesthetic Review Family History of Problems with Anesthesia: No History of Problems with Anesthesia: No Documented by User: Giovanna North MD 12/02/23 09:41 HPI - Anesthesia Eval Anesthesia Pre-Procedure Meds If Yes to any meds - educate patient: Pt education - increased risk of aspiration PMFSH Past Medical History Medical History Sleep apnea Seasonal allergies Hypercholesterolemia Essential hypertension Diverticulosis large intestine w/o perforation or abscess w/o bleeding Sessile colonic polyp Arthrosis of both acromioclavicular joints Rotator cuff impingement syndrome of right shoulder Rotator cuff impingement syndrome of left shoulder Renal stones Left shoulder pain Class 2 severe obesity with body mass index (BMI) of 35 to 39.9 with serious comorbidity Controlled diabetes mellitus type II without complication Family History Family History Father Bleeding disorder Mother No problems noted. Maternal Aunt Cancer Paternal Uncle Diabetes Mother No problems noted. Father No problems noted. 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 Cognitive needs: No Hearing needs: No Vision needs: Yes (Glasses) Meds Allergies Allergy/AdvReac Type Severity Reaction Status Date / Time seafood Allergy Intermediate Nausea Verified 12/02/23 08:56 Iodinated Contrast Media AdvReac Severe NAUSEA/VOMITING Verified 12/02/23 08:56 [IV CONTRAST] FROM IV DYE Home Medications Medication Instructions Recorded Confirmed Last Taken Type aspirin 81 mg tablet 81 mg PO DAILY 07/10/20 12/02/23 11/22/23 History fexofenadine 60 mg tablet (Thuy 60 mg PO DAILY 02/25/21 12/02/23 05/13/23 History Allergy) multivitamin 1 tab PO DAILY 12/02/23 12/02/23 Unknown History Exam Airway Mallampati Class: III TM Dist: >3cm Neck ROM: Full Loose/Missing/Broken Teeth: No Heart: RRR Lungs: CTA Assessment and Plan Assessment Anesthesia Assessment: Anesthesia Plan Discussed Final Anesthetic Review NPO: Yes ASA Class: II Final Preanesthetic Review: Meds/Allgs Chart Reviewed, Consent Obtained/Reviewed and Anes Risks/Benef Reviewed Patient Risk: Low Procedure Risk: Low Anesthetic Plan Anesthetic Plan: MAC: Disposition: Standard PACU
--- NOTE | ~2023-12-02 | XR_ITS ---
EXAMINATION: XR ABDOMEN KUB CLINICAL INDICATION: Right renal stone follow-up COMPARISON: Prior ultrasound 08/14/2023 TECHNIQUE: AP view of the abdomen. FINDINGS: Fair amount of stool and gas is seen in the colon which obscures detail. The previously described right lower pole nephrolith is not observed. There may be a very subtle calcification overlying the left lower pole at 3 mm, certainly smaller than that which was seen on the prior ultrasound. No evidence for calcifications along the course of the ureters. Prostate calcifications are observed. XR/XR KUB IMPRESSION: Previously noted nephrolithiasis are less conspicuous. The left lower pole nephrolith is observed but appears smaller.
[2023-12-02 09:20] VITALS: BP 125/81; PULSE 64; RESP 16; TEMP 36.6; O2SAT 96; BMI 35.6
[2023-12-02 09:22] LABS: Glucose, Whole Blood 134 mg/dL (60-115)
[2023-12-02] MEDS: Acetaminophen 1,000 MG/100 ML PIGGYBACK 400 MG IV (09:24)
[2023-12-02] MEDS: Lactated Ringers 1,000 ML 999 ML IV (09:26)
--- NOTE | 2023-12-02 09:34 | MHC.SHP ---
Pre-Procedural Eval Section A - 24 Hr Update-Section A only Date of Service: 12/02/23 The patient is an INPATIENT: No Changes since office visit: No Cold of Flu in the past 2 weeks, No New Medical Problems, No Changes in Medication and No Patient answered all questions The patient has been examined within 24 hours of the surgical procedure. The History & Physical has been completed within 30 days and I have reviewed it.: Yes Section B - Complete if H&P > 30 days Chief Complaint: Calculus of kidney Relevant Social History: None Present Medications: see Short Stay Collaborative assessment Medical History: No relevant PMH History of Previous Operations: No relevant previous surgery Allergies: Allergies Allergy/AdvReac Type Severity Reaction Status Date / Time seafood Allergy Intermediate Nausea Verified 12/02/23 08:56 Iodinated Contrast Media AdvReac Severe NAUSEA/VOMITING Verified 12/02/23 08:56 [IV CONTRAST] FROM IV DYE Review of Systems Sugical H&P ROS: Negative: Constitution, Cardiovascular, Respiratory, Neurological, Psychiatric, Hem-Onc, Allergic/Immunologic, Gastrointestinal, Genitourinary, Musculoskeletal, Integumentary, Endocrine and Eyes/Ears/Nose/Throat Exam Surgical H&P Exam: Normal: HEENT, Normal: Heart, Normal: Lungs, Normal: Extremities, Normal: Abdomen, Normal: Skin and Normal: Neurological Plan Diagnosis/Plan: Unchanged (right ESWL) I have reviewed the history and physical and performed a pertinent physical examination on my patient. No changes have occurred unless specified. Time Spent With Patient Time: Total time managing care of this patient today ____ minutes.
--- NOTE | 2023-12-02 10:26 | W.PM.OPN ---
Operative Note Operative Note Date of Service: 12/02/23 Narrative: PreOperative Diagnosis: right Renal stones Post Operative Diagnosis: right Renal stones Procedure: right ESWL Surgeon: Dr Torin Logan Anesthesia: mac/sedation Indications for procedure: The patient understands ESWL may be a staged procedure and subsequent intervention may be required based on imaging after ESWL. Quoted stone clearance rates for a solitary procedure are in the 70-80% range based primarily on stone location. They also understand there is a risk of bleeding to the kidney, infection, damage to adjacent organs, and stone migration following the procedure. - Imaging right 6mm lower pole Procedure: After informed consent was verified the patient was brought to the operating room and placed in a supine position. Anesthesia was performed per protocol. Safety pause time-out was performed. Imaging was displayed in the room and laterality confirmed. ESWL was performed. The 1st 500 shocks were performed at 60 hertz. These were performed with increasing power. Once maximum power was reached the rate was increased to 180 hertz. A total of 2500 shocks were given. Targeted imaging with ultrasound/fluoroscopy showed stone smudging suggestive of disintegration. The patient tolerated the procedure well and was transferred to the recovery area upon completion. Post procedure imaging will be organized. There was no evidence for flank discoloration.
[2023-12-02 10:55] VITALS: BP 117/69; PULSE 75; RESP 18; TEMP 37.1; O2SAT 99
[2023-12-02 11:10] VITALS: BP 106/57; PULSE 65; RESP 18; O2SAT 99
[2023-12-02] MEDS: Phenazopyridine HCL 100 MG TABLET PO (11:14)
[2023-12-02] MEDS: Ketorolac Tromethamine 15 MG/ML VIAL IVPUSH (11:15)
[2023-12-02 11:25] VITALS: BP 121/88; PULSE 68; RESP 16; TEMP 36.8; O2SAT 98
== END 2023-12-02 12:00 | disposition home or self-care (01) ==
PROVIDERS: PCP Internal Medicine; Visit Provider Urology
PROC: (CPT 50590; principal; 2023-12-02 10:00)
DX: N20.0 Calculus of kidney (principal); Z87.442 Personal history of urinary calculi; I10 Essential (primary) hypertension; E66.01 Morbid (severe) obesity due to excess calories; E11.9 Type 2 diabetes mellitus without complications; Z79.84 Long term (current) use of oral hypoglycemic drugs; Z79.82 Long term (current) use of aspirin; Z79.899 Other long term (current) drug therapy; Z91.041 Radiographic dye allergy status; Z87.891 Personal history of nicotine dependence
CPT/HCPCS: 50590; 74018; 82947; J0131; J1885; J1940; J2250; J2704; J3010

== ENCOUNTER → 2023-12-02 07:35 | Outpatient (BNV) | payer OTHER, SELFPAY | PROVIDERS: PCP Internal Medicine; Visit Provider Urology | DX: N20.0 Calculus of kidney (principal) | CPT/HCPCS: 50590 ==

== ENCOUNTER 2023-12-24 14:41 | Outpatient (AMB) | payer OTHER, SELFPAY ==
--- NOTE | 2023-12-24 15:14 | MHC.PC.OV ---
Vital Signs 12/24/23 15:16 Height 5 ft 8 in Weight 239 lb BMI 36.3 BP 100/70 Blood Pressure Location Lt brachial Position Sitting Pulse 72 Pulse Source Pulse Oximeter Pulse Oximetry (%) 97 Oxygen Delivery Method Room Air Intake Visit Reasons: 6 month f/u DM Intake Note: Patient is here to follow up on DM, HTN, Hypercholesterolemia. Primary Counselor Required: No Leave Coordinator: Not Required per policy Accompanied by: Self / Same As Patient Allergies seafood Allergy (Intermediate, Verified 12/26/23 16:57) Nausea Iodinated Contrast Media [IV CONTRAST] Adverse Reaction (Severe, Verified 12/26/23 16:57) NAUSEA/VOMITING FROM IV DYE Medication List - Last Reconciled 12/26/23 by Emilio Garcia MD allopurinol 100 mg PO DAILY 90 days aspirin 81 mg PO DAILY blood sugar diagnostic (FreeStyle Test strips) USE DIRECTED 3 TIMES A DAY fexofenadine (Thuy Allergy) 60 mg PO DAILY indapamide 2.5 mg PO DAILY 90 days lancets test 3 times per day lancets As directed lisinopril 10 mg PO DAILY metformin 1,000 mg PO BID multivitamin 1 tab PO DAILY potassium citrate ER 10 mEq PO BID 90 days simvastatin 10 mg PO DAILY sitagliptin phosphate (Januvia) 50 mg PO DAILY tamsulosin 0.4 mg PO BEDTIME 30 days Tobacco use date assessed: 12/24/23 Dental Screening Dental Screen Date: 12/24/23 Did you have a dental visit in the last 12 months?: Yes Did you have a dental problem in the last 6 months where you did not have access to dental care?: No Was dental information given to patient?: Patient has dentist HPI 6 month f/u DM HPI Details 53-year-old male presents to the office to discuss his chronic medical conditions. Patient is compliant with all medications and reporting no side effects. Able to function and do all activities of daily living. Checks his blood sugars 1 to 2 times a week. They are in range. Compliant with diet. [facility] Medical History Sleep apnea Seasonal allergies Hypercholesterolemia Essential hypertension Diverticulosis large intestine w/o perforation or abscess w/o bleeding Sessile colonic polyp Arthrosis of both acromioclavicular joints Rotator cuff impingement syndrome of right shoulder Rotator cuff impingement syndrome of left shoulder Renal stones Left shoulder pain Class 2 severe obesity with body mass index (BMI) of 35 to 39.9 with serious comorbidity Controlled diabetes mellitus type II without complication Surgical History Hx of shoulder surgery Hx of lithotripsy Hx of cystoscopy Hx of colonoscopy Hx of arthroscopy of knee Family History Father Bleeding disorder Mother No problems noted. Maternal Aunt Cancer Paternal Uncle Diabetes Mother No problems noted. Father No problems noted. 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 1. Little interest or pleasure in doing things: not at all 2. Feeling down, depressed, or hopeless: not at all 3. Trouble falling or staying asleep, or sleeping too much: not at all 4. Feeling tired or having little energy: not at all 5. Poor appetite or overeating: not at all 6. Feeling bad about yourself - or that you are a failure or have let yourself or your family down: not at all 7. Trouble concentrating on things, such as reading the newspaper or watching television: not at all 8. Moving or speaking so slowly that other people could have noticed. Or the opposite - being so fidgety or restless that you have been moving around a lot more than usual: not at all 9. Thoughts that you would be better off or of hurting yourself in some way: not at all Total score: 0 Depression Screening Interpretation: Negative Depression Screening Done: Yes Source: Developed by Drs. Kelton Delaney, Marija B.Deepak Bertrand and colleagues, with an educational blaze from [employer]. Thrive Questionnaire Date Thrive assessed: 12/24/23 I am a: Patient What is your living situation today?: I have a steady place to live Within the past 12 months, did the food you bought not last and you didn't have the money to get more?: Never true Within the past 12 months, did you worry whether your food would run out before you got money to buy more?: Never true Do you have trouble paying for medicines?: No Do you have trouble getting transportation to medical appointments?: No Do you have trouble paying your heating and electricity bill?: No Do you have trouble taking care of your child, family member or friend?: No Do you have trouble with day-to-day activities such as bathing, preparing meals, shopping, managing finances, etc.?: No Are you currently unemployed and looking for a job?: No Are you interested in more education?: No Currently or been in a relationship where the following occur: no concerns reported THRIVE Score: 0 AUDIT C Alcohol Use Questionnaire (AUDIT-C) 1. How often do you have a drink containing alcohol?: Never Total Score: 0 EDE-7 AMB Questionnaire EDE-7 Date EDE - 7 assessed: 12/24/23 Feeling nervous, anxious, or on edge: 0 = Not at all Not being able to stop or control worryin = Not at all Worrying too much about different things: 0 = Not at all Trouble relaxin = Not at all Being so restless that it is hard to sit still: 0 = Not at all Becoming easily annoyed or irritable: 0 = Not at all Feeling afraid as if something awful might happen: 0 = Not at all Total EDE-7 score (0-4 normal; 5-9 mild; 10-14 moderate; 15-21 severe): 0 Source: Developed by Drs. Kelton Delaney, Deepak Hinson and colleagues, with an educational blaze from [employer]. Physical exam (Primary Care) Vital Signs: Last Vital Signs Pulse 72 12/24/23 15:16 BP 100/70 12/24/23 15:16 Pulse Ox 97 12/24/23 15:16 Oxygen Delivery Method Room Air 12/24/23 15:16 Care Plan Goal for BP management: Blood pressure is in range. BMI result Body Mass Index 36.3 BMI Assessment/Plan discussion: High (1 lb per week weight loss suggested.) BMI High, discussed plan: lifestyle, weight reduction, dietary and physical activity Tobacco/Smoking Status: Tobacco use Status Tobacco use date assessed 12/24/23 12/24/23 15:23 Patient Tobacco Use Status Former Tobacco user 12/24/23 15:23 Tobacco use type Cigar 12/24/23 15:23 e-Cigarette/Vaping Use Never Used 12/24/23 15:23 PHQ-9: PHQ-9 Score PHQ-9: Total score 0 12/25/23 11:00 Depression Screening Interpretation: Negative Thrive Assessment: Date of Thrive Assessment Date Thrive assessed 12/24/23 12/24/23 15:23 Currently or been in a relationship where the following occur: no concerns reported Const General: cooperative and healthy appearing Nutritional Appearance: well nourished Orientation/consciousness: patient oriented x3 Limitations: no limitations HENMT Head: Yes normal to inspection Eyes General: appearance normal, both eyes and all related structures Neck Neck: Yes normal visual inspection Chest Chest palpation & inspection: normal palpation of entire chest wall Resp Effort & Inspection: normal respiratory effort Neuro General: patient oriented x3 Results AMB Hemoglobin A1c AMB Hemoglobin A1c 6.5 % Last Edit by KOBI Vasquez on 12/24/23 15:31 Results Reviewed Results Reviewed: Laboratory Last Values Hgb A1c (Clinic) 6.5 % (4.0-6.0) H 12/24/23 15:12 Assessment and Plan Assessment & Plan (1) Controlled diabetes mellitus type II without complication: Code(s): E11.9 - Type 2 diabetes mellitus without complications Plan: A1c is 6.5. Blood sugars are well controlled. Continue medications at same dosage. (2) Hypercholesterolemia: Code(s): E78.00 - Pure hypercholesterolemia, unspecified Plan: Blood work has been ordered. Encouraged patient to continue statins. (3) Class 2 severe obesity with body mass index (BMI) of 35 to 39.9 with serious comorbidity: Code(s): E66.01 - Morbid (severe) obesity due to excess calories Plan: Counseling on the importance of diet and exercise done. Patient was advised a low-carbohydrate diet. (4) Essential hypertension: Code(s): I10 - Essential (primary) hypertension Plan: Blood pressure is in range. Continue current medications. Orders: Orders Lipid Panel 12/24/23 E11.9 - Type 2 diabetes mellitus without complications Thyroid Stimulating Hormone 12/24/23 E11.9 - Type 2 diabetes mellitus without complications Microalbumin, Random (w Creat) 12/24/23 E11.9 - Type 2 diabetes mellitus without complications UA and rflx microscopic 12/24/23 E11.9 - Type 2 diabetes mellitus without complications AMB Hemoglobin A1c 12/24/23 E11.9 - Type 2 diabetes mellitus without complications Basic Metabolic Panel 12/24/23 E11.9 - Type 2 diabetes mellitus without complications Complete Blood Count no Diff 12/24/23 E11.9 - Type 2 diabetes mellitus without complications Liver Panel 12/24/23 E11.9 - Type 2 diabetes mellitus without complications Coding Level of Care Code Est Pt Level 4 (68653) Diagnoses Controlled diabetes mellitus type II without complication E11.9 Hypercholesterolemia E78.00 Class 2 severe obesity with body mass index (BMI) of 35 to 39.9 with serious comorbidity E66.01 Essential hypertension I10
[2023-12-24 15:16] VITALS: BP 100/70; PULSE 72; O2SAT 97; BMI 36.3
== END 2023-12-24 15:34 | disposition home or self-care (01) ==
PROVIDERS: PCP Internal Medicine; Visit Provider Internal Medicine
DX: E11.9 Type 2 diabetes mellitus without complications (principal)
CPT/HCPCS: 83036; 99214

== ENCOUNTER 2023-12-29 06:15 | Outpatient (REF) | payer OTHER, SELFPAY ==
[2023-12-29 07:48] LABS: Appearance Urine Clear; Color Urine Yellow; Glucose Urine UA Negative (Negative); Leukocyte Esterase Urine Negative (Negative); Nitrite Urine Negative (Negative); Urine Blood Negative (Negative); Urine Ketones Negative (Negative); Urine Protein Negative (Neg-Trace)
[2023-12-29 08:16] LABS: Creatinine Urine 194.94 mg/dL; Microalbum/Creatinine Ratio Ur 5.1 ug/mg cr (<30)
[2023-12-29 08:33] LABS: Alanine Aminotransferase 52 U/L (0-40); Alkaline Phosphatase 50 U/L (39-117); Anion Gap 13 (12-20); Aspartate Amino Transferase 43 U/L (5-37); Bilirubin Direct 0.1 mg/dL (0.0-0.5); Bilirubin Total 0.5 mg/dL (0.0-1.0); Blood Urea Nitrogen 12 mg/dL (9-16); Calcium 9.5 mg/dL (8.4-10.2); Carbon Dioxide 25 mmol/L (22-29); Chloride 103 mmol/L (96-108); Cholesterol 131 mg/dL (<200); Estimated Glomerular Filt Rate > 60; Glucose Random 121 mg/dL (60-115); HDL Cholesterol 34 mg/dL (>40); LDL Cholesterol Calculated 69 mg/dL (<100); Potassium 4.6 mmol/L (3.3-5.1); Sodium 136 mmol/L (135-145); Total Protein 7.7 g/dL (6.5-8.0); Triglycerides 141 mg/dL (<150)
[2023-12-29 08:44] LABS: Thyroid Stimulating Hormone 0.82 uIU/mL (0.32-4.0)
== END 2023-12-29 06:16 | disposition home or self-care (01) ==
LOC: HO.LAB 06:15
PROVIDERS: PCP Internal Medicine; Visit Provider Internal Medicine
DX: E11.9 Type 2 diabetes mellitus without complications (principal)
CPT/HCPCS: 36415; 80048; 80061; 80076; 81003; 82043; 82570; 84443; 85027

== ENCOUNTER 2023-12-30 07:34 | Day surgery (SDC) | payer OTHER, SELFPAY ==
[2023-12-25 09:48] VITALS: BMI 36.3
--- NOTE | ~2023-12-30 | XR_ITS ---
EXAMINATION: XR ABDOMEN KUB CLINICAL INDICATION: Left kidney stones COMPARISON: 12/02/2023 and 06/17/2017 KUB, 08/14/2023 renal ultrasound TECHNIQUE: AP view of the abdomen. FINDINGS: Tiny calcification overlying the left renal lower pole is unchanged from 12/02/2023. No additional renal calculi are identified. Nonobstructive bowel pattern. Rounded soft tissue density in the left upper quadrant is unchanged dating back to 2016, likely related to superimposition of normal structures XR/XR KUB IMPRESSION: No change tiny nonobstructing left lower pole renal calculus.
[2023-12-30 08:34] VITALS: BMI 37.3
[2023-12-30 08:39] VITALS: BP 142/92; PULSE 68; RESP 16; TEMP 36.7; O2SAT 97
--- NOTE | 2023-12-30 08:43 | P.CONAN_ITS ---
[facility] Active Problems Active Problems: All Active Problems Tear of right rotator cuff (Acute) AC joint arthropathy (Acute) Superior labrum [id number] (SLAP) tear of right shoulder (Acute) Diverticulosis of colon (Acute) Colon polyps (Acute) Hypercalciuria (Acute) Annual physical exam (Acute) Sessile colonic polyp (Acute) Hypercholesterolemia (Acute) Essential hypertension (Acute) Class 2 severe obesity with body mass index (BMI) of 35 to 39.9 with serious comorbidity (Acute) Rotator cuff impingement syndrome of right shoulder (Acute) Rotator cuff impingement syndrome of left shoulder (Acute) Renal stones (Acute) Controlled diabetes mellitus type II without complication (Acute) Past Medical History Medical History Sleep apnea Seasonal allergies Hypercholesterolemia Essential hypertension Diverticulosis large intestine w/o perforation or abscess w/o bleeding Sessile colonic polyp Arthrosis of both acromioclavicular joints Rotator cuff impingement syndrome of right shoulder Rotator cuff impingement syndrome of left shoulder Renal stones Left shoulder pain Class 2 severe obesity with body mass index (BMI) of 35 to 39.9 with serious comorbidity Controlled diabetes mellitus type II without complication Family History Family History Father Bleeding disorder Mother No problems noted. Maternal Aunt Cancer Paternal Uncle Diabetes Mother No problems noted. Father No problems noted. Family history of problems with anesthesia: No Surgical History Surgical History Hx of shoulder surgery Hx of lithotripsy Hx of cystoscopy Hx of colonoscopy Hx of arthroscopy of knee History of Problems with Anesthesia: No Social History Social History Household Members Other:: 1 son Housing: House Alcohol intake: current Alcohol intake frequency: does not drink Patient Tobacco Use Status: Former Tobacco user Quit Date: 20 yrs ago Tobacco use type: Cigar e-Cigarette/Vaping Use: Never Used Second Hand Smoke Exposure: No Use of substances other than those prescribed or required for medical reasons: No Are you DNR?: No Advance Directives: No Advance Directives Information Provided: Yes service: No Current occupational status: employed 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 Cognitive needs: No Hearing needs: No Vision needs: Yes (Glasses) Meds Allergies Allergy/AdvReac Type Severity Reaction Status Date / Time seafood Allergy Intermediate Nausea Verified 12/26/23 16:57 Iodinated Contrast Media AdvReac Severe NAUSEA/VOMITING Verified 12/26/23 16:57 [IV CONTRAST] FROM IV DYE Home Medications ?Medication ?Instructions ?Recorded ?Confirmed ?Last Taken ?Type aspirin 81 mg tablet 81 mg PO DAILY 07/10/20 12/26/23 11/22/23 History fexofenadine 60 mg tablet (Thuy 60 mg PO DAILY 02/25/21 12/26/23 05/13/23 History Allergy) multivitamin 1 tab PO DAILY 12/02/23 12/26/23 Unknown History Exam Height,Weight and Vital Signs: Height 5 ft 8 in Weight 111.221 kg Last Vital Signs Temp 98.0 F 12/30/23 08:39 Pulse 68 12/30/23 08:39 Resp 16 12/30/23 08:39 BP 142/92 H 12/30/23 08:39 Pulse Ox 97 12/30/23 08:39 O2 Del Method Room Air 12/30/23 08:39 Airway Mallampati Class: III TM Dist: <=3cm Neck ROM: Full Loose/Missing/Broken Teeth: No Heart: rrr Lungs: cta Assessment and Plan Assessment Anesthesia Assessment: Anesthesia Plan Discussed and Chart Reviewed Final Anesthetic Review Family History of Problems with Anesthesia: No History of Problems with Anesthesia: No NPO: Yes ASA Class: III Final Preanesthetic Review: No Changes in Pt Med Stat, Consent Obtained/Reviewed and Anes Risks/Benef Reviewed Patient Risk: Intermediate Procedure Risk: Intermediate Anesthetic Plan Anesthetic Plan: MAC: Disposition: Standard PACU
[2023-12-30 08:47] LABS: Glucose, Whole Blood 128 mg/dL (60-115)
--- NOTE | 2023-12-30 08:54 | MHC.SHP ---
Pre-Procedural Eval Section A - 24 Hr Update-Section A only Date of Service: 12/30/23 The patient is an INPATIENT: No Changes since office visit: No Cold of Flu in the past 2 weeks, No New Medical Problems, No Changes in Medication and No Patient answered all questions The patient has been examined within 24 hours of the surgical procedure. The History & Physical has been completed within 30 days and I have reviewed it.: No Section B - Complete if H&P > 30 days Chief Complaint: Calculus of kidney Details of Present Illness: Left side completed already, had to complete right side lower pole Relevant Family History (Specify if Yes): No Relevant Social History: None Present Medications: see Short Stay Collaborative assessment Medical History: No relevant PMH History of Previous Operations: Relevant previous surgery/procedure and date(s) Allergies: Allergies Allergy/AdvReac Type Severity Reaction Status Date / Time seafood Allergy Intermediate Nausea Verified 12/26/23 16:57 Iodinated Contrast Media AdvReac Severe NAUSEA/VOMITING Verified 12/26/23 16:57 [IV CONTRAST] FROM IV DYE Review of Systems Sugical H&P ROS: Negative: Constitution, Cardiovascular, Respiratory, Neurological, Psychiatric, Hem-Onc, Allergic/Immunologic, Gastrointestinal, Genitourinary, Musculoskeletal, Integumentary, Endocrine and Eyes/Ears/Nose/Throat Exam Surgical H&P Exam: Normal: HEENT, Normal: Heart, Normal: Lungs, Normal: Extremities, Normal: Abdomen, Normal: Skin and Normal: Neurological Plan Diagnosis/Plan: Unchanged (Right side lower pole ESWL) I have reviewed the history and physical and performed a pertinent physical examination on my patient. No changes have occurred unless specified. Time Spent With Patient Time: Total time managing care of this patient today ____ minutes.
--- NOTE | 2023-12-30 09:26 | W.PM.OPN ---
Operative Note Operative Note Date of Service: 12/30/23 Narrative: PreOperative Diagnosis: left Renal stones Post Operative Diagnosis: left Renal stones Procedure: left ESWL Surgeon: Dr Torin Logan Anesthesia: mac/sedation Indications for procedure: The patient understands ESWL may be a staged procedure and subsequent intervention may be required based on imaging after ESWL. Quoted stone clearance rates for a solitary procedure are in the 70-80% range based primarily on stone location. They also understand there is a risk of bleeding to the kidney, infection, damage to adjacent organs, and stone migration following the procedure. - Imaging 11mm left lower pole Procedure: After informed consent was verified the patient was brought to the operating room and placed in a supine position. Anesthesia was performed per protocol. Safety pause time-out was performed. Imaging was displayed in the room and laterality confirmed. ESWL was performed. The 1st 500 shocks were performed at 60 hertz. These were performed with increasing power. Once maximum power was reached the rate was increased to 180 hertz. A total of 2500 shocks were given. Targeted imaging with ultrasound/fluoroscopy showed stone smudging suggestive of disintegration. The patient tolerated the procedure well and was transferred to the recovery area upon completion. Post procedure imaging will be organized. There was no evidence for flank discoloration.
[2023-12-30 09:43] VITALS: BP 114/72; PULSE 80; RESP 16; TEMP 36.1; O2SAT 99
[2023-12-30 09:50] VITALS: BP 119/79; PULSE 67; RESP 16; O2SAT 98
[2023-12-30 10:05] VITALS: BP 107/70; PULSE 70; RESP 14; TEMP 36.2; O2SAT 98
== END 2023-12-30 11:28 | disposition home or self-care (01) ==
PROVIDERS: PCP Internal Medicine; Visit Provider Urology
PROC: (CPT 50590; principal; 2023-12-30 09:30)
DX: N20.0 Calculus of kidney (principal); I10 Essential (primary) hypertension; E11.9 Type 2 diabetes mellitus without complications
CPT/HCPCS: 50590; 74018; 82947; J0131; J2250; J2405; J2704; J3010

== ENCOUNTER → 2023-12-30 07:34 | Outpatient (BNV) | payer OTHER, SELFPAY | PROVIDERS: PCP Internal Medicine; Visit Provider Urology | DX: N20.0 Calculus of kidney (principal) | CPT/HCPCS: 50590 ==

== ENCOUNTER 2024-01-29 12:46 | Outpatient (REF) | payer OTHER, SELFPAY ==
--- NOTE | ~2024-01-29 | US_ITS ---
EXAMINATION: US RETROPERITONEAL LIMITED (RENAL ONLY) CLINICAL INFORMATION: Calculus of kidney. COMPARISON: X-ray KUB 12/30/2023 and 12/02/2023. Ultrasound renal 08/14/2023 and 02/04/2023. TECHNIQUE: Real-time imaging of the kidneys. FINDINGS: RIGHT KIDNEY: 13.3 x 5.8 x 6.5 cm (SAG x AP x TRV). The kidney is normal in size, contour, and echogenicity. Renal cortical thickness is normal. No calculi or focal parenchymal lesions. No hydronephrosis. LEFT KIDNEY: 12.2 x 6.1 x 6.6 cm (SAG x AP x TRV). The kidney is normal in size, contour, and echogenicity. Renal cortical thickness is normal. No focal parenchymal lesions or hydronephrosis. 5 mm nonobstructing calculus in the lower pole. 5 mm nonobstructing calculus in the lower pole. US/US renal BI IMPRESSION: Nonobstructing calculi in the lower left kidney. No hydronephrosis.
== END 2024-01-29 12:47 | disposition home or self-care (01) ==
LOC: HO.US 12:46
PROVIDERS: PCP Internal Medicine; Visit Provider Urology
DX: N20.0 Calculus of kidney (principal)
CPT/HCPCS: 76775

== ENCOUNTER 2024-02-12 15:31 | Outpatient (AMB) | payer OTHER, SELFPAY ==
--- NOTE | 2024-02-12 15:50 | MHC.OFFVIS ---
Intake Visit Reasons: ESWL follow up/US Intake Note: Patient is Present for Follow Up Urology Medication: Tamsulosin Antibiotic Allergies: None Blood Thinners:aspirin Allergies seafood Allergy (Intermediate, Verified 04/05/24 08:53) Nausea Iodinated Contrast Media [IV CONTRAST] Adverse Reaction (Severe, Verified 04/05/24 08:53) NAUSEA/VOMITING FROM IV DYE Medication List - Last Reconciled 02/12/24 by Torin Logan MD allopurinol 100 mg PO DAILY 90 days aspirin 81 mg PO DAILY blood sugar diagnostic (FreeStyle Test strips) USE DIRECTED 3 TIMES A DAY fexofenadine (Thuy Allergy) 60 mg PO DAILY indapamide 2.5 mg PO DAILY 90 days lancets test 3 times per day lancets As directed lisinopril 10 mg PO DAILY metformin 1,000 mg PO BID multivitamin 1 tab PO DAILY naproxen 500 mg PO BID PRN 7 days oxycodone-acetaminophen 5-325 mg 1 tab PO Q4H PRN 7 days phenazopyridine (Pyridium) 100 mg PO TID PRN 4 days potassium citrate ER 10 mEq PO BID 90 days simvastatin 10 mg PO DAILY sitagliptin phosphate (Januvia) 50 mg PO DAILY tamsulosin 0.4 mg PO BEDTIME 30 days tamsulosin 0.4 mg PO BEDTIME 14 days HPI Comments Details: Trevor is a pleasant male. He is a patient of . He is seen for the following urologic conditions - nephrolithiasis Follow-up from ESWL Small stones seen left side Symptoms improved Current therapy includes indapamide, allopurinol and potassium citrate Results show good volume, low calcium, high citrate, high sodium, elevated oxalate May decrease potassium citrate to 10 mEq p.o. b.i.d. Advice given regarding decreased dietary oxalate and decreased dietary sodium Nephrolithiasis Baseline diabetic Multiple prior ESWL for stone removal - last procedure 2018 Imaging - 01/03 renal ultrasound bilateral stones up to 9 mm on each side - 06/05 renal ultrasound 5 mm bilateral - 02/03 renal ultrasound bilateral 5-6 mm - 08/06 renal ultrasound bilateral 5 mm stones - 02/04 renal ultrasound 5 mm left Intervention - 04/04 ureteroscopy 24 hour urine - 04/04 high urine calcium - 08/06 good volume, low calcium, low citrate, high sodium, elevated oxalate Medication - vitamin B6 Concomitant medical conditions diabetes, diverticulitis PFSH Medical History (Updated 04/05/24 @ 08:58 by Emilio Garcia MD) Myalgia Sleep apnea Seasonal allergies Hypercholesterolemia Essential hypertension Diverticulosis large intestine w/o perforation or abscess w/o bleeding Sessile colonic polyp Arthrosis of both acromioclavicular joints Rotator cuff impingement syndrome of right shoulder Rotator cuff impingement syndrome of left shoulder Renal stones Left shoulder pain Class 2 severe obesity with body mass index (BMI) of 35 to 39.9 with serious comorbidity Controlled diabetes mellitus type II without complication Surgical History Hx of shoulder surgery Hx of lithotripsy Hx of cystoscopy Hx of colonoscopy Hx of arthroscopy of knee Family History Father Bleeding disorder Mother No problems noted. Maternal Aunt Cancer Paternal Uncle Diabetes Mother No problems noted. Father No problems noted. 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 Cognitive needs: No Hearing needs: No Vision needs: Yes (Glasses) Review of Systems Const Denies chills and Denies fever(s) Card Reports no additional complaints and Denies syncope Resp Denies cough GI Denies abdominal pain and Denies heartburn Reports as per HPI and Denies change in libido Neuro Denies syncope Psych Denies change in libido Endo Denies change in libido Physical Exam Const General: cooperative, healthy appearing, comfortable and no acute distress Orientation/consciousness: patient oriented x3 HEENT Face and sinus: Yes normal facial exam Mouth: moist mucous membranes Neck Neck: Yes normal visual inspection, Yes full ROM and Yes trachea midline Chest Chest palpation & inspection: normal inspection of the chest Resp Effort & Inspection: normal respiratory effort, able to speak in complete sentences and no respiratory distress GI Inspection: Yes normal to inspection Back/Spine/Pelvis Cervical Spine: normal cervical lordosis Thoracic/Lumbar Spine: thoracic and lumbar spine normal to inspection Skin General skin exam: no rashes or lesions noted Neuro General: patient oriented x3, gait normal, tone normal and moves all extremities Extrem General: Yes normal to inspection and Yes capillary refill normal Assessment & Plan Assessment & Plan (1) Renal stones: Code(s): N20.0 - Calculus of kidney Category: Medical Plan Six-month follow-up Orders: Orders US renal BI 6 Months R82.994 - Hypercalciuria Patient Instructions: Imaging studies, laboratory and physical exam results were discussed and reviewed in detail. No major barriers to patient understanding were identified. An opportunity to ask questions regarding the treatment plan was provided. All questions were answered. The patient expressed understanding and agreement with the above treatment plan. The patient is aware they should contact our office by phone for worsening of their current condition or the appearance of new urologic symptoms. Compliance is encouraged with any medications and followup testing that is ordered. It is a privilege to participate in the urologic care of your patient. If you have any questions or concerns regarding treatment for the above conditions, or other urologic issues, please do not hesitate to contact me. The office telephone contact is [phone]. This note is constructed using voice recognition software. While every effort has been made to ensure accuracy director community organization errors may have been included. Yours sincerely, Dr Torin Logan MD, [facility] - Urology Providers of Expert, Compassionate Care for the Genitourinary System Coding Level of Care Code Est Pt Level 3 (90015) Diagnoses Renal stones N20.0
== END 2024-02-12 16:18 | disposition home or self-care (01) ==
PROVIDERS: PCP Internal Medicine; Visit Provider Urology
DX: N20.0 Calculus of kidney (principal)
CPT/HCPCS: 99024

== ENCOUNTER → 2024-02-12 15:31 | Outpatient (BNVA) | payer OTHER, SELFPAY | PROVIDERS: PCP Internal Medicine; Visit Provider Urology ==

== ENCOUNTER 2024-04-05 08:12 | Outpatient (AMB) | payer OTHER, SELFPAY ==
--- NOTE | 2024-04-05 08:21 | A.OFFPC_ITS ---
Vital Signs 04/05/24 08:22 Height 5 ft 8 in Weight 239 lb 4 oz BMI 36.4 BP 100/76 Blood Pressure Location Lt brachial Position Sitting Pulse 71 Pulse Source Pulse Oximeter Pulse Oximetry (%) 97 Oxygen Delivery Method Room Air Intake Visit Reasons: Cramps on Legs Intake Note: Patient is here to follow up on cramps and pain in both legs, numbness in the left leg ongoing for three months. Nanotechnologist Required: No Oyster Bed Worker: Not Required per policy Accompanied by: Self / Same As Patient Allergies seafood Allergy (Intermediate, Verified 04/05/24 08:53) Nausea Iodinated Contrast Media [IV CONTRAST] Adverse Reaction (Severe, Verified 04/05/24 08:53) NAUSEA/VOMITING FROM IV DYE Medication List - Last Reconciled 04/05/24 by Emilio Garcia MD allopurinol 100 mg PO DAILY 90 days aspirin 81 mg PO DAILY blood sugar diagnostic (FreeStyle Test strips) USE DIRECTED 2 TIMES A DAY fexofenadine (Thuy Allergy) 60 mg PO DAILY indapamide 2.5 mg PO DAILY 90 days lancets test 2 times per day lancets As directed lisinopril 10 mg PO DAILY metformin 1,000 mg PO BID multivitamin 1 tab PO DAILY naproxen 500 mg PO BID PRN 7 days potassium citrate ER 10 mEq PO BID 90 days simvastatin 10 mg PO DAILY sitagliptin phosphate (Januvia) 50 mg PO DAILY Tobacco use date assessed: 04/05/24 Dental Screening Dental Screen Date: 12/24/23 HPI Cramps on Legs HPI Details 53-year-old male presents to the office to discuss his chronic medical conditions. Patient is complaining of cramps in both lower extremity for the past 3 months. He describes a multitude of symptoms that include pain in the legs, numbness behind the calf and stiffness in the legs. He was able to bike 45 minutes at a time. He is no longer able to do it due to the symptoms. He was walking 10- [id number] steps a day prior to the onset of these symptoms. He no longer is able to walk for exercise. He reports that symptoms come on while he is walking which makes him stopped for a few minutes. No history of fall or injury. Compliant with all medications and blood sugars have been consistently below 130. [facility] Medical History (Updated 04/05/24 @ 08:58 by Emilio Garcia MD) Myalgia Sleep apnea Seasonal allergies Hypercholesterolemia Essential hypertension Diverticulosis large intestine w/o perforation or abscess w/o bleeding Sessile colonic polyp Arthrosis of both acromioclavicular joints Rotator cuff impingement syndrome of right shoulder Rotator cuff impingement syndrome of left shoulder Renal stones Left shoulder pain Class 2 severe obesity with body mass index (BMI) of 35 to 39.9 with serious co morbidity Controlled diabetes mellitus type II without complication Surgical History Hx of shoulder surgery Hx of lithotripsy Hx of cystoscopy Hx of colonoscopy Hx of arthroscopy of knee Family History Father Bleeding disorder Mother No problems noted. Maternal Aunt Cancer Paternal Uncle Diabetes Mother No problems noted. Father No problems noted. 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 Kelton Delaney, Marija Arnold, Deepak Harmon and colleagues, with an educational blaze from [employer]. Physical exam (Primary Care) Vital Signs: Last Vital Signs Pulse 71 04/05/24 08:22 BP 100/76 04/05/24 08:22 Pulse Ox 97 04/05/24 08:22 Oxygen Delivery Method Room Air 04/05/24 08:22 BMI result Body Mass Index 36.4 Tobacco/Smoking Status: Tobacco use Status Tobacco use date assessed 04/05/24 04/05/24 08:30 Patient Tobacco Use Status Former Tobacco user 04/05/24 08:30 Tobacco use type Cigar 04/05/24 08:30 e-Cigarette/Vaping Use Never Used 04/05/24 08:30 Thrive Assessment: Date of Thrive Assessment Date Thrive assessed 12/24/23 04/05/24 08:30 Const General: cooperative and healthy appearing Nutritional Appearance: well nourished Orientation/consciousness: patient oriented x3 Limitations: no limitations HENMT Head: Yes normal to inspection Eyes General: appearance normal, both eyes and all related structures Neck Neck: Yes normal visual inspection Chest Chest palpation & inspection: normal palpation of entire chest wall Resp Effort & Inspection: normal respiratory effort Neuro Other: A detailed neurological exam was done. Lower extremity: Motor strength: 4/5 in both extremities. No evidence of muscle wasting. Full range of motion at both knees with minimal discomfort. No muscle tenderness on palpation. Vibratory sense and sensory exam of the foot is intact. Right knee reflexes diminished compared to the left. General: patient oriented x3 Results AMB Hemoglobin A1c AMB Hemoglobin A1c 6.6 % Last Edit by KOBI Vasquez on 04/05/24 08:51 Assessment and Plan Assessment & Plan (1) Controlled diabetes mellitus type II without complication: Code(s): E11.9 - Type 2 diabetes mellitus without complications Plan: Blood work has been drawn. Will call with the results. Continue medications at same dosage. (2) Class 2 severe obesity with body mass index (BMI) of 35 to 39.9 with serious comorbidity: Code(s): E66.01 - Morbid (severe) obesity due to excess calories Plan: Counseling on the importance of diet and exercise done. (3) Essential hypertension: Code(s): I10 - Essential (primary) hypertension Plan: Blood pressure is in range. Continue medications at same dosage. (4) Hypercholesterolemia: Code(s): E78.00 - Pure hypercholesterolemia, unspecified Plan: Blood work has been drawn. Will call with the results. (5) Myalgia: Code(s): M79.10 - Myalgia, unspecified site Plan: Patient's current symptoms are mostly muscular rather than neurological. Physical therapy has been ordered to improve the strength in his lower extremities. A trial of 4 weeks of physical therapy. Patient was requested to follow-up and further workup will be based on his improvement. Orders: Orders AMB Hemoglobin A1c Today E11.9 - Type 2 diabetes mellitus without complications Coding Level of Care Code Est Pt Level 4 (97939) Complex EM visit Add On G2211 Diagnoses Controlled diabetes mellitus type II without complication E11.9 Class 2 severe obesity with body mass index (BMI) of 35 to 39.9 with serious comorbidity E66.01 Essential hypertension I10 Hypercholesterolemia E78.00 Myalgia M79.10
[2024-04-05 08:22] VITALS: BP 100/76; PULSE 71; O2SAT 97; BMI 36.4
== END 2024-04-05 08:53 | disposition home or self-care (01) ==
PROVIDERS: PCP Internal Medicine; Visit Provider Internal Medicine
DX: E11.9 Type 2 diabetes mellitus without complications (principal); E66.01 Morbid (severe) obesity due to excess calories; Z68.36 Body mass index [BMI] 36.0-36.9, adult; I10 Essential (primary) hypertension; E78.00 Pure hypercholesterolemia, unspecified; M79.10 Myalgia, unspecified site
CPT/HCPCS: 83036; 99214; G2211

== ENCOUNTER 2024-04-08 06:24 | Outpatient (REF) | payer OTHER, SELFPAY ==
[2024-04-08 07:26] LABS: Hematocrit 43.2 % (42.0-52.0); Hemoglobin 14.5 g/dl (14.0-18.0); Mean Corpuscular HGB Conc 33.6 g/dl (31.0-36.0); Mean Corpuscular Hemoglobin 28.6 pg (27.0-33.0); Mean Corpuscular Volume 85.2 fL (80.0-98.0); Mean Platelet Volume 9.1 fL (9.4-12.4); Platelet Count 201 X10*3/uL (160-400); Red Blood Count 5.07 X10*6/uL (4.60-5.80); Red Cell Distribution Width 12.7 % (11.0-16.0); White Blood Count 7.2 X10*3/uL (4.8-10.8)
[2024-04-08 07:27] LABS: Appearance Urine Clear; Color Urine Dark Yellow; Glucose Urine UA Negative (Negative); Leukocyte Esterase Urine Negative (Negative); Nitrite Urine Negative (Negative); PH 6.5 (5.0-9.0); Specific Gravity - Urine 1.025 (1.005-1.025); Urine Blood Negative (Negative); Urine Ketones Negative (Negative); Urine Protein Trace mg/dL (Neg-Trace)
[2024-04-08 08:04] LABS: Creatinine Urine 282.18 mg/dL; Microalbum/Creatinine Ratio Ur 4.2 ug/mg cr (<30)
[2024-04-08 08:07] LABS: Erythrocyte Sedimentation Rate 7 MM/HR (0-15)
[2024-04-08 08:14] LABS: Alanine Aminotransferase 73 U/L (0-40); Albumin Level 4.3 g/dL (3.5-5.0); Alkaline Phosphatase 55 U/L (39-117); Anion Gap 13 (12-20); Aspartate Amino Transferase 48 U/L (5-37); Bilirubin Direct 0.2 mg/dL (0.0-0.5); Bilirubin Total 0.6 mg/dL (0.0-1.0); Blood Urea Nitrogen 12 mg/dL (9-16); Calcium 10.1 mg/dL (8.4-10.2); Carbon Dioxide 29 mmol/L (22-29); Chloride 100 mmol/L (96-108); Cholesterol 135 mg/dL (<200); Estimated Glomerular Filt Rate > 60; Glucose Random 122 mg/dL (60-115); HDL Cholesterol 35 mg/dL (>40); LDL Cholesterol Calculated 69 mg/dL (<100); Potassium 4.2 mmol/L (3.3-5.1); Sodium 138 mmol/L (135-145); Total Protein 7.7 g/dL (6.5-8.0); Triglycerides 158 mg/dL (<150)
[2024-04-08 08:17] LABS: Thyroid Stimulating Hormone 1.49 uIU/mL (0.32-4.0)
== END 2024-04-08 06:25 | disposition home or self-care (01) ==
LOC: HO.LAB 06:24
PROVIDERS: PCP Internal Medicine; Visit Provider Internal Medicine
DX: M79.10 Myalgia, unspecified site (principal)
CPT/HCPCS: 36415; 80048; 80061; 80076; 81003; 82043; 82550; 82570; 84443; 85027; 85652

== ENCOUNTER 2024-05-09 13:30 | Outpatient (AMB) | payer OTHER, SELFPAY ==
--- NOTE | 2024-05-09 13:43 | A.OFFPC_ITS ---
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 Accompanied by: Self / Same As Patient Allergies seafood Allergy (Intermediate, Verified 05/09/24 13:44) Nausea Iodinated Contrast Media [IV CONTRAST] Adverse Reaction (Severe, Verified 05/09/24 13:44) NAUSEA/VOMITING FROM IV DYE Tobacco use date assessed: 05/09/24 Dental Screening Dental Screen Date: 05/09/24 Did you have a dental visit in the last 12 months?: Yes Did you have a dental problem in the last 6 months where you did not have access to dental care?: No Was dental information given to patient?: Patient has dentist HPI Follow up Visit HPI Details 53-year-old male presents to the office to discuss his chronic medical conditions. After his last office visit, liver function tests were elevated and his cholesterol medication was discontinued. Patient continues to report that he is having difficulty walking. He reports pain in the upper thigh area. Sometimes he has to use a cane to ambulate. no history of fall. He is able to work. Compliant with other medications. [facility] Medical History (Updated 04/05/24 @ 08:58 by Emilio Garcia MD) Myalgia Sleep apnea Seasonal allergies Hypercholesterolemia Essential hypertension Diverticulosis large intestine w/o perforation or abscess w/o bleeding Sessile colonic polyp Arthrosis of both acromioclavicular joints Rotator cuff impingement syndrome of right shoulder Rotator cuff impingement syndrome of left shoulder Renal stones Left shoulder pain Class 2 severe obesity with body mass index (BMI) of 35 to 39.9 with serious comorbidity Controlled diabetes mellitus type II without complication Surgical History Hx of shoulder surgery Hx of lithotripsy Hx of cystoscopy Hx of colonoscopy Hx of arthroscopy of knee Family History Father Bleeding disorder Mother No problems noted. Maternal Aunt Cancer Paternal Uncle Diabetes Mother No problems noted. Father No problems noted. 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 1. Little interest or pleasure in doing things: not at all 2. Feeling down, depressed, or hopeless: not at all 3. Trouble falling or staying asleep, or sleeping too much: not at all 4. Feeling tired or having little energy: not at all 5. Poor appetite or overeating: not at all 6. Feeling bad about yourself - or that you are a failure or have let yourself or your family down: not at all 7. Trouble concentrating on things, such as reading the newspaper or watching television: not at all 8. Moving or speaking so slowly that other people could have noticed. Or the opposite - being so fidgety or restless that you have been moving around a lot more than usual: not at all 9. Thoughts that you would be better off or of hurting yourself in some way: not at all Total score: 0 Depression Screening Interpretation: Negative Depression Screening Done: Yes Source: Developed by Drs. Kelton Delaney, Marija Arnold, Deepak Harmon and colleagues, with an educational blaze from [employer]. Thrive Questionnaire Date Thrive assessed: 05/09/24 I am a: Patient What is your living situation today?: I have a steady place to live Within the past 12 months, did the food you bought not last and you didn't have the money to get more?: Never true Within the past 12 months, did you worry whether your food would run out before you got money to buy more?: Never true Do you have trouble paying for medicines?: No Do you have trouble getting transportation to medical appointments?: No Do you have trouble paying your heating and electricity bill?: No Do you have trouble taking care of your child, family member or friend?: No Do you have trouble with day-to-day activities such as bathing, preparing meals, shopping, managing finances, etc.?: No Are you currently unemployed and looking for a job?: No Are you interested in more education?: No Please select the resources that you would like help with: None Currently or been in a relationship where the following occur: No concerns reported THRIVE Score: 0 AUDIT C Alcohol Use Questionnaire (AUDIT-C) 1. How often do you have a drink containing alcohol?: Never Total Score: 0 EDE-7 AMB Questionnaire EDE-7 Date EDE - 7 assessed: 05/09/24 Feeling nervous, anxious, or on edge: 0 = Not at all Not being able to stop or control worryin = Not at all Worrying too much about different things: 0 = Not at all Trouble relaxin = Not at all Being so restless that it is hard to sit still: 0 = Not at all Becoming easily annoyed or irritable: 0 = Not at all Feeling afraid as if something awful might happen: 0 = Not at all Total EDE-7 score (0-4 normal; 5-9 mild; 10-14 moderate; 15-21 severe): 0 Source: Developed by Drs. Kelton Delaney, Marija Arnold, Deepak Harmon and colleagues, with an educational blaze from [employer]. Physical exam (Primary Care) Vital Signs: Last Vital Signs Pulse 83 05/09/24 13:44 BP 122/82 05/09/24 13:44 Pulse Ox 96 05/09/24 13:44 Oxygen Delivery Method Room Air 05/09/24 13:44 BMI result Body Mass Index 36.4 Tobacco/Smoking Status: Tobacco use Status Tobacco use date assessed 05/09/24 05/09/24 13:50 Patient Tobacco Use Status Former Tobacco user 05/09/24 13:50 Tobacco use type Cigar 05/09/24 13:50 e-Cigarette/Vaping Use Never Used 05/09/24 13:50 PHQ-9: PHQ-9 Score PHQ-9: Total score 0 05/09/24 13:50 Depression Screening Interpretation: Negative Thrive Assessment: Date of Thrive Assessment Date Thrive assessed 05/09/24 05/09/24 13:50 Currently or been in a relationship where the following occur: No concerns reported Const General: cooperative and healthy appearing Nutritional Appearance: well nourished Orientation/consciousness: patient oriented x3 Limitations: no limitations HENMT Head: Yes normal to inspection Eyes General: appearance normal, both eyes and all related structures Neck Neck: Yes normal visual inspection Chest Chest palpation & inspection: normal palpation of entire chest wall Resp Effort & Inspection: normal respiratory effort Neuro General: patient oriented x3 Extrem Other: Right and left hip: No tender areas. Straight leg test, patient is experiencing discomfort when leg elevated greater than 20 degrees. Assessment and Plan Assessment & Plan (1) Myalgia: Code(s): M79.10 - Myalgia, unspecified site Plan Blood work has been ordered. Inflammatory markers have been ordered. Physical therapy needs to be done. Patient was encouraged to keep the appointment. Orders: Orders Liver Panel Today M79.606 - Pain in leg, unspecified Lipid Panel Today M79.606 - Pain in leg, unspecified C Reactive Protein Today M79.606 - Pain in leg, unspecified Erythrocyte Sedimentation Rate Today M79.606 - Pain in leg, unspecified Basic Metabolic Panel Today M79.606 - Pain in leg, unspecified UA and rflx microscopic Today M79.606 - Pain in leg, unspecified Complete Blood Count no Diff Today M79.606 - Pain in leg, unspecified Creatine Kinase Total Today M79.606 - Pain in leg, unspecified Medications: Refilled sitagliptin phosphate (Januvia) 50 mg PO DAILY 90 tabs 1RF Coding Level of Care Code Est Pt Level 4 (66773) Diagnoses Myalgia M79.10
[2024-05-09 13:44] VITALS: BP 122/82; PULSE 83; O2SAT 96; BMI 36.4
== END 2024-05-09 14:13 | disposition home or self-care (01) ==
PROVIDERS: PCP Internal Medicine; Visit Provider Internal Medicine
DX: M79.10 Myalgia, unspecified site (principal)
CPT/HCPCS: 99214

== ENCOUNTER 2024-05-17 06:11 | Outpatient (REF) | payer OTHER, SELFPAY ==
[2024-05-17 07:29] LABS: Hematocrit 40.7 % (42.0-52.0); Hemoglobin 13.7 g/dl (14.0-18.0); Mean Corpuscular HGB Conc 33.7 g/dl (31.0-36.0); Mean Corpuscular Hemoglobin 28.8 pg (27.0-33.0); Mean Corpuscular Volume 85.5 fL (80.0-98.0); Platelet Count 244 X10*3/uL (160-400); Red Blood Count 4.76 X10*6/uL (4.60-5.80); Red Cell Distribution Width 12.2 % (11.0-16.0); White Blood Count 7.2 X10*3/uL (4.8-10.8)
[2024-05-17 07:47] LABS: Appearance Urine Clear; Color Urine Yellow; Glucose Urine UA Negative (Negative); Leukocyte Esterase Urine Negative (Negative); Nitrite Urine Negative (Negative); PH 5.5 (5.0-9.0); Urine Blood Negative (Negative); Urine Ketones Negative (Negative); Urine Protein Negative (Neg-Trace)
[2024-05-17 07:57] LABS: Alanine Aminotransferase 67 U/L (0-40); Albumin Level 3.9 g/dL (3.5-5.0); Alkaline Phosphatase 57 U/L (39-117); Anion Gap 13 (12-20); Aspartate Amino Transferase 38 U/L (5-37); Bilirubin Direct 0.1 mg/dL (0.0-0.5); Bilirubin Total 0.3 mg/dL (0.0-1.0); Blood Urea Nitrogen 13 mg/dL (9-16); C Reactive Protein < 0.10 mg/dL (< or = 0.50); Calcium 9.4 mg/dL (8.4-10.2); Carbon Dioxide 28 mmol/L (22-29); Chloride 101 mmol/L (96-108); Cholesterol 152 mg/dL (<200); Estimated Glomerular Filt Rate > 60; Glucose Random 143 mg/dL (60-115); HDL Cholesterol 30 mg/dL (>40); LDL Cholesterol Calculated 82 mg/dL (<100); Potassium 3.5 mmol/L (3.3-5.1); Sodium 138 mmol/L (135-145); Total Protein 7.2 g/dL (6.5-8.0); Triglycerides 202 mg/dL (<150)
[2024-05-17 08:13] LABS: Erythrocyte Sedimentation Rate 7 MM/HR (0-15)
== END 2024-05-17 06:12 | disposition home or self-care (01) ==
LOC: HO.LAB 06:11
PROVIDERS: PCP Internal Medicine; Visit Provider Internal Medicine
DX: M79.606 Pain in leg, unspecified (principal)
CPT/HCPCS: 36415; 80048; 80061; 80076; 81003; 82550; 85027; 85652; 86140

== ENCOUNTER 2024-06-02 07:02 | Outpatient (RCR) | payer OTHER, SELFPAY ==
--- NOTE | 2024-06-02 16:28 | MHC.PT.EP ---
[facility] [place] [facility] [place] [facility] [place] [facility] [address] Tiffanie Cheek [address] [phone] F: [phone] F: [phone] F: [phone] F: [phone] Physical Therapy Plan of Care Date of Evaluation: 06/02/24 Date of Surgery: Diagnosis: M79.10 Myalgia, unspecified site, Improved strength and mobility in both right and left lower extremity signed by Dr. Emilio Layne by 04/05/24 Assessment: Pt is a RHD 53 y/o male with PMH significant forSleep apnea Seasonal allergies Hypercholesterolemia Essential hypertension Diverticulosis large intestine w/o perforation or abscess w/o bleeding Sessile colonic polyp Arthrosis of both acromioclavicular joints Rotator cuff impingement syndrome of right shoulder Rotator cuff impingement syndrome of left shoulder Renal stones Left shoulder pain Class 2 severe obesity with body mass index (BMI) of 35 to 39.9 with serious comorbidity Controlled diabetes mellitus type II without complication Hx of shoulder surgery Hx of lithotripsy Hx of cystoscopy Hx of colonoscopy Hx of arthroscopy of knee , referred to PT for treatment of Myalgia, unspecified site: improve strength and mobility in both right and left lower extremity referred to PT from Dr. Frazier Improved strength and mobility in both right and left lower extremity signed by Dr. Emilio Layne by 04/05/24. Pt exhibits significant weakness of his bilateral LE with report of back pain R>L onset of sx in December 2023, report of parathesias and nerve pain radiating below the knee, presents with noted gait deficit/weakness (encouraged to use cane due to seveity of sx, presents without AD in the office this date). Pt expressing difficulty advancing his R<L LE, exhibits decreased reflexes on L>R knee at patella and achilles. He reports is TTP height of L2-L5 R>L central, has pain and poor moblity for scooting/bridging, and R sidelying. Pt expresses bilateral LE instability, inability to flex and lift his hip/knee. Pain with PROM IR>ER. Pt will benefit from PCP follow up to assess need for MRI and or referral to Neurosurgeon gary due to concern for spinal stenosis/ and or neurological compression impacting his B LE is present (+) sensory and motor weakness, denies bowel/bladder incontinence. Therapist called into [facility] this am following initial evaluation after 7:00am eval and spoke with Noemi verdin: concern, message was placed. A second call was placed today at the end of the day spoke with Natasha Sinha health practice manager after 4:00 pm to assess status of previous inquiry who stated patient will be seeing Dr. Garcia tomorrow at 9:00am. Frequency and Duration: The patient will be seen No further PT is recommended at this time. Short Term Goals: Therapist is recommending urgent follow up with PCP with recommendation for stat MRI with referral to neurosurgeon and/or neurology due to concern for B LE motor weakness with instability, worsening weakness and pain/parathesias down both legs below the knee. Concern for question of lumbar stenosis/ and or nerve compression is noted based on exam, screening, lack of DTRs and sx presentation. Prison Goals: Treatment Plan: Modalities to reduce pain, spasms and effusion. Manual therapy to restore motion and function. Therapeutic exercise to improve strength and flexibility. Neuromuscular re-education for posture and balance. Therapeutic activities to return to functional activities of daily living. Electronically signed by: Cathy Moffett, PT, DPT Please sign and return to therapist. Thank you for your referral.
== END 2024-10-17 07:31 | disposition home or self-care (01) ==
LOC: HO.PTWFD 07:02
PROVIDERS: PCP Internal Medicine; Visit Provider Internal Medicine
DX: M79.10 Myalgia, unspecified site (principal)
CPT/HCPCS: 97162

== ENCOUNTER 2024-06-03 08:43 | Outpatient (AMB) | payer OTHER, SELFPAY ==
--- NOTE | 2024-06-03 08:47 | A.OFFPC_ITS ---
Vital Signs 06/03/24 08:48 Height 5 ft 8 in Weight 239 lb 4 oz BMI 36.4 BP 130/80 Blood Pressure Location Lt brachial Position Sitting Pulse 74 Pulse Source Pulse Oximeter Pulse Oximetry (%) 96 Oxygen Delivery Method Room Air Intake Visit Reasons: follow up leg weakness Intake Note: Patient is here to follow up on leg weakness. Medical Radiation Dosimetrist Required: No Occupational Medicine Specialist: Not Required per policy Accompanied by: Self / Same As Patient Allergies seafood Allergy (Intermediate, Verified 06/03/24 09:11) Nausea Iodinated Contrast Media [IV CONTRAST] Adverse Reaction (Severe, Verified 06/03/24 09:11) NAUSEA/VOMITING FROM IV DYE Medication List - Last Reconciled 06/03/24 by Emilio Garcia MD allopurinol 100 mg PO DAILY 90 days aspirin 81 mg PO DAILY blood sugar diagnostic (FreeStyle Test strips) USE DIRECTED 2 TIMES A DAY fexofenadine (Thuy Allergy) 60 mg PO DAILY indapamide 2.5 mg PO DAILY 90 days lancets test 2 times per day lancets As directed lisinopril 10 mg PO DAILY metformin 1,000 mg PO BID multivitamin 1 tab PO DAILY potassium citrate ER 10 mEq PO BID 90 days sitagliptin phosphate (Januvia) 50 mg PO DAILY Tobacco use date assessed: 06/03/24 Dental Screening Dental Screen Date: 05/09/24 HPI follow up leg weakness HPI Details 53-year-old male presents to the office for an urgent visit. Patient went to the physical therapy for the 1st time and the therapist was wondering if patient would benefit from imaging to determine his diagnosis. I brought him back into the office to assess him before ordering the imaging. Patient has been complaining of pain and numbness and cramping in legs since the visit of April 05. The symptoms predate that visit by 4 months. There was no fall or injury prior to the onset of symptoms. Patient was reporting symptoms of pain worse on walking. Physical therapy, anti-inflammatory and muscle relaxants were ordered. Patient was subsequently seen on May 09 and had still not started physical therapy. However his pain symptoms were worsening. He has started using a cane to ambulate, more for a precaution to prevent him from falling. He stopped exercising and could not get on a bike. The statins were stopped because his creatinine kinase was slightly elevated. The repeat creatinine kinase shows a declining trend. Patient presents to the office today with similar complaints. He reports constant throbbing pain in the upper thigh. No difficulty urination. [facility] Medical History (Updated 04/05/24 @ 08:58 by Emilio Garcia MD) Myalgia Sleep apnea Seasonal allergies Hypercholesterolemia Essential hypertension Diverticulosis large intestine w/o perforation or abscess w/o bleeding Sessile colonic polyp Arthrosis of both acromioclavicular joints Rotator cuff impingement syndrome of right shoulder Rotator cuff impingement syndrome of left shoulder Renal stones Left shoulder pain Class 2 severe obesity with body mass index (BMI) of 35 to 39.9 with serious comorbidity Controlled diabetes mellitus type II without complication Surgical History Hx of shoulder surgery Hx of lithotripsy Hx of cystoscopy Hx of colonoscopy Hx of arthroscopy of knee Family History Father Bleeding disorder Mother No problems noted. Maternal Aunt Cancer Paternal Uncle Diabetes Mother No problems noted. Father No problems noted. 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 Kelton Delaney, Marija Arnold, Deepak Harmon and colleagues, with an educational blaze from [employer]. Physical exam (Primary Care) Vital Signs: Last Vital Signs Pulse 74 06/03/24 08:48 BP 130/80 06/03/24 08:48 Pulse Ox 96 06/03/24 08:48 Oxygen Delivery Method Room Air 06/03/24 08:48 BMI result Body Mass Index 36.4 Tobacco/Smoking Status: Tobacco use Status Tobacco use date assessed 06/03/24 06/03/24 08:52 Patient Tobacco Use Status Former Tobacco user 06/03/24 08:52 Tobacco use type Cigar 06/03/24 08:52 e-Cigarette/Vaping Use Never Used 06/03/24 08:52 Thrive Assessment: Date of Thrive Assessment Date Thrive assessed 05/09/24 06/03/24 08:52 Const General: cooperative and healthy appearing Nutritional Appearance: well nourished Orientation/consciousness: patient oriented x3 Limitations: no limitations HENMT Head: Yes normal to inspection Eyes General: appearance normal, both eyes and all related structures Neck Neck: Yes normal visual inspection Chest Chest palpation & inspection: normal palpation of entire chest wall Resp Effort & Inspection: normal respiratory effort Back/Spine/Pelvis Other: Minimal paraspinal discomfirt. Diminished knee reflexes/. Neuro General: patient oriented x3 Assessment and Plan Assessment & Plan (1) Myalgia: Code(s): M79.10 - Myalgia, unspecified site Plan: Difficulty walking, diminished knee reflexes point towards spinal abnormality. Could be spinal stenosis or DJD. MRI of the lower spine is warranted. MRI orderes placed Orders: Orders MR lumbar spine w con Today M48.061 - Spinal stenosis, lumbar region without neurogenic claudication Coding Level of Care Code Est Pt Level 4 (98373) Complex EM visit Add On G2211 Diagnoses Myalgia M79.10
[2024-06-03 08:48] VITALS: BP 130/80; PULSE 74; O2SAT 96; BMI 36.4
== END 2024-06-03 09:41 | disposition home or self-care (01) ==
PROVIDERS: PCP Internal Medicine; Visit Provider Internal Medicine
DX: M79.10 Myalgia, unspecified site (principal)

== ENCOUNTER → 2024-06-03 08:43 | Outpatient (BNVA) | payer OTHER, SELFPAY | PROVIDERS: PCP Internal Medicine; Visit Provider Internal Medicine | DX: M79.10 Myalgia, unspecified site (principal) ==

== ENCOUNTER 2024-06-29 18:23 | Outpatient (REF) | payer OTHER, SELFPAY ==
--- NOTE | ~2024-06-29 | MR_ITS ---
EXAMINATION: MR LUMBAR SPINE WITHOUT CONTRAST CLINICAL INFORMATION: Spinal stenosis, lumbar spine without neurogenic claudication. COMPARISON: None available. TECHNIQUE: MRI of the lumbar spine was obtained using routine sequences without contrast. FINDINGS: Last rib-bearing vertebra labeled T12. Multilevel marginal osteophyte formation and disc desiccation more conspicuous at T12-L1, L3-4 and L4-5 levels. Grade 1 anterolisthesis L3-4. No bone marrow STIR signal abnormality. Conus medullaris ends at superior endplate of L1 with normal signal. T12-L1: No disc herniation. No neuroforamina stenosis. L1-2: Broad-based disc bulging. Facet joint hypertrophy. No neuroforamina stenosis. L2-3: Broad-based disc bulging. Facet joint and ligamentum flavum hypertrophy. Reduced AP diameter of the thecal sac and neuroforamina. No compression upon neural elements. L3-4: Grade 1 anterolisthesis. Facet joint and ligamentum flavum hypertrophy. Reduced AP diameter of the thecal sac with CSF effacement. Bilateral neuroforamina stenosis likely encroaching the neural elements. L4-5: [Subarticular and foraminal broad-based disc herniation resulting in ventral deformity of the thecal sac and encroaching likely compressing the left L5 nerve root. Facet joint and ligamentum flavum hypertrophy. L5-S1: Broad-based disc bulging. Facet joint hypertrophy. No disc herniation. Bilateral neuroforamina narrowing encroaching the L5 exiting nerve roots. No prevertebral compartment hematoma, mass or fluid collection. Hyperintense T2 cystic lesion in the right kidney. MR/MR lumbar spine wo con IMPRESSION: Left subarticular and foraminal broad-based disc herniation at L4-5 compressing the left L5 nerve roots. Grade 1 anterolisthesis L3-4 on a degenerative basis resulting in central spinal canal and bilateral neuroforamina stenosis encroaching the neural elements. Electronically signed by: Jarrett Thakkar MD 08/05/2024 03:54 PM EST
== END 2024-06-29 18:24 | disposition home or self-care (01) ==
LOC: HO.MRI 18:23
PROVIDERS: PCP Internal Medicine; Visit Provider Internal Medicine
DX: M48.061 Spinal stenosis, lumbar region without neurogenic claudication (principal)
CPT/HCPCS: 72148

== ENCOUNTER → 2024-06-29 18:23 | Outpatient (BNV) | payer OTHER, SELFPAY | PROVIDERS: PCP Internal Medicine; Visit Provider Radiology Diagnostic Radiology | DX: M48.061 Spinal stenosis, lumbar region without neurogenic claudication (principal) | CPT/HCPCS: 72148 ==

== ENCOUNTER 2024-07-27 10:51 | Outpatient (AMB) | payer OTHER, SELFPAY ==
[2024-07-27 11:16] VITALS: BP 128/74; PULSE 71; O2SAT 97; BMI 36.5
--- NOTE | 2024-07-27 11:16 | MHC.OFFVIS ---
Vital Signs 07/27/24 11:16 Height 5 ft 8 in Weight 240 lb 1.334 oz BMI 36.5 BP 128/74 Blood Pressure Location Lt brachial Position Sitting Pulse 71 Pulse Source Pulse Oximeter Pulse Oximetry (%) 97 Oxygen Delivery Method Room Air Intake Visit Reasons: Myalgia/CM Intake Note: Patient presents today for myalgia, he is a new patient internally referred by PCP, Dr. Garcia. Allergies seafood Allergy (Intermediate, Verified 07/27/24 11:18) Nausea Iodinated Contrast Media [IV CONTRAST] Adverse Reaction (Severe, Verified 07/27/24 11:18) NAUSEA/VOMITING FROM IV DYE Medication List - Last Reconciled 07/27/24 by Maryann Hay MD allopurinol 100 mg PO DAILY 90 days aspirin 81 mg PO DAILY blood sugar diagnostic (FreeStyle Test strips) USE DIRECTED 2 TIMES A DAY fexofenadine (Thuy Allergy) 60 mg PO DAILY indapamide 2.5 mg PO DAILY 90 days lancets test 2 times per day lancets As directed lisinopril 10 mg PO DAILY metformin 1,000 mg PO BID multivitamin 1 tab PO DAILY potassium citrate ER 10 mEq PO BID 90 days sitagliptin phosphate (Januvia) 50 mg PO DAILY HPI Comments Details: Patient is a 53-year-old male with diabetes, hypertension, 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 He denies overt muscle weakness involving his proximal muscles including his thighs or his shoulders but he does note that he can not do things that he normally does and has to now walk around with a cane. Denies statin use or red yeast rice supplement use. No new medications in the past year. Denies history of Raynaud's. No rashes. No family history of autoimmune disease. No history of exertional shortness of breath. Does not carry a diagnosis of ILD [facility] Medical History (Updated 04/05/24 @ 08:58 by Emilio Garcia MD) Myalgia Sleep apnea Seasonal allergies Hypercholesterolemia Essential hypertension Diverticulosis large intestine w/o perforation or abscess w/o bleeding Sessile colonic polyp Arthrosis of both acromioclavicular joints Rotator cuff impingement syndrome of right shoulder Rotator cuff impingement syndrome of left shoulder Renal stones Left shoulder pain Class 2 severe obesity with body mass index (BMI) of 35 to 39.9 with serious comorbidity Controlled diabetes mellitus type II without complication Surgical History Hx of shoulder surgery Hx of lithotripsy Hx of cystoscopy Hx of colonoscopy Hx of arthroscopy of knee Family History Father Bleeding disorder Mother No problems noted. Maternal Aunt Cancer Paternal Uncle Diabetes Mother No problems noted. Father No problems noted. 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 Cognitive needs: No Hearing needs: No Vision needs: Yes (Glasses) Review of Systems Const Details: Review of Systems Constitutional: Denies fever, chills, weight loss ENT: Denies vision changes, eye pain or eye redness, dental caries, dry mouth GI: Denies nausea, vomiting, diarrhea, abdominal pain, change in BM Pulm: Denies SOB, POOL, hemoptysis, wheezing Cards: Denies chest pain, palpitations Skin: Denies Raynaud's, rash, nail changes, photosensitivity, DIRECTOR ZONE: Denies headaches, weakness, paresthesias, recurrent falls MSK: as per HPI All other systems reviewed and are unremarkable except noted above Physical Exam Vital Signs: Last Vital Signs Pulse 71 07/27/24 11:16 BP 128/74 07/27/24 11:16 Pulse Ox 97 07/27/24 11:16 Oxygen Delivery Method Room Air 07/27/24 11:16 BMI result Body Mass Index 36.5 Physical Examination CONSTITUITIONAL Patient alert and cooperative. Well appearing and in no apparent painful distress HEENT Conjunctiva and sclera clear. ?Pupils equal round and reactive to light. ?No lymphadenopathy. ?Normal dentition. No oral or nasal ulcers noted. No evidence of discoid rash to the magaly of ears CHEST/RESPIRATORY SYSTEM Normal respiratory effort and able to speak in complete sentences. ?Clear to auscultation bilaterally. ?No crackles, rales, rhonchi, wheezes heard. CARDIAC SYSTEM Regular rate and rhythm. ?S1 and S2 heard no murmurs. 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 ?No deformities noted. ?No synovitis noted to the MCPs, PIPs or DIPs. ?No tenderness to palpation of these joints. Wrists: ?Full range of motion at the wrists without pain. ?No tenderness to palpation or synovitis noted to the wrists. Elbows: Full range of motion without pain. No tenderness, weakness, swelling, increased warmth or erythema. Shoulders: Full range of motion without pain. No tenderness, weakness, swelling, increased warmth or erythema. Hips: Full range of motion without pain. Hip bursa: No tenderness to palpation Knees: ?Full range of motion. ?No tenderness, swelling, increased warmth or erythema.?No effusion or crepitations Ankles: Full range of motion. ?No tenderness, swelling, increased warmth or erythema.? Feet: ?Negative squeeze test. ?No tenderness to palpation or swelling of the MTPs. Tender points:??No tenderness to palpation of the neck, shoulders, chest, elbows, hips, buttocks or knees. Right Left Neck Flexion 5 Shoulder abduction 5 5 Shoulder adduction 5 5 Elbow flexion 5 5 Elbow extension 5 5 Wrist flexion 5 5 Wrist extension 5 5 Dog Beautician strength 5 5 Hip flexion 5 5 Knee flexion 5 5 Knee extension 4+ 4+ Ankle dosiflexion 5 5 Ankle plantarflexion 4+ 4+ SKIN Scaling rashes noted to palmar surface of hands left more than right Results Reviewed Results Reviewed: Laboratory Tests 04/08/24 05/17/24 06:43 06:24 WBC 7.2 7.2 RBC 5.07 4.76 Hgb 14.5 13.7 L Hct 43.2 40.7 L Plt Count 201 244 ESR 7 7 Sodium 138 138 Potassium 4.2 3.5 Chloride 100 101 Carbon Dioxide 29 28 BUN 12 13 Creatinine 1.23 1.02 AST 48 H 38 H ALT 73 H 67 H Total Creatine Kinase 596 H 319 H C-Reactive Protein < 0.10 Assessment & Plan Assessment & Plan (1) Myalgia: Code(s): M79.10 - Myalgia, unspecified site Category: Medical Plan: #Myalgias Patient with myalgias neuropathic type symptoms. Does not have significant proximal muscle weakness although had some weakness to knee flexors and plantar dorsiflexors. We will check myositis panel workup. Get EMG Plan I spent 45 minutes reviewing the record and labs, seeing the patient, discussing the treatment plan and documenting in the medical record ? Orders: Orders Complete Blood Count Auto Diff Today M79.10 - Myalgia, unspecified site Comprehensive Met. Panel Today M79.10 - Myalgia, unspecified site C Reactive Protein Today M79.10 - Myalgia, unspecified site MSA Panel Extended Today M79.10 - Myalgia, unspecified site Aldolase Today M79.10 - Myalgia, unspecified site CK, Total+Isoenzymes, Serum Today M79.10 - Myalgia, unspecified site NE electromyogram (EMG) Today M79.10 - Myalgia, unspecified site Anti Extractable Nuclear Ag Today M79.10 - Myalgia, unspecified site MARCIA Reflex Titer and Pattern Today M79.10 - Myalgia, unspecified site Erythrocyte Sedimentation Rate Today M79.10 - Myalgia, unspecified site Coding Level of Care Code New Pt Level 4 (43589) Diagnoses Myalgia M79.10
== END 2024-07-27 11:36 | disposition home or self-care (01) ==
PROVIDERS: PCP Internal Medicine; Visit Provider Student in an Organized Health Care Education/Training Program
DX: M79.10 Myalgia, unspecified site (principal)
CPT/HCPCS: 99204

== ENCOUNTER 2024-07-27 11:43 | Outpatient (REF) | payer OTHER, SELFPAY ==
[2024-07-27 12:12] LABS: MANUAL DIFF FLAG NO
[2024-07-27 12:55] LABS: Basophils Percent Auto 0.6 % (0-2); Eosinophils Absolute Auto 0.1 X10*3/uL (0.0-0.4); Eosinophils Percent Auto 1.3 % (0-4); Hematocrit 42.1 % (42.0-52.0); Hemoglobin 14.5 g/dl (14.0-18.0); Imm Gran Abs Auto 0.01 X10*3/uL (0.00-0.03); Imm Gran Pct Auto 0.1 % (0.0-0.4); Lymphocytes Percent Auto 30.6 % (20-40); Mean Corpuscular HGB Conc 34.4 g/dl (31.0-36.0); Mean Corpuscular Hemoglobin 29.5 pg (27.0-33.0); Mean Corpuscular Volume 85.7 fL (80.0-98.0); Mean Platelet Volume 9.2 fL (9.4-12.4); Monocytes Absolute Auto 0.5 X10*3/uL (0.1-1.2); Monocytes Percent Auto 6.9 % (2-11); Neutrophils Percent Auto 60.5 % (45-73); Platelet Count 211 X10*3/uL (160-400); Red Blood Count 4.91 X10*6/uL (4.60-5.80); Red Cell Distribution Width 12.5 % (11.0-16.0); White Blood Count 6.7 X10*3/uL (4.8-10.8)
[2024-07-27 13:29] LABS: Erythrocyte Sedimentation Rate 5 MM/HR (0-15)
[2024-07-27 13:48] LABS: Alanine Aminotransferase 100 U/L (0-40); Albumin Level 4.2 g/dL (3.5-5.0); Alkaline Phosphatase 54 U/L (39-117); Anion Gap 13 (12-20); Aspartate Amino Transferase 53 U/L (5-37); Bilirubin Total 0.4 mg/dL (0.0-1.0); Blood Urea Nitrogen 12 mg/dL (9-16); C Reactive Protein < 0.04 mg/dL (< or = 0.50); Calcium 9.9 mg/dL (8.4-10.2); Carbon Dioxide 27 mmol/L (22-29); Chloride 100 mmol/L (96-108); Estimated Glomerular Filt Rate > 60; Glucose Random 123 mg/dL (60-115); Potassium 3.9 mmol/L (3.3-5.1); Sodium 136 mmol/L (135-145); Total Protein 7.6 g/dL (6.5-8.0)
[2024-07-29 19:43] LABS: SM/Ribonucleoprotein Ab <1.0 NEG AI (<1.0 NEG); Smith Protein <1.0 NEG AI (<1.0 NEG)
[2024-07-30 21:23] LABS: CK-BB None Detected (None Detected); CK-MB 2 % (<5); CK-MM 88 % (95-100); Creatine Kinase Isoenzyme Itrp MACRO CK TYPE 1; Creatine Kinase,Total,Serum 507 U/L (44-196)
[2024-08-01 03:28] LABS: Aldolase 11.2 U/L (<=8.1)
[2024-08-01 10:43] LABS: Anti Nuclear Antibody Screen NEGATIVE (NEGATIVE)
[2024-08-16 16:28] LABS: Cytosolic 5'nuc 1A Ab IgG <5 Units; Ej Ab <11 SI (<11); HMGCR Ab IgG <2 CU (<20); Jo-1 Ab <11 SI (<11); MDA5 Ab <11 SI (<11); Mi-2 alpha Ab <11 SI (<11); Mi-2 beta Ab <11 SI (<11); NXP-2 (MJ) Ab <11 SI (<11); Oj Ab <11 SI (<11); Pl-12 Ab <11 SI (<11); Pl-7 Ab <11 SI (<11); SRP Ab <11 SI (<11); TIF1 gamma Ab <11 SI (<11)
== END 2024-07-27 11:44 | disposition home or self-care (01) ==
LOC: HO.LAB 11:43
PROVIDERS: PCP Internal Medicine; Visit Provider Student in an Organized Health Care Education/Training Program
DX: M79.10 Myalgia, unspecified site (principal)
CPT/HCPCS: 36415; 80053; 82085; 82552; 83516; 83520; 84182; 85025; 85652; 86038; 86140; 86235

== ENCOUNTER 2024-08-09 15:43 | Outpatient (REF) | payer OTHER, SELFPAY | END 2024-08-09 15:44 | disposition home or self-care (01) | LOC: HO.US 15:43 | PROVIDERS: PCP Internal Medicine; Visit Provider Urology | DX: R82.994 Hypercalciuria (principal) | CPT/HCPCS: 76775 ==

== ENCOUNTER 2024-08-16 13:41 | Outpatient (AMB) | payer OTHER, SELFPAY ==
--- NOTE | 2024-08-16 13:42 | MHC.OFFVIS ---
Intake Visit Reasons: 6M US(08/09) Intake Note: Patient is present for 6M US Urology Medication:INDAPAMIDE,ALLOPURINOL,POTASSIUM Antibiotic Allergy:NONE Blood Thinner:ASPIRIN Pocketed Spring Machine Operator Required: No Allergies seafood Allergy (Intermediate, Verified 08/16/24 13:42) Nausea Iodinated Contrast Media [IV CONTRAST] Adverse Reaction (Severe, Verified 08/16/24 13:42) NAUSEA/VOMITING FROM IV DYE HPI Comments Details: Trevor is a pleasant male. He is a patient of . He is seen for the following urologic conditions - nephrolithiasis Telemedicine Evaluation 15 min Consultation [employer] Oscar Video attempted Renal ultrasound persistent 2 mm stone left side. Current therapy includes indapamide, allopurinol and potassium citrate - potassium citrate to 10 mEq p.o. b.i.d. Advice given regarding decreased dietary oxalate and decreased dietary sodium Twelve month follow-up imaging Nephrolithiasis Baseline diabetic Multiple prior ESWL for stone removal - last procedure 2018 Imaging - 01/03 renal ultrasound bilateral stones up to 9 mm on each side - 06/05 renal ultrasound 5 mm bilateral - 02/03 renal ultrasound bilateral 5-6 mm - 08/06 renal ultrasound bilateral 5 mm stones - 02/04 renal ultrasound 5 mm left Intervention - 04/04 ureteroscopy - 01/05 left ESWL 24 hour urine - 04/04 high urine calcium - 08/06 good volume, low calcium, low citrate, high sodium, elevated oxalate Medication - vitamin B6 Concomitant medical conditions diabetes, diverticulitis PFSH Medical History (Updated 08/05/24 @ 16:02 by Emilio Garcia MD) Spinal stenosis Myalgia Sleep apnea Seasonal allergies Hypercholesterolemia Essential hypertension Diverticulosis large intestine w/o perforation or abscess w/o bleeding Sessile colonic polyp Arthrosis of both acromioclavicular joints Rotator cuff impingement syndrome of right shoulder Rotator cuff impingement syndrome of left shoulder Renal stones Left shoulder pain Class 2 severe obesity with body mass index (BMI) of 35 to 39.9 with serious comorbidity Controlled diabetes mellitus type II without complication Surgical History Hx of shoulder surgery Hx of lithotripsy Hx of cystoscopy Hx of colonoscopy Hx of arthroscopy of knee Family History Father Bleeding disorder Mother No problems noted. Maternal Aunt Cancer Paternal Uncle Diabetes Mother No problems noted. Father No problems noted. 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 Cognitive needs: No Hearing needs: No Vision needs: Yes (Glasses) Review of Systems Const All systems reviewed & are unremarkable except as noted in HPI and below Reports no additional complaints Resp Reports no additional complaints GI Reports no additional complaints Reports as per HPI Musc Reports no additional complaints Physical Exam Telemedicine evaluation Appropriate responses Regular breathing rate and rhythm HEENT Head: Yes normal to inspection Ears: hearing grossly normal bilaterally Eyes General: appearance normal, both eyes and all related structures Neck Neck: Yes normal visual inspection Chest Chest palpation & inspection: normal inspection of the chest Resp Effort & Inspection: normal respiratory effort and able to speak in complete sentences Telehealth Telehealth Telehealth Platform: [employer] Location of provider rendering services: practice address Location of patient: address on file Patient Identification confirmed using: Name, : Yes Telehealth method: video Patient verbally consented to treatment: Yes Patient verbally consented to billing insurance company: Yes Patient informed of any privacy concerns related to visit: Yes Minutes spent on Phone/Video with Pt.: 15 Assessment & Plan Assessment & Plan (1) Renal stones: Code(s): N20.0 - Calculus of kidney Category: Medical (2) Hypercalciuria: Code(s): R82.994 - Hypercalciuria Category: Medical Plan Twelve month follow-up imaging Medications: Refilled allopurinol 100 mg PO DAILY 90 days 90 tabs 3RF N20.0 - Calculus of kidney, R82.994 - Hypercalciuria potassium citrate ER 10 mEq PO BID 90 days 180 tabs 3RF N20.0 - Calculus of kidney Patient Instructions: Imaging studies, laboratory and physical exam results were discussed and reviewed in detail. No major barriers to patient understanding were identified. An opportunity to ask questions regarding the treatment plan was provided. All questions were answered. The patient expressed understanding and agreement with the above treatment plan. The patient is aware they should contact our office by phone for worsening of their current condition or the appearance of new urologic symptoms. Compliance is encouraged with any medications and followup testing that is ordered. It is a privilege to participate in the urologic care of your patient. If you have any questions or concerns regarding treatment for the above conditions, or other urologic issues, please do not hesitate to contact me. The office telephone contact is [phone]. This note is constructed using voice recognition software. While every effort has been made to ensure accuracy automatic clipper errors may have been included. Yours sincerely, Dr Torin Logan MD, [facility] - Urology Providers of Expert, Compassionate Care for the Genitourinary System Coding Level of Care Code Tele Est Pt Level 3 (18732) Diagnoses Renal stones N20.0 Hypercalciuria R82.994
== END 2024-08-16 14:50 | disposition home or self-care (01) ==
LOC: HO.HUSH 13:41
PROVIDERS: PCP Internal Medicine; Visit Provider Urology
DX: N20.0 Calculus of kidney (principal); R82.994 Hypercalciuria
CPT/HCPCS: 99213

== ENCOUNTER 2024-08-19 08:36 | Outpatient (AMB) | payer OTHER, SELFPAY ==
--- NOTE | 2024-08-19 08:49 | A.SPINEOV_ITS ---
Vital Signs 08/19/24 08:59 Height 5 ft 8 in Weight 239 lb BMI 36.3 Intake Visit Reasons: Back pain Intake Note: Mr. Gonzalez is here today c/o numbness of the legs & weakness. Trouble Locater Required: No Allergies seafood Allergy (Intermediate, Verified 08/19/24 09:00) Nausea Iodinated Contrast Media [IV CONTRAST] Adverse Reaction (Severe, Verified 08/19/24 09:00) NAUSEA/VOMITING FROM IV DYE Physical Exam Vital Signs: BMI result Body Mass Index 36.3 Assessment & Plan Assessment & Plan (1) Spinal stenosis: Code(s): M48.00 - Spinal stenosis, site unspecified Category: Medical Plan Dear Dr Garcia, Thank you for referring Mr Gonzalez to our office today. He is a 53-year-old male presents to the office today for evaluation of a cramping with feelings of weakness in his legs with tingling and numbness that is been going on now for about 8 months. He for number of years he has had cramping in his legs with walking that was very manageable up until about December of this year when he noticed an increase in the amount of discomfort with walking and standing. The pain will radiate from his low back going all the way down through his anterior thighs, posterior thighs, calves and even into the bottom of his feet sometimes. He also noticed back pain in the center of his back radiating out to both sides. As the symptoms got progressively worse he started to notice feelings of cramping and numbness in his legs even at nighttime. It was thought that this might have been related to a statin so he was taken off this but the symptoms did not improve. He was ultimately sent to physical therapy and after just a few sessions, his therapist felt that this was not going to be helpful for him any longer and discharged him. He was sent back for follow-up to discuss possible other sources for the symptoms and ultimately had an MRI showing severe stenosis at L3-4 as well as a disc herniation at L4-5. He is referred to us for an evaluation. He has no problem with his bladder other than urgency, no incontinence. No trouble with erections or cauda equina symptoms. He has noticed difficulty when he is trying to get up off the floor when he is kneeling. 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 He is concerned because the symptoms have been getting steadily worse and now he is starting to worry that he might not even be able to complete simple tasks like going to the grocery store because it just simply hurts too much in his legs are going numb. He has even him symptoms now in the evenings and at night. He can go to sleep but if he tries to roll over in bed the pain will shoot down his legs in his toes will cramp and that wakes him up. Things like ibuprofen and Tylenol simply have not been working. He does not continue to take them out of fear of affects of his kidneys or his liver. PMH: He is diabetic but he is well controlled with his last A1c being around 6. He has a history of kidney stones, hypercalciuria which is well managed now, history of hypertension, diverticulitis, rotator cuff repair, kidney stone shockwave therapy, both knees arthroscopically cleaned up. Denies any problem with his heart, lung, liver, kidney, bleeding disorders, cancer, blood clots, major abdominal surgery. Social hx: He does not smoke, drink or use any recreational drugs Medications: Lisinopril, metformin, baby aspirin, Januvia, indapamide, allopurinol, potassium, multivitamin, Thuy Allergies: Any fish related dyes Physical exam: Awake alert oriented no acute distress, he walks with a cane, has a Trendelenburg gait. His motor exam reveals pain with hip flexion that will give him pain that shoots down his legs into his calves. He has weakness of his quadriceps bilaterally which I would rate as 4-5. He has an absent right patellar reflex, 1+ left patellar reflex. He has absent Achilles reflex. No clonus, no Johansen's sign, upper extremity strength is normal. Imaging review: Lumbar MRI done at [facility] 2023 shows grade 1 spondylolisthesis at L3-4 with moderate to severe central canal stenosis and clumping of the nerve roots, on the left at L4-5 there is a disc herniation causing displacement of the left L5 nerve root. Impression: 53-year-old male presents to the office today for evaluation of chronic cramping in his legs which goes down into his anterior thighs, posterior thighs, calves and into his feet. For few years it was a manageable symptom that was really not all that bothersome sometime around December the symptoms started to escalate and now he has gotten to the point where he is barely able to stand for any length of time or get around the house. It is now starting to bother him even in the evenings and at night when he sleeping. He Will roll over and feel back pain and then it will shoot down his legs and wake him up. The back pain is bothersome, but the leg pain is really the part that is limiting his ability to be functional. He went to a PT place and they turned him away after watching him walk and seeing how much pain he was in. He tried some [id number] medications briefly. He does have weakness in his legs more proximal. Some of it is pain related as it does cause significant pain to shoot down his legs with straight leg raise testing. He also has diminished if not absent reflexes in the patella and Achilles. His MRI showing severe stenosis with a grade 1 spondylolisthesis at L3-4 as well as a disc herniation on the left at L4-5. I sent the patient for flexion-extension x-rays to evaluate signs of instability. There may be some slight movement, but I do not see anything that looks like he is overtly unstable. I will review everything with Dr. Small to see if he thinks this patient's better suited for fusion versus just simple decompression. I will get back with the patient with a final plan. We did briefly discuss both procedures as well as recovery. He has an upcoming EMG next week as well so that should also help shed some light on things. Thank you for allowing us to care for your patient. The total time spent with this visit with this patient was 45 minutes reviewing history, physical exam, lumbar imaging review, and implementation of treatment plan or further diagnostic testing Marco Small MD,PhD [facility] Orders: Orders XR lumbar spine 4V min Today M48.00 - Spinal stenosis, site unspecified Coding Level of Care Code New Pt Level 4 (50602) Diagnoses Spinal stenosis M48.00
[2024-08-19 08:59] VITALS: BMI 36.3
== END 2024-08-19 10:39 | disposition home or self-care (01) ==
PROVIDERS: PCP Internal Medicine; Referring Provider Internal Medicine; Visit Provider Physician Assistant
DX: M48.00 Spinal stenosis, site unspecified (principal)
CPT/HCPCS: 99204

== ENCOUNTER 2024-08-19 08:36 | Outpatient (REF) | payer OTHER, SELFPAY ==
--- NOTE | ~2024-08-19 | XR_ITS ---
EXAMINATION: XR LUMBAR SPINE CLINICAL INFORMATION: Spinal stenosis, site unspecified M48.00. COMPARISON: MR Lumbar spine without contrast 06/29/2024 TECHNIQUE: AP and lateral views with flexion and extension lateral views FINDINGS: Normal vertebral body height. There is a grade 1 anterolisthesis of L3 on L4 measuring 3 to 4 mm without evidence of instability on flexion or extension. Anterior osteophyte formation seen at T12/L1, L3/4 and L4/5. Posterior facet joint arthropathy seen at L3/4 and L4/5 XR/XR lumbar spine 4V min IMPRESSION: 1. Grade 1 anterolisthesis of L3 on L4 without evidence of instability. 2. Multilevel degenerative changes as described above. Electronically signed by: Magan Monaco MD 09/06/2024 11:23 AM SHAYNE AJ
== END 2024-08-19 08:37 | disposition home or self-care (01) ==
LOC: HO.HOSX 08:36
PROVIDERS: PCP Internal Medicine; Referring Provider Internal Medicine; Visit Provider Physician Assistant
DX: M48.00 Spinal stenosis, site unspecified (principal)
CPT/HCPCS: 72110

== ENCOUNTER 2024-08-22 07:26 | Outpatient (REF) | payer OTHER, SELFPAY ==
[2024-08-22 09:36] LABS: Gamma Glutamyl Transpeptidase 43 U/L (11-51)
== END 2024-08-22 07:27 | disposition home or self-care (01) ==
LOC: HO.LAB 07:26
PROVIDERS: PCP Internal Medicine; Visit Provider Student in an Organized Health Care Education/Training Program
DX: R74.8 Abnormal levels of other serum enzymes (principal)
CPT/HCPCS: 36415; 82977

== ENCOUNTER 2024-08-22 07:26 | Outpatient (AMB) | payer OTHER, SELFPAY ==
--- NOTE | 2024-08-22 07:36 | A.OFFVIS_ITS ---
Vital Signs 08/22/24 07:38 Height 5 ft 8 in Weight 244 lb 0.827 oz BMI 37.1 BP 114/70 Blood Pressure Location Lt brachial Position Sitting Pulse 71 Pulse Source Pulse Oximeter Pulse Oximetry (%) 97 Oxygen Delivery Method Room Air Intake Visit Reasons: Myalgia/CM Intake Note: Patient presents today for myalgia follow up. He was last seen in the office on 07/27/[address] Hay. 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 At that time he was establishing care for the evaluation bilateral lower extremity weakness on a background of elevated CK. Today patient returns for follow up after blood work. Has not done EMG as yet. This is scheduled for ThursdayAugust 26. Patient reports feeling overall the same Rheumatologic History: Initial History Several months noticing pain, numbness and tingling, along with altered sensation involving his bilateral lower extremities. He denies overt muscle weakness involving his proximal muscles including his thighs or his shoulders but he does note that he can not do things that he normally does and has to now walk around with a cane. Denies statin use or red yeast rice supplement use. No new medications in the past year. Denies history of Raynaud's. No rashes. No family history of autoimmune disease. No history of exertional shortness of breath. Does not carry a diagnosis of ILD Current Rheumatology Medication(s): [facility] Medical History (Updated 08/05/24 @ 16:02 by Emilio Garcia MD) Spinal stenosis Myalgia Sleep apnea Seasonal allergies Hypercholesterolemia Essential hypertension Diverticulosis large intestine w/o perforation or abscess w/o bleeding Sessile colonic polyp Arthrosis of both acromioclavicular joints Rotator cuff impingement syndrome of right shoulder Rotator cuff impingement syndrome of left shoulder Renal stones Left shoulder pain Class 2 severe obesity with body mass index (BMI) of 35 to 39.9 with serious comorbidity Controlled diabetes mellitus type II without complication Surgical History Hx of shoulder surgery Hx of lithotripsy Hx of cystoscopy Hx of colonoscopy Hx of arthroscopy of knee Family History Father Bleeding disorder Mother No problems noted. Maternal Aunt Cancer Paternal Uncle Diabetes Mother No problems noted. Father No problems noted. 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 Cognitive needs: No Hearing needs: No Vision needs: Yes (Glasses) Review of Systems Const Details: Review of Systems Constitutional: Denies fever, chills, weight loss ENT: Denies vision changes, eye pain or eye redness, dental caries, dry mouth GI: Denies nausea, vomiting, diarrhea, abdominal pain, change in BM Pulm: Denies SOB, POOL, hemoptysis, wheezing Cards: Denies chest pain, palpitations Skin: Denies Raynaud's, rash, nail changes, photosensitivity, GUEST SERVICE AGENT: Denies headaches, weakness, paresthesias, recurrent falls MSK: as per HPI All other systems reviewed and are unremarkable except noted above Physical Exam Vital Signs: Last Vital Signs Pulse 71 08/22/24 07:38 BP 114/70 08/22/24 07:38 Pulse Ox 97 08/22/24 07:38 Oxygen Delivery Method Room Air 08/22/24 07:38 BMI result Body Mass Index 37.1 Physical Examination CONSTITUITIONAL Patient alert and cooperative. Well appearing and in no apparent painful distress HEENT Conjunctiva and sclera clear. ?Pupils equal round and reactive to light. ?No lymphadenopathy. ?Normal dentition. No oral or nasal ulcers noted. No evidence of discoid rash to the magaly of ears CHEST/RESPIRATORY SYSTEM Normal respiratory effort and able to speak in complete sentences. ?Clear to auscultation bilaterally. ?No crackles, rales, rhonchi, wheezes heard. CARDIAC SYSTEM Regular rate and rhythm. ?S1 and S2 heard no murmurs. ?Radial pulses intact bilaterally MSK Hands: ?Good seismic computer strength bilaterally - 5/5. ?No deformities noted. ?No synovitis noted to the MCPs, PIPs or DIPs. ?No tenderness to palpation of these joints. Wrists: ?Full range of motion at the wrists without pain. ?No tenderness to palpation or synovitis noted to the wrists. Elbows: Full range of motion without pain. No tenderness, weakness, swelling, increased warmth or erythema. Shoulders: Full range of motion without pain. No tenderness, weakness, swelling, increased warmth or erythema. Hips: Full range of motion without pain. Hip bursa: No tenderness to palpation Knees: ?Full range of motion. ?No tenderness, swelling, increased warmth or erythema.?No effusion or crepitations Ankles: Full range of motion. ?No tenderness, swelling, increased warmth or erythema.? Feet: ?Negative squeeze test. ?No tenderness to palpation or swelling of the MTPs. Tender points:??No tenderness to palpation of the neck, shoulders, chest, elbows, hips, buttocks or knees. Right Left Neck Flexion 5 Shoulder abduction 5 4+ Shoulder adduction 5 5 Elbow flexion 5 5 Elbow extension 5 5 Wrist flexion 5 5 Wrist extension 5 5 Chaser Apprentice strength 5 5 Hip flexion 5 5 Knee flexion 4+ 4+ Knee extension 5 5 Ankle dosiflexion 5 5 Ankle plantarflexion 5 5 Toe extension 5 5 SKIN Scaling rashes noted to palmar surface of hands left more than right Results Reviewed Results Reviewed: Laboratory Tests 07/27/24 12:10 WBC 6.7 RBC 4.91 Hgb 14.5 Hct 42.1 Plt Count 211 ESR 5 Sodium 136 Potassium 3.9 Chloride 100 Carbon Dioxide 27 BUN 12 Creatinine 1.04 AST 53 H ALT 100 H Alkaline Phosphatase 54 Total Creatine Kinase 507 H C-Reactive Protein < 0.04 Aldolase 11.2 H MARCIA Screen NEGATIVE MARCIN-1 Antibody <11 EJ Antibody <11 OJ Antibody <11 Mi-2-Alpha Ab <11 Mi-2-Beta Ab <11 NXP-2 Ab <11 PL-7 Antibody <11 PL-12 Antibody <11 SRP Ab <11 MDA5 Ab <11 Myos P155/140 TIF1-g Ab <11 Sm (Pearson) Antibody <1.0 NEG SM/THERAPEUTIC CONSULTANT IgG Antibody <1.0 NEG HMGCR IgG Antibody <2 NT5C1A IgG Antibody <5 MRI L Spine 06/29/24 IMPRESSION: Left subarticular and foraminal broad-based disc herniation at L4-5 compressing the left L5 nerve roots. Grade 1 anterolisthesis L3-4 on a degenerative basis resulting in central spinal canal and bilateral neuroforamina stenosis encroaching the neural elements. Assessment & Plan Assessment & Plan (1) Myalgia: Code(s): M79.10 - Myalgia, unspecified site Category: Medical Plan: #Myalgia with elevated CK and Aldolase Myositis extended panel negative Patient is still with lower extremity weakness Awaiting EMG Still currently no definitive diagnosis with respect to an autoimmune related d isease Of note his L-spine did show L5 compression which could potentially explain his symptoms however it would not fully expand his elevated aldolase and CK. Plan - await EMG - check GGT - RTC 1 month Plan I spent 20 minutes reviewing the record and labs, seeing the patient, discussing the treatment plan and documenting in the medical record ? Orders: Orders Gamma Glutamyl Transpeptidase Today R74.8 - Abnormal levels of other serum enzymes Coding Level of Care Code Est Pt Level 3 (96586) Complex EM visit Add On G2211 Diagnoses Myalgia M79.10
[2024-08-22 07:38] VITALS: BP 114/70; PULSE 71; O2SAT 97; BMI 37.1
== END 2024-08-22 08:08 | disposition home or self-care (01) ==
PROVIDERS: PCP Internal Medicine; Visit Provider Student in an Organized Health Care Education/Training Program
DX: M79.10 Myalgia, unspecified site (principal)
CPT/HCPCS: 99213; G2211

== ENCOUNTER 2024-08-26 12:31 | Outpatient (REF) | payer OTHER, SELFPAY ==
--- NOTE | 2024-08-26 12:40 | EMG_ITS ---
Chief complaint: 3 years of bilateral leg pain and numbness, worsening in the last few months. Initially seen by Rheumatology for suspected myalgia. In the interim, seen by neuro spine and now scheduled for surgery in September. History of diabetes. 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 Hay Procedure done: Bilateral lower extremity NCS/EMG Precautions and/or limitations: None The limb temperature was monitored continuously and remained between 32-36 degrees C during the performance of the NCS. Nerve Conduction Studies Anti Sensory Summary Table ?Stim Site NR Onset (ms) Norm Onset (ms) Peak (ms) Norm Peak (ms) O-P Amp (?V) Norm O-P Amp Site1 Site2 Delta-0 (ms) Dist (cm) Aguilar (m/s) Norm Aguilar (m/s) Left Sural Anti Sensory (Lat Mall) Calf ? 2.3 3.3 <4.0 22.7 >5.0 Calf Lat Mall 2.3 14.0 61 Right Sural Anti Sensory (Lat Mall) Calf ? 2.9 3.3 <4.0 6.2 >5.0 Calf Lat Mall 2.9 14.0 48 Motor Summary Table ?Stim Site NR Onset (ms) Norm Onset (ms) O-P Amp (mV) Norm O-P Amp iAmp (mV) Amp (1st) (%) Site1 Site2 Delta-0 (ms) Dist (cm) Aguilar (m/s) Norm Aguilar (m/s) Right Peroneal Motor (Ext Dig Brev) Ankle ? 3.9 <4.0 9.9 >2.5 12.3 100.0 Ankle Ext Dig Brev 3.9 0.0 B Fib ? 10.5 7.6 9.5 76.8 B Fib Ankle 6.6 31.5 48 >40 Poplt ? 11.4 7.1 8.9 71.7 Poplt B Fib 0.9 4.0 44 >40 Left Tibial Motor (Abd Cadena Brev) Ankle ? 3.0 <5 2.7 >2.5 3.0 100.0 Ankle Abd Cadena Brev 3.0 0.0 Knee ? 13.6 2.3 2.7 85.2 Knee Ankle 10.6 40.0 38 >40 Right Tibial Motor (Abd Cadena Brev) Ankle ? 3.4 <5 4.2 >2.5 5.7 100.0 Ankle Abd Cadena Brev 3.4 0.0 Knee ? 12.6 4.0 4.9 95.2 Knee Ankle 9.2 42.0 46 >40 EMG ?Side Muscle Nerve Root Ins Act Fibs Psw Amp Dur Poly Recrt Int Pat Comment Right AbdHallucis MedPlantar S1-2 Incr 2+ 2+ Nml Nml 0 Nml Complete Right AntTibialis Dp Br Peron L4-5 Nml Nml Nml Nml Nml 0 Nml Complete Right PostTibialis Tibial L5, S1 Incr 1+ 1+ Nml Nml 0 Nml Complete Right MedGastroc Tibial S1-2 Incr 1+ 1+ Nml Nml 0 Nml Complete Right VastusMed Femoral L2-4 Nml Nml Nml Nml Nml 0 Nml Complete Left AbdHallucis MedPlantar S1-2 Incr 1+ 1+ Nml Nml 0 Nml Complete Left AntTibialis Dp Br Peron L4-5 Nml Nml Nml Nml Nml 0 Nml Complete Left PostTibialis Tibial L5, S1 Nml Nml Nml Nml Nml 0 Nml Complete Left MedGastroc Tibial S1-2 Incr 1+ 1+ Nml Incr 1+ Reduced Complete Left VastusMed Femoral L2-4 Nml Nml Nml Nml Nml 0 Nml Complete Paraspinal EMG ?Side Muscle Nerve Root Ins Act Fibs Psw Comment Right Lumbar Upper Rami Nml Nml Nml Right Lumbar Mid Rami Nml Nml Nml Right Lumbar Lower Rami Nml Nml Nml Left Lumbar Upper Rami Nml Nml Nml Left Lumbar Mid Rami Nml Nml Nml Left Lumbar Lower Rami Incr 1+ 1+ FINDINGS: Left tibial nerve showed normal distal latency, normal but smaller amplitude compared to right and slow conduction velocity. All other nerves tested were within normal. Concentric needle EMG was performed in selected muscles of the bilateral lower extremity and lumbar paraspinals. Study revealed signs of electric abnormalities as shown in the table above. Right AH showed increased insertional activity, +2 PSWs and fibrillations. Right medial gastrocnemius and posterior tibialis showed increased insertional activity, PSWs and fibrillations. Left medial gastrocnemius showed increased insertional activity, PSWs and fibrillations, reduced recruitment and increased duration. Left AH showed increased insertional activity, PSWs and fibrillations. Left lower lumbar paraspinals showed increased insertional activity, PSWs and fibrillations. No myopathic looking units seen. IMPRESSION: 1. This is an abnormal study. 2. There is electrodiagnostic evidence for bilateral L5 subacute/chronic radiculopathy. Active denervation seen on left side. 3. There is no electrodiagnostic evidence for peroneal neuropathy, tibial neuropathy. lumbar radiculopathy, myopathy, or peripheral neuropathy. Thank you for your kind referral. Honey Wakefield MD, ALLYSON Board Certified, [place] [employer] and [employer] (ABPMR) Board Certified, [place] Board [employer] Electrodiagnostic [employer] (ABEM) CODIN [id number] x 2 MTDD
== END 2024-08-26 12:32 | disposition home or self-care (01) ==
LOC: HO.NEURO 12:31
PROVIDERS: PCP Internal Medicine; Visit Provider Student in an Organized Health Care Education/Training Program
DX: M79.10 Myalgia, unspecified site (principal); M79.605 Pain in left leg; M79.604 Pain in right leg; R20.0 Anesthesia of skin
CPT/HCPCS: 95886; 95909

== ENCOUNTER → 2024-08-26 12:40 | Outpatient (BNV) | payer OTHER, SELFPAY | PROVIDERS: PCP Internal Medicine; Visit Provider Physical Medicine & Rehabilitation | DX: M54.16 Radiculopathy, lumbar region (principal) | CPT/HCPCS: 95886; 95909 ==

== ENCOUNTER 2024-09-15 13:56 | Outpatient (AMB) | payer OTHER, SELFPAY ==
--- NOTE | 2024-09-15 14:04 | MHC.PC.OV ---
Vital Signs 09/15/24 14:06 Height 5 ft 8 in Weight 240 lb 8 oz BMI 36.6 BP 130/70 Blood Pressure Location Lt brachial Position Sitting Pulse 73 Pulse Source Pulse Oximeter Pulse Oximetry (%) 96 Oxygen Delivery Method Room Air Intake Visit Reasons: 6mth f/u Intake Note: Patient is here to follow up on DM, HTN, Hypercholesterolemia. Structural Technician Required: No Reimbursement Rep: Not Required per policy Accompanied by: Self / Same As Patient Allergies seafood Allergy (Intermediate, Verified 09/15/24 14:06) Nausea Iodinated Contrast Media [IV CONTRAST] Adverse Reaction (Severe, Verified 09/15/24 14:06) NAUSEA/VOMITING FROM IV DYE Tobacco use date assessed: 09/15/24 Dental Screening Dental Screen Date: 09/15/24 Did you have a dental visit in the last 12 months?: Yes Did you have a dental problem in the last 6 months where you did not have access to dental care?: No Was dental information given to patient?: Patient has dentist [facility] Medical History (Updated 08/05/24 @ 16:02 by Emilio Garcia MD) Spinal stenosis Myalgia Sleep apnea Seasonal allergies Hypercholesterolemia Essential hypertension Diverticulosis large intestine w/o perforation or abscess w/o bleeding Sessile colonic polyp Arthrosis of both acromioclavicular joints Rotator cuff impingement syndrome of right shoulder Rotator cuff impingement syndrome of left shoulder Renal stones Left shoulder pain Class 2 severe obesity with body mass index (BMI) of 35 to 39.9 with serious comorbidity Controlled diabetes mellitus type II without complication Surgical History Hx of shoulder surgery Hx of lithotripsy Hx of cystoscopy Hx of colonoscopy Hx of arthroscopy of knee Family History Father Bleeding disorder Mother No problems noted. Maternal Aunt Cancer Paternal Uncle Diabetes Mother No problems noted. Father No problems noted. 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 1. Little interest or pleasure in doing things: not at all 2. Feeling down, depressed, or hopeless: not at all 3. Trouble falling or staying asleep, or sleeping too much: not at all 4. Feeling tired or having little energy: not at all 5. Poor appetite or overeating: not at all 6. Feeling bad about yourself - or that you are a failure or have let yourself or your family down: not at all 7. Trouble concentrating on things, such as reading the newspaper or watching television: not at all 8. Moving or speaking so slowly that other people could have noticed. Or the opposite - being so fidgety or restless that you have been moving around a lot more than usual: not at all 9. Thoughts that you would be better off or of hurting yourself in some way: not at all Total score: 0 Depression Screening Interpretation: Negative Depression Screening Done: Yes Source: Developed by Drs. Kelton Delaney, Marija Arnold, Deepak Harmon and colleagues, with an educational blaze from [employer]. Thrive Questionnaire Date Thrive assessed: 09/15/24 I am a: Patient What is your living situation today?: I have a steady place to live Within the past 12 months, did the food you bought not last and you didn't have the money to get more?: Never true Within the past 12 months, did you worry whether your food would run out before you got money to buy more?: Never true Do you have trouble paying for medicines?: No Do you have trouble getting transportation to medical appointments?: No Do you have trouble paying your heating and electricity bill?: No Do you have trouble taking care of your child, family member or friend?: No Do you have trouble with day-to-day activities such as bathing, preparing meals, shopping, managing finances, etc.?: No Are you currently unemployed and looking for a job?: Yes Are you interested in more education?: No Currently or been in a relationship where the following occur: No concerns reported THRIVE Score: 0 AUDIT C Alcohol Use Questionnaire (AUDIT-C) 1. How often do you have a drink containing alcohol?: Monthly or less 2. How many drinks containing alcohol do you have on a typical day when you are drinking?: 1 or 2 3. How often do you have six or more drinks on one occasion?: Never Total Score: 1 EDE-7 AMB Questionnaire EDE-7 Date EDE - 7 assessed: 09/15/24 Feeling nervous, anxious, or on edge: 0 = Not at all Not being able to stop or control worryin = Not at all Worrying too much about different things: 0 = Not at all Trouble relaxin = Not at all Being so restless that it is hard to sit still: 0 = Not at all Becoming easily annoyed or irritable: 0 = Not at all Feeling afraid as if something awful might happen: 0 = Not at all Total EDE-7 score (0-4 normal; 5-9 mild; 10-14 moderate; 15-21 severe): 0 Source: Developed by Drs. Kelton Delaney, Marija Arnold, Deepak Harmon and colleagues, with an educational blaze from [employer]. Physical exam (Primary Care) Vital Signs: Last Vital Signs Pulse 73 09/15/24 14:06 BP 130/70 09/15/24 14:06 Pulse Ox 96 09/15/24 14:06 Oxygen Delivery Method Room Air 09/15/24 14:06 BMI result Body Mass Index 36.6 Tobacco/Smoking Status: Tobacco use Status Tobacco use date assessed 09/15/24 09/15/24 14:13 Patient Tobacco Use Status Former Tobacco user 09/15/24 14:13 Tobacco use type Cigar 09/15/24 14:13 e-Cigarette/Vaping Use Never Used 09/15/24 14:13 PHQ-9: PHQ-9 Score PHQ-9: Total score 0 09/15/24 14:13 Depression Screening Interpretation: Negative Thrive Assessment: Date of Thrive Assessment Date Thrive assessed 09/15/24 09/15/24 14:13 Currently or been in a relationship where the following occur: No concerns reported Results AMB Hemoglobin A1c AMB Hemoglobin A1c 6.8 % Last Edit by KOBI Vasquez on 09/15/24 14:17 Results Reviewed Results Reviewed: Laboratory Last Values Hgb A1c (Clinic) 6.8 % (4.0-6.0) H 09/15/24 14:03 Coding Level of Care Code Est Pt Level 4 (86177) Complex EM visit Add On G2211 Diagnoses Spinal stenosis M48.00 Assessment & Plan Assessment & Plan (1) Spinal stenosis: Code(s): M48.00 - Spinal stenosis, site unspecified Category: Medical Plan: History of Present Illness The patient is a 53-year-old male presenting with lumbar spinal stenosis. In June, he experienced difficulty walking, climbing, and additional challenges related to physical mobility. An MRI confirmed stenosis. Consultation with a neurosurgeon identified intervertebral disc displacement contributing to the condition. Subsequent x-rays and consult with orthopedic specialists considered lumbar fusion versus minimally invasive procedures. The current plan involves a scheduled surgical laminotomy on the L3-L4 and L4-L5, anticipated to alleviate spinal pressure. The patient also consulted a cashiers supervisor who conducted extensive bloodwork; findings were inconclusive, offering no alternative diagnosis. Polyneuropathy was evaluated using electromyography (EMG) testing on August 26, which returned negative, unrelated to spinal issues. The patient is managing Type 2 Diabetes Mellitus with metformin and sitagliptin (Januvia), maintaining an A1c of 6.8. Symptomatically, the patient reports alternating experiences of better and worse days, employing a cane for ambulation due to leg pain, which is exacerbated by prolonged standing. Social History - Employed full-time, with workplace accommodations for mobility limitations. - Requires use of a cane consistently for ambulation and balance. - Reports fluctuating capacity for tasks at home due to pain exacerbations. Review of Systems - Musculoskeletal: Reports using a cane due to difficulty standing and walking. - Endocrine: Reports diabetes controlled with medications. Physical Exam General: Appearance normal, both eyes and all related structures Nutritional Appearance: Well nourished Orientation/consciousness: Patient oriented x3 Limitations: Difficulty walking, uses a cane all the time Head: Normal to inspection Neck: Normal visual inspection Chest: Normal palpation of entire chest wall Respiratory: Normal respiratory effort Neurology: Patient oriented x3 Results - Labs: A1c at 6.8%, multiple blood tests with no significant findings. - Tests and Diagnostics: MRI indicating lumbar stenosis; EMG negative for significant polyneuropathy findings. Plan - Proceed with lumbar laminotomy scheduled for September 05 to address lumbar stenosis. - Continue current diabetes mellitus management with metformin and sitagliptin. - Follow-up with neurologist and discuss any further symptoms or issues post-operatively. - Ensure postoperative monitoring for possible complications or symptom relief concerning lumbar issues. Patient was informed and verbally consented to the use of an ambient scribe for clinic note documentation during this visit. Discussion Notes In our discussion, I reviewed the patient's spinal condition, detailing lumbar stenosis and the displaced disc's contribution to his symptoms. We explored surgical options, with emphasis on the proposed laminotomy's potential to relieve symptoms. The patient understands the procedural risks and expected improvement. We also covered diabetes management, reinforcing the importance of maintaining current therapeutic regimes to control his blood glucose levels. Anticipatory guidance for postoperative care and the necessity of follow-up with neurology were emphasized. The patient was advised on the importance of mobility as tolerated using the cane and to continue workplace adjustments to minimize exacerbations of pain. Patient Instructions - Undergo scheduled laminotomy on September 05 as planned. - Continue diabetes medication as prescribed. - Utilize cane for mobility and implement rest breaks as needed. - Follow-up appointment scheduled for discussion of post-surgery progress. - Monitor and report any adverse symptoms post-operatively to healthcare provider. - Contact healthcare provider for medication refills as needed. Orders: Orders AMB Hemoglobin A1c 09/15/24 E11.9 - Type 2 diabetes mellitus without complications Medications: Refilled metformin 1,000 mg PO BID 180 tabs 1RF
[2024-09-15 14:06] VITALS: BP 130/70; PULSE 73; O2SAT 96; BMI 36.6
== END 2024-09-15 14:34 | disposition home or self-care (01) ==
PROVIDERS: PCP Internal Medicine; Visit Provider Internal Medicine
DX: E11.9 Type 2 diabetes mellitus without complications (principal)

== ENCOUNTER → 2024-09-15 13:56 | Outpatient (BNVA) | payer OTHER, SELFPAY | PROVIDERS: PCP Internal Medicine; Visit Provider Internal Medicine | DX: M48.00 Spinal stenosis, site unspecified (principal); E11.9 Type 2 diabetes mellitus without complications; I10 Essential (primary) hypertension; E78.00 Pure hypercholesterolemia, unspecified | CPT/HCPCS: 83036; 96127 ==

== ENCOUNTER 2024-09-27 07:24 | Outpatient (AMB) | payer OTHER, SELFPAY ==
--- NOTE | 2024-09-27 07:31 | MHC.OFFVIS ---
Vital Signs 09/27/24 07:35 Height 5 ft 8 in Weight 245 lb 13.047 oz BMI 37.4 BP 124/70 Blood Pressure Location Lt brachial Position Sitting Pulse 79 Pulse Source Pulse Oximeter Pulse Oximetry (%) 96 Oxygen Delivery Method Room Air Intake Visit Reasons: follow up Intake Note: Patient presents for follow up. 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 At that time he was following up with me for blood work done after his initial visit. Autoimmune antibodies for dermatomyositis, polymyositis, immune mediated myositis and inclusion body myositis were negative. He continued to have persistent elevations in his CK as well as his aldolase. A GGT was checked and this was normal indicating that his liver enzyme elevations are coming from muscle. L-spine MRI June 2024 showed disc herniation compressing L5 nerve roots. EMG confirmed L5 nerve root radiculopathy. Today patient returns for follow up. Patient states that he fell off his bed 2 nights ago. Hit his head. Denied any loss of consciousness. Otherwise his weakness is stable Rheumatologic History: Muscle weakness and elevated enzymes are being attributed to his L5 nerve root compression. Initial History Several months noticing pain, numbness and tingling, along with altered sensation involving his bilateral lower extremities. He denies overt muscle weakness involving his proximal muscles including his thighs or his shoulders but he does note that he can not do things that he normally does and has to now walk around with a cane. Denies statin use or red yeast rice supplement use. No new medications in the past year. Denies history of Raynaud's. No rashes. No family history of autoimmune disease. No history of exertional shortness of breath. Does not carry a diagnosis of ILD Current Rheumatology Medication(s): [facility] Medical History (Updated 09/27/24 @ 07:57 by Maryann Hay MD) Lumbosacral radiculopathy at L5 Chest pain Spinal stenosis Myalgia Sleep apnea Seasonal allergies Hypercholesterolemia Essential hypertension Diverticulosis large intestine w/o perforation or abscess w/o bleeding Sessile colonic polyp Arthrosis of both acromioclavicular joints Rotator cuff impingement syndrome of right shoulder Rotator cuff impingement syndrome of left shoulder Renal stones Left shoulder pain Class 2 severe obesity with body mass index (BMI) of 35 to 39.9 with serious comorbidity Controlled diabetes mellitus type II without complication Surgical History Hx of shoulder surgery Hx of lithotripsy Hx of cystoscopy Hx of colonoscopy Hx of arthroscopy of knee Family History Father Bleeding disorder Mother No problems noted. Maternal Aunt Cancer Paternal Uncle Diabetes Mother No problems noted. Father No problems noted. 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 (cane) Hearing needs: No Vision needs: Yes (Glasses) Review of Systems Const Details: Review of Systems Constitutional: Denies fever, chills, weight loss ENT: Denies vision changes, eye pain or eye redness, dental caries, dry mouth GI: Denies nausea, vomiting, diarrhea, abdominal pain, change in BM Pulm: Denies SOB, POOL, hemoptysis, wheezing Cards: Denies chest pain, palpitations Skin: Denies Raynaud's, rash, nail changes, photosensitivity, SEAM SEWER: Denies headaches, weakness, paresthesias, recurrent falls MSK: as per HPI All other systems reviewed and are unremarkable except noted above Physical Exam Vital Signs: Last Vital Signs Pulse 79 09/27/24 07:35 BP 124/70 09/27/24 07:35 Pulse Ox 96 09/27/24 07:35 Oxygen Delivery Method Room Air 09/27/24 07:35 BMI result Body Mass Index 37.4 Physical Examination CONSTITUITIONAL Patient alert and cooperative. Well appearing and in no apparent painful distress HEENT Conjunctiva and sclera clear. ?Pupils equal round and reactive to light. ?No lymphadenopathy. ?Normal dentition. No oral or nasal ulcers noted. No evidence of discoid rash to the magaly of ears CHEST/RESPIRATORY SYSTEM Normal respiratory effort and able to speak in complete sentences. ?Clear to auscultation bilaterally. ?No crackles, rales, rhonchi, wheezes heard. CARDIAC SYSTEM Regular rate and rhythm. ?S1 and S2 heard no murmurs. 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 ?No deformities noted. ?No synovitis noted to the MCPs, PIPs or DIPs. ?No tenderness to palpation of these joints. Wrists: ?Full range of motion at the wrists without pain. ?No tenderness to palpation or synovitis noted to the wrists. Elbows: Full range of motion without pain. No tenderness, weakness, swelling, increased warmth or erythema. Shoulders: Full range of motion without pain. No tenderness, weakness, swelling, increased warmth or erythema. Hips: Full range of motion without pain. Hip bursa: No tenderness to palpation Knees: ?Full range of motion. ?No tenderness, swelling, increased warmth or erythema.?No effusion or crepitations Ankles: Full range of motion. ?No tenderness, swelling, increased warmth or erythema.? Feet: ?Negative squeeze test. ?No tenderness to palpation or swelling of the MTPs. Tender points:??No tenderness to palpation of the neck, shoulders, chest, elbows, hips, buttocks or knees. Right Left Neck Flexion 5 Shoulder abduction 5 5 Shoulder adduction 5 5 Elbow flexion 5 5 Elbow extension 5 5 Wrist flexion 5 5 Wrist extension 5 5 [place] Upholsterer strength 5 5 Hip flexion 5 5 Knee flexion 4+ 4+ Knee extension 5 5 Ankle dosiflexion 5 5 Ankle plantarflexion 5 5 SKIN Scaling rashes noted to palmar surface of hands left more than right Results Reviewed Results Reviewed: Laboratory Tests 07/27/24 12:10 WBC 6.7 RBC 4.91 Hgb 14.5 Hct 42.1 Plt Count 211 ESR 5 Sodium 136 Potassium 3.9 Chloride 100 Carbon Dioxide 27 BUN 12 Creatinine 1.04 AST 53 H ALT 100 H Alkaline Phosphatase 54 Total Creatine Kinase 507 H C-Reactive Protein < 0.04 Aldolase 11.2 H MARCIA Screen NEGATIVE MARCIN-1 Antibody <11 EJ Antibody <11 OJ Antibody <11 Mi-2-Alpha Ab <11 Mi-2-Beta Ab <11 NXP-2 Ab <11 PL-7 Antibody <11 PL-12 Antibody <11 SRP Ab <11 MDA5 Ab <11 Myos P155/140 TIF1-g Ab <11 Sm (Pearson) Antibody <1.0 NEG SM/STUDENT ASSISTANT IgG Antibody <1.0 NEG HMGCR IgG Antibody <2 NT5C1A IgG Antibody <5 Laboratory Tests 08/22/24 08:33 GGT 43 MRI L Spine 06/29/24 IMPRESSION: Left subarticular and foraminal broad-based disc herniation at L4-5 compressing the left L5 nerve roots. Grade 1 anterolisthesis L3-4 on a degenerative basis resulting in central spinal canal and bilateral neuroforamina stenosis encroaching the neural elements. EMG 08/2024 FINDINGS: Left tibial nerve showed normal distal latency, normal but smaller amplitude compared to right and slow conduction velocity. All other nerves tested were within normal. Concentric needle EMG was performed in selected muscles of the bilateral lower extremity and lumbar paraspinals. Study revealed signs of electric abnormalities as shown in the table above. Right AH showed increased insertional activity, +2 PSWs and fibrillations. Right medial gastrocnemius and posterior tibialis showed increased insertional activity, PSWs and fibrillations. Left medial gastrocnemius showed increased insertional activity, PSWs and fibrillations, reduced recruitment and increased duration. Left AH showed increased insertional activity, PSWs and fibrillations. Left lower lumbar paraspinals showed increased insertional activity, PSWs and fibrillations. No myopathic looking units seen. IMPRESSION: 1. This is an abnormal study. 2. There is electrodiagnostic evidence for bilateral L5 subacute/chronic radiculopathy. Active denervation seen on left side. 3. There is no electrodiagnostic evidence for peroneal neuropathy, tibial neuropathy. lumbar radiculopathy, myopathy, or peripheral neuropathy. Assessment & Plan Assessment & Plan (1) Lumbosacral radiculopathy at L5: Code(s): M54.17 - Radiculopathy, lumbosacral region Category: Medical Plan: #Disc Herniation with L5 radiculopathy Patient with MRI confirming disc herniation and L5 nerve root compression With nerve root compression there is disruption in the normal continuous nerve stimulation that goes to muscles. This can cause muscle atrophy and concomitant weakness. He is planned to do spinal surgery next week. We will see him again in 8 months to recheck his blood work. Patient does not have a myopathy at this time based on the EMG but for completion we will recheck his blood work prior to his next visit. Plan - No further work up for myositis - CK, LFTs, Aldose in 8 months - RTC 8 months (2) Elevated CK: Code(s): R74.8 - Abnormal levels of other serum enzymes Plan: #Elevated CK The differentials for an elevated CK are broad. The concern was this patient may have an underlying myositis. However his antibodies have been negative and his EMG does not show a myopathic process. He does have L5 radiculopathy which is likely the cause of his weakness. In the normal muscle the nerves send ?nutrient? signals to muscles which helps to keep them alive and functioning. In the absence of these nutrient signals there can be muscle atrophy and cell . This muscle atrophy and cell can lead to a leakage of muscle enzymes which is what we are seeing in his blood work. I do not believe this is related to an underlying myositis. Plan I spent 20 minutes reviewing the record and labs, taking a history, examining the patient, discussing the treatment plan and documenting in the medical record Orders: Orders Aldolase 8 Months R74.8 - Abnormal levels of other serum enzymes Comprehensive Met. Panel 8 Months R74.8 - Abnormal levels of other serum enzymes CK, Total+Isoenzymes, Serum 8 Months R74.8 - Abnormal levels of other serum enzymes Coding Level of Care Code Est Pt Level 3 (46939) Complex EM visit Add On G2211 Diagnoses Lumbosacral radiculopathy at L5 M54.17 Elevated CK R74.8
[2024-09-27 07:35] VITALS: BP 124/70; PULSE 79; O2SAT 96; BMI 37.4
== END 2024-09-27 07:52 | disposition home or self-care (01) ==
PROVIDERS: PCP Internal Medicine; Visit Provider Student in an Organized Health Care Education/Training Program
DX: M54.17 Radiculopathy, lumbosacral region (principal); R74.8 Abnormal levels of other serum enzymes
CPT/HCPCS: 99213; G2211

== ENCOUNTER → 2024-09-27 07:24 | Outpatient (BNVA) | payer OTHER, SELFPAY | PROVIDERS: PCP Internal Medicine; Visit Provider Student in an Organized Health Care Education/Training Program ==

== ENCOUNTER 2024-10-06 07:44 | Day surgery (SDC) | payer OTHER, SELFPAY ==
--- NOTE | 2024-09-21 13:54 | HO.ANESPROP2 ---
Documented by User: Haven Henriquez NP 09/22/24 12:58 HPI - Anesthesia Eval Consult details Narrative: 53yo M for L3-4 for bilateral decompression (Left Sided Approach), Left L4-5 decompression with discectomy, 10/06/23 s/p multiple ESWL with TIVA 2023 s/p rotator cuff repair 04/2023 with GA-ETT 7.5 Anesthesia Pre-Procedure Meds Is the patient on any of the following meds?: GLP1/DPP4 PMFSH Active Problems Active Problems: All Active Problems Spinal stenosis (Acute) Myalgia (Acute) Tear of right rotator cuff (Acute) AC joint arthropathy (Acute) Superior labrum [id number] (SLAP) tear of right shoulder (Acute) Diverticulosis of colon (Acute) Colon polyps (Acute) Hypercalciuria (Acute) Annual physical exam (Acute) Sessile colonic polyp (Acute) Hypercholesterolemia (Acute) Essential hypertension (Acute) Class 2 severe obesity with body mass index (BMI) of 35 to 39.9 with serious comorbidity (Acute) Rotator cuff impingement syndrome of right shoulder (Acute) Rotator cuff impingement syndrome of left shoulder (Acute) Renal stones (Acute) Controlled diabetes mellitus type II without complication (Acute) Past Medical History Medical History Lumbosacral radiculopathy at L5 Chest pain Spinal stenosis Myalgia Sleep apnea Seasonal allergies Hypercholesterolemia Essential hypertension Diverticulosis large intestine w/o perforation or abscess w/o bleeding Sessile colonic polyp Arthrosis of both acromioclavicular joints Rotator cuff impingement syndrome of right shoulder Rotator cuff impingement syndrome of left shoulder Renal stones Left shoulder pain Class 2 severe obesity with body mass index (BMI) of 35 to 39.9 with serious comorbidity Controlled diabetes mellitus type II without complication Family History Family History Father Bleeding disorder Mother No problems noted. Maternal Aunt Cancer Paternal Uncle Diabetes Mother No problems noted. Father No problems noted. Family history of problems with anesthesia: No Surgical History Surgical History Hx of shoulder surgery Hx of lithotripsy Hx of cystoscopy Hx of colonoscopy Hx of arthroscopy of knee History of Problems with Anesthesia: No Social History Social History Household Members Other:: 1 son Housing: House Are you a primary field care coordinator to a significant other at home: No Do you presently have visiting nurse or other home services: No Alcohol intake: current Alcohol intake frequency: does not drink Patient Tobacco Use Status: Former Tobacco user Tobacco use type: Cigarette Years Smoked: 2 e-Cigarette/Vaping Use: Never Used Second Hand Smoke Exposure: No Use of substances other than those prescribed or required for medical reasons: No Have you been hit, kicked, punched, or otherwise hurt by someone within the past year? 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 (cane) Hearing needs: No Vision needs: Yes (Glasses) Meds Allergies Allergy/AdvReac Type Severity Reaction Status Date / Time seafood Allergy Intermediate Nausea and Verified 10/06/24 07:57 Vomiting Iodinated Contrast Media AdvReac Severe Nausea and Verified 10/06/24 07:57 [IV CONTRAST] Vomiting Home Medications ?Medication ?Instructions ?Recorded ?Confirmed ?Last Taken ?Type fexofenadine 60 mg tablet (Thuy 60 mg PO DAILY PRN seasonal 02/25/21 09/27/24 05/13/23 History Allergy) allergies multivitamin 1 tab PO QAM 12/02/23 09/27/24 Unknown History Lactobacillus acidophilus 250 500 mmu cells PO DAILY 09/22/24 09/27/24 Unknown History million cell capsule (Probiotic Acidophilus) allopurinol 100 mg tablet 100 mg PO QAM 09/22/24 09/27/24 Unknown History aspirin 81 mg tablet,delayed 81 mg PO QAM 09/22/24 10/06/24 09/27/24 History release indapamide 2.5 mg tablet 2.5 mg PO QAM 09/22/24 09/27/24 Unknown History lisinopril 10 mg tablet 10 mg PO QAM 09/22/24 09/27/24 Unknown History sitagliptin phosphate 50 mg tablet 50 mg PO QAM 09/22/24 09/27/24 10/02/24 History (Steve) Exam Pertinent Lab Results Pertinent Lab Results: Laboratory Tests 07/27/24 12:10 WBC 6.7 Hgb 14.5 Hct 42.1 Plt Count 211 Sodium 136 Potassium 3.9 Chloride 100 Carbon Dioxide 27 BUN 12 Creatinine 1.04 Narrative Narrative: EKG 2022 Vent. Rate : 075 BPM Atrial Rate : 075 BPM P-R Int : 136 ms QRS Dur : 092 ms QT Int : 384 ms P-R-T Axes : 051 -05 019 degrees QTc Int : 428 ms Normal sinus rhythm Normal ECG When compared with ECG of 27-JUL-2019 08:09, No significant change was found Assessment and Plan Assessment Anesthesia Assessment: Chart Reviewed Final Anesthetic Review Family History of Problems with Anesthesia: No History of Problems with Anesthesia: No Documented by User: Iraida Elder MD 10/06/24 08:34 [facility] Past Medical History Medical History Lumbosacral radiculopathy at L5 Chest pain Spinal stenosis Myalgia Sleep apnea Seasonal allergies Hypercholesterolemia Essential hypertension Diverticulosis large intestine w/o perforation or abscess w/o bleeding Sessile colonic polyp Arthrosis of both acromioclavicular joints Rotator cuff impingement syndrome of right shoulder Rotator cuff impingement syndrome of left shoulder Renal stones Left shoulder pain Class 2 severe obesity with body mass index (BMI) of 35 to 39.9 with serious comorbidity Controlled diabetes mellitus type II without complication Family History Family History Father Bleeding disorder Mother No problems noted. Maternal Aunt Cancer Paternal Uncle Diabetes Mother No problems noted. Father No problems noted. Surgical History Surgical History Hx of shoulder surgery Hx of lithotripsy Hx of cystoscopy Hx of colonoscopy Hx of arthroscopy of knee Social History Social History Household Members Other:: 1 son Housing: House Are you a primary field care coordinator to a significant other at home: No Do you presently have visiting nurse or other home services: No Alcohol intake: current Alcohol intake frequency: does not drink Patient Tobacco Use Status: Former Tobacco user Tobacco use type: Cigarette Years Smoked: 2 e-Cigarette/Vaping Use: Never Used Second Hand Smoke Exposure: No Use of substances other than those prescribed or required for medical reasons: No Have you been hit, kicked, punched, or otherwise hurt by someone within the past year? 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 (cane) Hearing needs: No Vision needs: Yes (Glasses) Meds Allergies Allergy/AdvReac Type Severity Reaction Status Date / Time seafood Allergy Intermediate Nausea and Verified 10/06/24 07:57 Vomiting Iodinated Contrast Media AdvReac Severe Nausea and Verified 10/06/24 07:57 [IV CONTRAST] Vomiting Home Medications ?Medication ?Instructions ?Recorded ?Confirmed ?Last Taken ?Type fexofenadine 60 mg tablet (Thuy 60 mg PO DAILY PRN seasonal 02/25/21 09/27/24 05/13/23 History Allergy) allergies multivitamin 1 tab PO QAM 12/02/23 09/27/24 Unknown History Lactobacillus acidophilus 250 500 mmu cells PO DAILY 09/22/24 09/27/24 Unknown History million cell capsule (Probiotic Acidophilus) allopurinol 100 mg tablet 100 mg PO QAM 09/22/24 09/27/24 Unknown History aspirin 81 mg tablet,delayed 81 mg PO QAM 09/22/24 10/06/24 09/27/24 History release indapamide 2.5 mg tablet 2.5 mg PO QAM 09/22/24 09/27/24 Unknown History lisinopril 10 mg tablet 10 mg PO QAM 09/22/24 09/27/24 Unknown History sitagliptin phosphate 50 mg tablet 50 mg PO QAM 09/22/24 09/27/24 10/02/24 History (Steve) Exam Airway Mallampati Class: III TM Dist: <=3cm Neck ROM: Full Heart: rrr Lungs: cta Assessment and Plan Assessment Anesthesia Assessment: Anesthesia Plan Discussed Final Anesthetic Review NPO: Yes ASA Class: III Final Preanesthetic Review: No Changes in Pt Med Stat, Meds/Allgs Chart Reviewed, Consent Obtained/Reviewed and Anes Risks/Benef Reviewed Patient Risk: Intermediate Procedure Risk: Intermediate Anesthetic Plan Anesthetic Plan: GA Disposition: Standard PACU
[2024-09-22 08:39] VITALS: BMI 36.5
[2024-10-06] VITALS (8 sets, daily range): BP systolic 112–177; BP diastolic 71–107; PULSE 73–88; RESP 12–17; TEMP 36.2–36.7; O2SAT 95–97
--- NOTE | ~2024-10-06 | FL_ITS ---
EXAMINATION: FL GUIDANCE ONLY HISTORY: L3-4 bilateral decompression COMPARISON: Correlation is made to plain films of the lumbar spine dated 08/19/2024. TECHNIQUE: Fluoroscopy time: Less than 1 minute. Cumulative Dose: 3.95 mGy. DAP: 0.935 uGy-m2 (microgray-meter squared). Images: 1. FINDINGS: A single fluoroscopic spot film of the lumbar spine in the lateral projection demonstrates a probe directed toward the L4-5 intervertebral disc space from a posterior approach. FL/FL guidance in OR IMPRESSION: Fluoroscopy during procedure. Please see procedure report for additional information. Electronically signed by: Kelton Aquino MD 10/07/2024 02:28 PM [facility]
--- NOTE | 2024-10-06 07:10 | MHC.SHP ---
Pre-Procedural Eval Section A - 24 Hr Update-Section A only Date of Service: 10/06/24 The patient is an INPATIENT: No Changes since office visit: No Cold of Flu in the past 2 weeks, No New Medical Problems, No Changes in Medication and No Patient answered all questions The patient has been examined within 24 hours of the surgical procedure. The History & Physical has been completed within 30 days and I have reviewed it.: No Section B - Complete if H&P > 30 days Chief Complaint: Spinal stenosis, site unspecified Allergies: Allergies Allergy/AdvReac Type Severity Reaction Status Date / Time seafood Allergy Intermediate Nausea and Verified 09/27/24 07:34 Vomiting Iodinated Contrast Media AdvReac Severe Nausea and Verified 09/27/24 07:34 [IV CONTRAST] Vomiting Review of Systems Sugical H&P ROS: Negative: Constitution, Cardiovascular, Respiratory, Neurological, Psychiatric, Hem-Onc, Allergic/Immunologic, Gastrointestinal, Genitourinary, Musculoskeletal, Integumentary, Endocrine and Eyes/Ears/Nose/Throat Exam Surgical H&P Exam: Normal: HEENT, Normal: Heart, Normal: Lungs, Normal: Extremities, Normal: Abdomen, Normal: Skin and Normal: Neurological (awake, alert,oriented x 3 ) Plan Diagnosis/Plan: Unchanged left-sided approach L3-4 for bilateral decompression, left L4-5 decompression with diskectomy. I Time Spent With Patient Time: Total time managing care of this patient today ___5_ minutes.
[2024-10-06] MEDS: methocarbamoL 750 MG TABLET PO (08:28)
[2024-10-06] MEDS: Gabapentin 300 MG CAPSULE PO (08:28)
[2024-10-06] MEDS: Lactated Ringers 1,000 ML 100 ML IVCONT (08:28)
[2024-10-06 08:44] LABS: Glucose, Whole Blood 185 mg/dL (60-115)
--- NOTE | 2024-10-06 09:33 | P.DS_ITS ---
DS: Providers Provider Date of Service: 10/06/24 Date of discharge: 10/06/24 Primary care physician: Emilio Garcia MD Admitting clinician: Torres Small DS: Diagnosis Discharge Diagnosis (1) Lumbosacral radiculopathy at L5: Status: Acute DS: Summary Time Attestation Discharge Coordination Time (in mins): 5 Quality: Safe Use of Opioids Does Pt have an Active Cancer Diagnosis on the Problem List?: No Quality: Stroke Does the patient have a stroke diagnosis?: No Physical Exam Vital Signs: Vital Signs: Last Vital Signs Temp 98.0 F 10/06/24 08:54 Pulse 73 10/06/24 08:54 Resp 14 10/06/24 08:54 BP 130/84 10/06/24 08:54 Pulse Ox 96 10/06/24 08:54 O2 Del Method Room Air 10/06/24 08:54 BMI result Body Mass Index 36.5 DS: Data Data Completed and Pending Labs on day of discharge: Laboratory Results - last 24 hr 10/06/24 08:41 POC Glucose 185 H Discharge Plan Discharge Patient Disposition: Home, Self-Care Referrals: Emilio Garcia MD [Primary Care Provider] - 1 Week Discharge Medications: New docusate sodium [Colace] 100 mg capsule 100 mg PO BID Qty: 20 0RF oxycodone 5 mg tablet 5 mg PO Q4H PRN (Reason: pain) Qty: 30 0RF Rx Instructions: Partial Fill upon patient request. No Action (DME) lancets 28 gauge misc See Rx Instructions topical DAILY Qty: 100 2RF Rx Instructions: As directed (DME) FreeStyle Test Strip See Rx Instructions .ROUTE .COMPLEX Qty: 100 1RF Dose Instruction: USE DIRECTED 3 TIMES A DAY Rx Instructions: USE DIRECTED 2 TIMES A DAY (DME) lancets 30 gauge misc See Rx Instructions .Route Qty: 100 3RF Rx Instructions: test 2 times per day multivitamin Tablet 1 tab PO QAM aspirin [Aspirin Low-Strength] 81 mg Tablet,Delayed Release (Dr/Ec) 81 mg PO QAM Probiotic Acidophilus 250 million cell Capsule 500 mmu cells PO DAILY indapamide 2.5 mg tablet 2.5 mg PO QAM allopurinol 100 mg tablet 100 mg PO QAM lisinopril 10 mg tablet 10 mg PO QAM Januvia 50 mg tablet 50 mg PO QAM fexofenadine [Thuy Allergy] 60 mg tablet 60 mg PO DAILY PRN (Reason: seasonal allergies) potassium citrate 10 mEq (1,080 mg) tablet extended release 10 meq PO BID 90 Days Qty: 180 3RF metformin 1,000 mg tablet 1,000 mg PO BID Qty: 180 1RF Discharge Orders: Discharge Order (Routine); Ordered 10/06/24 Ordered By: Marco Mckeon Diet: Advance to usual diet Activity on Discharge: As tolerated Activity Restrictions/Additional Instructions: After your spinal surgery we ask you to observe the following restrictions/guidelines: Activity: It is normal to feel some discomfort as you increase your activity, but that will improve with time. We ask you avoid heavy lifting or acitivities that cause pain. As a general rule, 8lbs is a safe limit for lifting right after surgery. Walk as much as you feel comfortable but not to exhaustion. You will feel extra tired the first few days after surgery. Stay well hydrated. It is OK to walk up and down stairs You may return to driving when you are off narcotics (such as vicodin, oxycodone, dilaudid, etc), and you are back to normal functional capacity. If you have any concerns please check with office before driving. Return to work is specific to each patient and each surgery, so please speak with your doctor/PA at first follow up. Please bring paperwork such as FMLA at that time if you need it filled out. Medications: For optimum pain control, it is best to start with a combination of 500 mg of Tylenol every 4 hours with 600 mg of Motrin every 8 hours, and use narcotics as needed in between for breakthrough pain. We will give you a short supply of narcotics after surgery (usually one weeks worth). If you need more please call the office but do not use more than prescribed. You will need to give our office 48 hours notice if you need narcotics refilled and we do not fill narcotics on weekends or evenings. If you are on a narcotic, it is a good idea to take a stool softener such as colace or senna to avoid constipation If you take blood thinner such as aspirin, Plavix, Coumadin, Effient, Eliquis etc for conditions such as Afib, DVT, Pulmonary embolus, coronary disease, stents etc please speak with your surgeon about specific details as to when you can resume these medications. You can resume NSAIDs on post op day 1 (eg: Motrin, Naproxen, etc). Follow up: Please call the office, , after surgery to arrange a 3 week follow up for wound check. Wound Care: You may remove your dressing on the first day after surgery. ?You may ?leave open to air. Please do not remove the steri strips underneath. they will fall off on their own in one week. IT IS NORMAL FOR THE WOUND TO OOZE OR BE BLOODY FOR A FEW DAYS AFTER SURGERY. ?I F THIS HAPPENS JUST PLACE NEW DRESSING OVER IT TO AVOID STAINING CLOTHES. You may shower on post op day # 1 We ask that you do not let the water soak the wound. If it does get wet, just towel dry lightly. Please do not scrub your incision or place any type of chemical/ointment on the wound. No tub baths, pools or jacuzzis for one month. If you have any leaking or redness from your wound, or fevers, please call office Print Language: Tuvaluan
--- NOTE | 2024-10-06 11:07 | P.OP_ITS ---
Operative Note Operative Note Date of Service: 10/06/24 Narrative: Preoperative Diagnosis: L3-4 and L4-5 spinal stenosis/lateral recess stenosis/neural foraminal stenosis Operation: Bilateral L3-4 Laminotomy, Partial facetectomy and foraminotomy; left L4-5 laminotomy with use of microscope Consent Informed Consent was obtained for this operation. I have explained the nature, purpose and benefits of the operation. I have discussed the risks and benefit of the operation including possible complications or adverse events with patient/family. Alternative(s) were discussed with the patient with their relative benefits and risks as well as the consequences of not accepting the operation were included in obtaining consent. Surgeon: MUNDO HERNANDEZ MD, PHD Procedure Assisted By: Marco Lopez Description of Procedure This patient is suffering from bilateral leg pain. An MRI shows severe spinal stenosis L3-4 bilaterally and L4-5 lateral recess stenosis on the left side with a possible disc herniation. He was offered a decompression of the 2 levels.. The patient was offered a decompression. The procedure complications were explained. The patient was consented. The patient was brought to the operating room and endotracheally intubated. The patient was turned in prone position on the Gonzalo frame. Prep and drape was done followed by timeout. The Physician kindergarten instructional assistant provided access. A mid lumbar incision was made followed by release of the paravertebral muscle bilaterally to expose the [] lamina and facet joints. An intraoperative x-ray was obtained to confirm the correct levels. The x-ray also showed a grade 1 L4-5 spondylolisthesis. The microscope was brought in. I took over the procedure. The high-speed drill was used to do a left L3-4 laminotomy until flavum ligament was reached. A #2 Kerrison was used to expand the laminotomy near flush to the pedicles and to include a partial facetectomy. The flavum ligament was opened and resected with a #3 Kerrison to decompress the underlying thecal sac. The flavum ligament was removed to decompress the lateral recess and the exiting L4 nerve root. The patient was accordingly turned contralaterally. The spinous process was undercut and in this way I was able to reach to the contralateral side to decompress the lateral recess and exiting nerve root. A long nerve hook could be easily passed along the medial side of the pedicles as a sign of adequate decompression. Then attention was turned to the L4-5 level. A left L4-5 hemilaminotomy done. Significant hypertrophied ligament was encountered that was compressing the L5 nerve root in the lateral recess. This was resected and immediately caused a good release of the L5 nerve. A disc bulge was palpated but I did not perform an annulotomy to avoid further instability as the x-ray already showed a grade 1 spondylolisthesis. A nerve hook could be easily passed under the thecal sac and nerve root without resistance. The microscope was removed. Hemostasis was done. The physician kindergarten instructional assistant close the Incision in 2 layers. Steri-Strips were used to approximate incision. An OpSite with Tegaderm was used to cover the incision. All sponge needle counts were correct. Patient was extubated and transported in stable is to recovery room. Anesthesia: General Estimated Blood Loss (ml): 40 mL Complications: None Duration of Surgery: 70 Minutes Postoperative Plan: Discharge to home
[2024-10-06] MEDS: Ondansetron ODT 4 MG TAB.RAPDIS TRANSLINGU (12:29)
== END 2024-10-06 13:00 | disposition home or self-care (01) ==
PROVIDERS: PCP Internal Medicine; Visit Provider Neurological Surgery
PROC: (CPT 63047; principal; 2024-10-06 09:10)
DX: M48.061 Spinal stenosis, lumbar region without neurogenic claudication (principal); M51.16 Intervertebral disc disorders with radiculopathy, lumbar region; M43.16 Spondylolisthesis, lumbar region; E11.9 Type 2 diabetes mellitus without complications; I10 Essential (primary) hypertension; G47.33 Obstructive sleep apnea (adult) (pediatric); Z79.84 Long term (current) use of oral hypoglycemic drugs; Z79.899 Other long term (current) drug therapy; Z79.82 Long term (current) use of aspirin; Z87.891 Personal history of nicotine dependence
CPT/HCPCS: 63047; 63048; 82947; J0131; J0690; J1100; J1885; J2003; J2250; J2405; J2704; J3010

== ENCOUNTER → 2024-10-06 07:44 | Outpatient (BNV) | payer OTHER, SELFPAY | PROVIDERS: PCP Internal Medicine; Visit Provider Neurological Surgery | DX: M48.062 Spinal stenosis, lumbar region with neurogenic claudication (principal) | CPT/HCPCS: 63047; 63048; 99499 ==

== ENCOUNTER 2024-10-27 10:23 | Outpatient (AMB) | payer OTHER, SELFPAY ==
--- NOTE | 2024-10-27 10:34 | HO.SPINEOV ---
Intake Visit Reasons: 1st post op Intake Note: Mr. Gonzalez is here today for his 1st post op. 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 He reports he is very satisfied with the surgery and feels much better than he did preoperatively. The patient reports he is up walking around and completing the majority of his ADLs. He reports that he no longer suffers from the severe cramping with feelings of weakness in his legs with tingling and numbness which he initially presented to our office for. 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 No new neurological deficits. Patient is able to ambulate well, rises from a seated position without difficulty. Incision site is closed, well healing, with no signs of drainage. We will follow-up with the patient in 6 weeks for their 2nd postoperative visit. Rigo Small MD,PhD [facility] Coding Level of Care Code Global (33059) Diagnoses Status post lumbar spine surgery for decompression of spinal cord Z98.890
== END 2024-10-27 11:23 | disposition home or self-care (01) ==
PROVIDERS: PCP Internal Medicine; Visit Provider Physician Assistant
DX: Z98.890 Other specified postprocedural states (principal)
CPT/HCPCS: 99024

== ENCOUNTER 2024-12-08 08:49 | Outpatient (AMB) | payer OTHER, SELFPAY ==
--- NOTE | 2024-12-08 09:00 | A.SPINEOV_ITS ---
Intake Visit Reasons: 2nd post op Intake Note: Mr. Gonzalez is here today for his 2nd post op. 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 Small. After his last appointment he returned to work, which he states has been going very well. If he spends prolonged periods of time standing on his feet he does experience continued cramping in his bilateral lower extremity the following day. However, he is overall very satisfied with the procedure, in his doing much better than he was prior to surgery. No new neurological deficits. The patient ambulates well and rises from a seated position without difficulty. His posterior incision site is closed and well healed. There is no need for continued routine follow up with Trevor. He may need a subsequent work letter in the coming weeks which we will provide to him if needed. Rigo Small MD,PhD [facility] Coding Level of Care Code Global (00469) Diagnoses Status post lumbar spine surgery for decompression of spinal cord Z98.890
== END 2024-12-08 09:09 | disposition home or self-care (01) ==
LOC: HO.HNS 08:50
PROVIDERS: PCP Internal Medicine; Visit Provider Physician Assistant
DX: Z98.890 Other specified postprocedural states (principal)
CPT/HCPCS: 99024

== ENCOUNTER 2024-12-22 08:03 | Outpatient (AMB) | payer OTHER, SELFPAY ==
--- NOTE | 2024-12-22 08:12 | MHC.PC.OV ---
Vital Signs 12/22/24 08:20 Height 5 ft 8 in Weight 242 lb 8 oz BMI 36.9 BP 100/70 Blood Pressure Location Lt brachial Position Sitting Pulse 80 Pulse Source Pulse Oximeter Temp 97.7 F Temp Source Temporal Artery Scan Pulse Oximetry (%) 95 Oxygen Delivery Method Room Air Intake Visit Reasons: 3mth Follow Up - see comments Intake Note: Patient is here to follow up on DM, HTN, Hypercholesterolemia. 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: Not Required per policy Accompanied by: Self / Same As Patient Allergies seafood Allergy (Intermediate, Verified 12/22/24 08:48) Nausea and Vomiting Iodinated Contrast Media [IV CONTRAST] Adverse Reaction (Severe, Verified 12/22/24 08:48) Nausea and Vomiting Medication List - Last Reconciled 12/22/24 by Emilio Garcia MD allopurinol 100 mg PO QAM aspirin 81 mg PO QAM blood sugar diagnostic (FreeStyle Test strips) USE DIRECTED 2 TIMES A DAY docusate sodium (Colace) 100 mg PO BID fexofenadine (Thuy Allergy) 60 mg PO DAILY PRN indapamide 2.5 mg PO QAM Lactobacillus acidophilus (Probiotic Acidophilus) 500 mmu cells PO DAILY lancets test 2 times per day lancets As directed lisinopril 10 mg PO QAM metformin 1,000 mg PO BID multivitamin 1 tab PO QAM sitagliptin phosphate (Januvia) 50 mg PO QAM Tobacco use date assessed: 12/22/24 Dental Screening Dental Screen Date: 09/15/24 [facility] Medical History Lumbosacral radiculopathy at L5 Chest pain Spinal stenosis Myalgia Sleep apnea Seasonal allergies Hypercholesterolemia Essential hypertension Diverticulosis large intestine w/o perforation or abscess w/o bleeding 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 Maternal Aunt Cancer Paternal Uncle Diabetes Mother No problems noted. Father No problems noted. 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 How many drinks containing alcohol do you have on a typical day when you are drinking?: 1 or 2 3. How often do you have six or more drinks on one occasion?: Never Total Score: 0 EDE-7 AMB Questionnaire EDE-7 Date EDE - 7 assessed: 09/15/24 Source: Developed by Drs. Kelton Delaney, Marija Arnold, Deepak Harmon and colleagues, with an educational blaze from [employer]. Physical exam (Primary Care) Vital Signs: Last Vital Signs Temp 97.7 F 12/22/24 08:20 Pulse 80 12/22/24 08:20 BP 100/70 12/22/24 08:20 Pulse Ox 95 12/22/24 08:20 Oxygen Delivery Method Room Air 12/22/24 08:20 Care Plan Goal for BP management: Blood pressure is in range. BMI result Body Mass Index 36.9 BMI Assessment/Plan discussion: High (1 lb per week weight loss suggested.) BMI High, discussed plan: lifestyle, weight reduction and dietary Tobacco/Smoking Status: Tobacco use Status Tobacco use date assessed 12/22/24 12/22/24 08:30 Patient Tobacco Use Status Former Tobacco user 12/22/24 08:13 Tobacco use type Cigarette 12/22/24 08:13 e-Cigarette/Vaping Use Never Used 12/22/24 08:13 Thrive Assessment: Date of Thrive Assessment Date Thrive assessed 09/15/24 12/22/24 08:13 Currently or been in a relationship where the following occur: No concerns reported Results AMB Hemoglobin A1c AMB Hemoglobin A1c 8.7 % Last Edit by KOBI Vasquez on 12/22/24 08:36 Results Reviewed Results Reviewed: Laboratory Last Values Hgb A1c (Clinic) 8.7 % (4.0-6.0) H 12/22/24 08:12 Coding Level of Care Code Est Pt Level 4 (08593) Complex EM visit Add On G2211 Diagnoses Essential hypertension I10 Controlled diabetes mellitus type II without complication E11.9 Class 2 severe obesity with body mass index (BMI) of 35 to 39.9 with serious comorbidity E66.01 Spinal stenosis M48.00 Assessment & Plan Assessment & Plan (1) Essential hypertension: Code(s): I10 - Essential (primary) hypertension Category: Medical Plan: Blood pressure is in range. Continue current medications. (2) Controlled diabetes mellitus type II without complication: Comment: taking metformin & januvia-FBS usually 120-130 Code(s): E11.9 - Type 2 diabetes mellitus without complications Category: Medical Plan: A1c has shot up. Patient has not been taking Januvia for the past 2 months. I encouraged him to restart the medication. If he does not take metformin and Januvia, his blood sugars will remain high. Patient was encouraged to call the office if he is having difficulty getting Januvia from the pharmacy. (3) Class 2 severe obesity with body mass index (BMI) of 35 to 39.9 with serious comorbidity: Code(s): E66.01 - Morbid (severe) obesity due to excess calories Category: Medical Plan: Counseling on the importance of diet and exercise done. (4) Spinal stenosis: Code(s): M48.00 - Spinal stenosis, site unspecified Category: Medical Plan: On no pain medications. Patient was encouraged to do stretching exercises every day. Plan History of Present Illness The patient is a 54-year-old male presenting for a postoperative follow-up on back surgery and management of his diabetes mellitus, type 2. He reports good recovery and has returned to work, although he maintains caution with certain physical tasks to ensure ongoing healing. Regular stretching and exercising are recommended, although physical therapy has not been initiated. The patient also presents for diabetes management with his HbA1c currently at 8. He has not been taking Januvia for several months due to a pharmacy issue, which may account for recent glycemic control issues, with blood glucose levels post meals averaging at 140 mg/dL. No fasting measurements have been taken. Additionally, the patient had polyps removed during a previous colonoscopy and is due for another screening in three to five years. Social History - Employment: Employed, has returned to work post-surgery - Exercise: Engaged in stretching and exercises for post-surgical recovery - Functional Status: Monitors physical activity levels to avoid exacerbating back issue Review of Systems - Musculoskeletal: Reports post-surgical recovery for back and a pulled muscle behind knee - Endocrine: Reports increased HbA1c level at 8 - Gastrointestinal: Denies abdominal pain; notes prior polyp removal in colon - Vision: Reports good vision Physical Exam General: Cooperative and healthy appearing Nutritional Appearance: Well nourished Orientation/consciousness: Patient oriented x3 Limitations: No limitations Head: Normal to inspection General: Appearance normal, both eyes and all related structures Neck: Normal visual inspection Chest: Normal palpation of entire chest wall Respiratory: Normal respiratory effort Neurology: Patient oriented x3 Results - Labs: HbA1c reported at 8 - Tests: Colonoscopy previously performed, polyps removed Plan I recommend that the patient continue to engage in safe physical activity for ongoing recovery from back surgery, focusing on recommended exercises. For diabetes management, after recalibrating the patient's HbA1c, medication adjustments will be re-evaluated pending successful prescription management for Januvia. Should further issues arise, alternative glycated solutions will be discussed. Emphasis is placed on fasting glucose as the preferred monitoring method. The patient will be sent a notification for their next colonoscopy screening within a three to five-year period, adhering to prior polypectomy findings. Patient was informed and verbally consented to the use of an ambient scribe for clinic note documentation during this visit. Discussion Notes During the visit, I reviewed the management of the patient's postoperative back recovery, emphasizing the importance of moderate physical activity and rehabilitation exercises to maintain function. We discussed managing his Type 2 Diabetes Mellitus, noting the current absence of Januvia in his treatment regimen due to prescription and insurance issues; thus, it was agreed to resubmit the prescription. I reinforced the need for proper glycemic control and emphasized the benefit of fasting blood sugar monitoring. We further reviewed preventive health, addressing colonoscopy follow-up in three to five years based on past polyp removal, with an anticipated letter for scheduling. Patient Instructions - Continue with stretching and exercise regimen for back recovery. - Monitor fasting blood glucose levels at home for better diabetes management. - Report if Januvia prescription issues persist to explore alternative medications. - Expect a mail notification for scheduling a follow-up colonoscopy in three to five years. Orders: Orders AMB Hemoglobin A1c Today E11.9 - Type 2 diabetes mellitus without complications
[2024-12-22 08:20] VITALS: BP 100/70; PULSE 80; TEMP 36.5; O2SAT 95; BMI 36.9
== END 2024-12-22 09:09 | disposition home or self-care (01) ==
LOC: HO.HMCH 08:04
PROVIDERS: PCP Internal Medicine; Visit Provider Internal Medicine
DX: I10 Essential (primary) hypertension (principal); E11.9 Type 2 diabetes mellitus without complications; E66.01 Morbid (severe) obesity due to excess calories; Z68.36 Body mass index [BMI] 36.0-36.9, adult; M48.00 Spinal stenosis, site unspecified

== ENCOUNTER → 2024-12-22 08:03 | Outpatient (BNVA) | payer OTHER, SELFPAY | PROVIDERS: PCP Internal Medicine; Visit Provider Internal Medicine | DX: E11.9 Type 2 diabetes mellitus without complications (principal); I10 Essential (primary) hypertension; E66.01 Morbid (severe) obesity due to excess calories; Z68.36 Body mass index [BMI] 36.0-36.9, adult; M48.00 Spinal stenosis, site unspecified | CPT/HCPCS: 83036 ==

== ENCOUNTER 2025-04-15 07:23 | Outpatient (REF) | payer OTHER, SELFPAY ==
[2025-04-15 08:38] LABS: Hematocrit 41.8 % (42.0-52.0); Hemoglobin 14.3 g/dl (14.0-18.0); Mean Corpuscular HGB Conc 34.2 g/dl (31.0-36.0); Mean Corpuscular Hemoglobin 28.4 pg (27.0-33.0); Mean Corpuscular Volume 83.1 fL (80.0-98.0); NRBC Abs Auto 0.000 X10*3/uL (0.0-0.012); NRBC Pct Auto 0.0 /100WBC (0.0-0.2); Platelet Count 203 X10*3/uL (160-400); Red Blood Count 5.03 X10*6/uL (4.60-5.80); White Blood Count 6.2 X10*3/uL (4.8-10.8)
[2025-04-15 08:52] LABS: Appearance Urine Clear; Glucose Urine UA >=1000 mg/dL (Negative); PH 5.5 (5.0-9.0); Specific Gravity - Urine 1.025 (1.005-1.025); UMIC TRIGGER UA YES
[2025-04-15 09:19] LABS: Alanine Aminotransferase 87 U/L (0-40); Albumin Level 4.2 g/dL (3.5-5.0); Alkaline Phosphatase 61 U/L (39-117); Anion Gap 11 (12-20); Aspartate Amino Transferase 57 U/L (5-37); Blood Urea Nitrogen 9 mg/dL (9-16); Calcium 9.2 mg/dL (8.4-10.2); Carbon Dioxide 29 mmol/L (22-29); Chloride 103 mmol/L (96-108); Cholesterol 178 mg/dL (<200); Estimated Glomerular Filt Rate > 60; HDL Cholesterol 35 mg/dL (>40); Potassium 4.2 mmol/L (3.3-5.1); Sodium 139 mmol/L (135-145); Total Protein 7.5 g/dL (6.5-8.0); Triglycerides 225 mg/dL (<150)
[2025-04-15 09:23] LABS: Thyroid Stimulating Hormone 1.00 uIU/mL (0.32-4.0)
[2025-04-15 10:03] LABS: Hemoglobin A1C 345.1259 umol/L; Total Hemoglobin (HGBA1C) 3725.8949 umol/L
== END 2025-04-15 07:24 | disposition home or self-care (01) ==
LOC: HO.LAB 07:23
PROVIDERS: PCP Internal Medicine; Visit Provider Internal Medicine
DX: I10 Essential (primary) hypertension (principal); E11.9 Type 2 diabetes mellitus without complications
CPT/HCPCS: 36415; 80048; 80061; 80076; 81001; 83036; 84443; 85027

== ENCOUNTER 2025-05-03 09:54 | Outpatient (AMB) | payer OTHER, SELFPAY ==
--- NOTE | 2025-05-03 10:03 | MHC.PC.OV ---
Vital Signs 05/03/25 10:04 Height 5 ft 8 in Weight 238 lb 2 oz BMI 36.2 BP 132/84 Blood Pressure Location Lt brachial Position Sitting Respiration 16 Pulse 76 Pulse Source Pulse Oximeter Temp 97.1 F Temp Source Temporal Artery Scan Pulse Oximetry (%) 97 Oxygen Delivery Method Room Air Intake Visit Reasons: 3mth f/u - see comments Allergies seafood Allergy (Intermediate, Verified 05/03/25 13:22) Nausea and Vomiting Iodinated Contrast Media (IV CONTRAST) Adverse Reaction (Severe, Verified 05/03/25 13:22) Nausea and Vomiting Medication List - Last Reconciled 05/03/25 by Emilio Garcia MD allopurinol 100 mg PO QAM aspirin 81 mg PO QAM blood sugar diagnostic (FreeStyle Test strips) USE DIRECTED 2 TIMES A DAY docusate sodium (Colace) 100 mg PO BID dulaglutide (Trulicity) 1.5 mg (0.5 mL) subcut QWEEK empagliflozin (Jardiance) 25 mg PO DAILY fexofenadine (Thuy Allergy) 60 mg PO DAILY PRN indapamide 2.5 mg PO QAM Lactobacillus acidophilus (Probiotic Acidophilus) 500 mmu cells PO DAILY lancets test 2 times per day lancets As directed lisinopril 10 mg PO QAM metformin 1,000 mg PO BID multivitamin 1 tab PO QAM sitagliptin phosphate (Januvia) 25 mg PO DAILY Held on 05/03/25. Instructions: Doctor's Order Tobacco use date assessed: 05/03/25 Dental Screening Dental Screen Date: 05/03/25 Did you have a dental visit in the last 12 months?: Yes Did you have a dental problem in the last 6 months where you did not have access to dental care?: No Was dental information given to patient?: Patient has dentist HPI 3mth f/u - see comments HPI Details 54-year-old male presents to the office to discuss his chronic medical conditions. Since last office visit, patient's back pain has considerably improved. He is able to function and do all activities of daily living. Has returned to work with no restrictions. Patient reports that his blood sugars have been greater than 200 at all times. He is taking the metformin and Januvia as instructed. Not exercising or following any particular diet. Reports no symptoms of fatigue or tiredness. [facility] Medical History Lumbosacral radiculopathy at L5 Chest pain Spinal stenosis Myalgia Sleep apnea Seasonal allergies Hypercholesterolemia Essential hypertension Diverticulosis large intestine w/o perforation or abscess w/o bleeding 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 Maternal Aunt Cancer Paternal Uncle Diabetes Mother No problems noted. Father No problems noted. 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 1. Little interest or pleasure in doing things: not at all 2. Feeling down, depressed, or hopeless: not at all 3. Trouble falling or staying asleep, or sleeping too much: not at all 4. Feeling tired or having little energy: not at all 5. Poor appetite or overeating: not at all 6. Feeling bad about yourself - or that you are a failure or have let yourself or your family down: not at all 7. Trouble concentrating on things, such as reading the newspaper or watching television: not at all 8. Moving or speaking so slowly that other people could have noticed. Or the opposite - being so fidgety or restless that you have been moving around a lot more than usual: not at all 9. Thoughts that you would be better off or of hurting yourself in some way: not at all Total score: 0 Depression Screening Interpretation: Negative Depression Screening Done: Yes Source: Developed by Drs. Kelton Delaney, Marija Arnold, Deepak Harmon and colleagues, with an educational blaze from [employer]. Thrive Questionnaire Date Thrive assessed: 04/20/25 I am a: Patient What is your living situation today?: I have a steady place to live Within the past 12 months, did the food you bought not last and you didn't have the money to get more?: Never true Within the past 12 months, did you worry whether your food would run out before you got money to buy more?: Never true Do you have trouble paying for medicines?: No Do you have trouble getting transportation to medical appointments?: No Do you have trouble paying your heating and electricity bill?: No Do you have trouble taking care of your child, family member or friend?: No Do you have trouble with day-to-day activities such as bathing, preparing meals, shopping, managing finances, etc.?: No Are you currently unemployed and looking for a job?: No Are you interested in more education?: Yes Please select the resources that you would like help with: None Currently or been in a relationship where the following occur: No concerns reported THRIVE Score: 0 AUDIT C Alcohol Use Questionnaire (AUDIT-C) 1. How often do you have a drink containing alcohol?: Never 3. How often do you have six or more drinks on one occasion?: Never Total Score: 0 EDE-7 AMB Questionnaire EDE-7 Date EDE - 7 assessed: 09/15/24 Feeling nervous, anxious, or on edge: 0 = Not at all Not being able to stop or control worryin = Not at all Worrying too much about different things: 0 = Not at all Trouble relaxin = Not at all Being so restless that it is hard to sit still: 0 = Not at all Becoming easily annoyed or irritable: 0 = Not at all Feeling afraid as if something awful might happen: 0 = Not at all Total EDE-7 score (0-4 normal; 5-9 mild; 10-14 moderate; 15-21 severe): 0 Source: Developed by Drs. Kelton Delaney, Marija Arnold, Deepak Harmon and colleagues, with an educational blaze from [employer]. Physical exam (Primary Care) Vital Signs: Last Vital Signs Temp 97.1 F 05/03/25 10:04 Pulse 76 05/03/25 10:04 Resp 16 05/03/25 10:04 BP 132/84 05/03/25 10:04 Pulse Ox 97 05/03/25 10:04 Oxygen Delivery Method Room Air 05/03/25 10:04 Care Plan Goal for BP management: Blood pressure is in range. BMI result Body Mass Index 36.2 BMI Assessment/Plan discussion: High (1 lb per week weight loss suggested.) Tobacco/Smoking Status: Tobacco use Status Tobacco use date assessed 05/03/25 05/03/25 10:08 Patient Tobacco Use Status Former Tobacco user 05/03/25 10:04 Tobacco use type Cigarette 05/03/25 10:04 e-Cigarette/Vaping Use Never Used 05/03/25 10:04 PHQ-9: PHQ-9 Score PHQ-9: Total score 0 05/03/25 12:30 Depression Screening Interpretation: Negative Thrive Assessment: Date of Thrive Assessment Date Thrive assessed 04/20/25 05/03/25 10:04 Currently or been in a relationship where the following occur: No concerns reported Const General: cooperative and healthy appearing Nutritional Appearance: well nourished Orientation/consciousness: patient oriented x3 Limitations: no limitations HENMT Head: Yes normal to inspection Eyes General: appearance normal, both eyes and all related structures Neck Neck: Yes normal visual inspection Chest Chest palpation & inspection: normal palpation of entire chest wall Resp Effort & Inspection: normal respiratory effort Neuro General: patient oriented x3 Coding Level of Care Code Est Pt Level 4 (03374) Complex EM visit Add On G2211 Diagnoses Controlled diabetes mellitus type II without complication E11.9 Spinal stenosis M48.00 Assessment & Plan Assessment & Plan (1) Controlled diabetes mellitus type II without complication: Comment: taking metformin & januvia-FBS usually 120-130 Code(s): E11.9 - Type 2 diabetes mellitus without complications Category: Medical Plan: A1c is very high. Patient has been started on Trulicity once a week, Jardiance 25 mg once a day and metformin at the same dosage. I encouraged him to hold the Januvia for now. Patient was encouraged to be more compliant with his diet and exercise. I encouraged him to send his blood sugars in 2 weeks via the portal. (2) Spinal stenosis: Code(s): M48.00 - Spinal stenosis, site unspecified Category: Medical Plan: This condition is stable. Patient continues to be pain-free and is on no anti-inflammatory or muscle relaxants. Medications: New empagliflozin (Jardiance) 25 mg PO DAILY 90 tabs 1RF dulaglutide (Trulicity) 1.5 mg (0.5 mL) subcut QWEEK 2 mL 1RF On Hold sitagliptin phosphate (Januvia) Hold Comment: Doctor's Order 25 mg PO DAILY 90 tabs 1RF
[2025-05-03 10:04] VITALS: BP 132/84; PULSE 76; RESP 16; TEMP 36.2; O2SAT 97; BMI 36.2
== END 2025-05-03 10:36 | disposition home or self-care (01) ==
LOC: HO.HMCH 09:55
PROVIDERS: PCP Internal Medicine; Visit Provider Internal Medicine
DX: E11.9 Type 2 diabetes mellitus without complications (principal); M48.00 Spinal stenosis, site unspecified

== ENCOUNTER 2025-05-03 09:54 | Outpatient (REF) | payer OTHER, SELFPAY ==
[2025-05-03 11:57] LABS: Appearance Urine Clear; Glucose Urine UA 100 mg/dL (Negative); PH 5.5 (5.0-9.0); Specific Gravity - Urine 1.020 (1.005-1.025)
[2025-05-03 12:30] LABS: Alanine Aminotransferase 84 U/L (0-40); Albumin Level 4.5 g/dL (3.5-5.0); Alkaline Phosphatase 62 U/L (39-117); Anion Gap 12 (12-20); Aspartate Amino Transferase 53 U/L (5-37); Blood Urea Nitrogen 13 mg/dL (9-16); Calcium 9.6 mg/dL (8.4-10.2); Carbon Dioxide 28 mmol/L (22-29); Chloride 101 mmol/L (96-108); Estimated Glomerular Filt Rate > 60; Potassium 4.3 mmol/L (3.3-5.1); Sodium 137 mmol/L (135-145); Total Protein 7.6 g/dL (6.5-8.0)
[2025-05-07 21:53] LABS: CK-BB None Detected (None Detected); CK-MB 4 % (<5); CK-MM 92 % (95-100); Creatine Kinase Isoenzyme Itrp MACRO CK TYPE 1; Creatine Kinase,Total,Serum 396 U/L (23-325)
== END 2025-05-03 09:55 | disposition home or self-care (01) ==
LOC: HO.LAB 09:54
PROVIDERS: Absent Provider Student in an Organized Health Care Education/Training Program; PCP Internal Medicine; Visit Provider Internal Medicine
DX: R74.8 Abnormal levels of other serum enzymes (principal); I10 Essential (primary) hypertension; E11.9 Type 2 diabetes mellitus without complications
CPT/HCPCS: 36415; 80053; 81003; 82085; 82552

== ENCOUNTER 2025-05-24 07:39 | Outpatient (AMB) | payer OTHER, SELFPAY ==
--- NOTE | 2025-05-24 07:40 | A.OFFVIS_ITS ---
Vital Signs 05/24/25 07:48 Height 5 ft 8 in Weight 235 lb BMI 35.7 BP 142/100 H Blood Pressure Location Lt brachial Position Sitting Pulse 84 Pulse Source Pulse Oximeter Pulse Oximetry (%) 96 Oxygen Delivery Method Room Air Intake Visit Reasons: follow up Intake Note: Patient presents for Lumbosacral Radiculopathy and elevated CK follow up. 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 He continued to have persistent elevations in his CK as well as his aldolase. A GGT was checked and this was normal indicating that his liver enzyme elevations are coming from muscle. - L-spine MRI June 2024 showed disc herniation compressing L5 nerve roots. EMG confirmed L5 nerve root radiculopathy. - Weakness attributed to L5 nerve root compression - No rheum intervention warranted Since then, - Had Bilateral L3-4 Laminotomy, Partial facetectomy and foraminotomy; left L4-5 laminotomy 09/2024 Today - Not on any rheum medications - Overall doing better, weakness improved after surgery Rheumatologic History: Muscle weakness and elevated enzymes are being attributed to his L5 nerve root compression. Initial History Several months noticing pain, numbness and tingling, along with altered sensation involving his bilateral lower extremities. He denies overt muscle weakness involving his proximal muscles including his thighs or his shoulders but he does note that he can not do things that he normally does and has to now walk around with a cane. Denies statin use or red yeast rice supplement use. No new medications in the past year. Denies history of Raynaud's. No rashes. No family history of autoimmune disease. No history of exertional shortness of breath. Does not carry a diagnosis of ILD Current Rheumatology Medication(s): [facility] Medical History Lumbosacral radiculopathy at L5 Chest pain Spinal stenosis Myalgia Sleep apnea Seasonal allergies Hypercholesterolemia Essential hypertension Diverticulosis large intestine w/o perforation or abscess w/o bleeding 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 Maternal Aunt Cancer Paternal Uncle Diabetes Mother No problems noted. Father No problems noted. 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 Cognitive needs: Yes (cane) Hearing needs: No Vision needs: Yes (Glasses) Review of Systems Const Details: Review of Systems Constitutional: Denies fever, chills, weight loss ENT: Denies vision changes, eye pain or eye redness, dental caries, dry mouth GI: Denies nausea, vomiting, diarrhea, abdominal pain, change in BM Pulm: Denies SOB, POOL, hemoptysis, wheezing Cards: Denies chest pain, palpitations Skin: Denies Raynaud's, rash, nail changes, photosensitivity, 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 Well appearing and in no apparent painful distress MSK Hands * Right Hand: Able to make a fist. No swelling or tenderness to palpation of the MCPs, PIPs or DIPs. * Left Hand: Able to make a fist. No swelling or tenderness to palpation of the MCPs, PIPs or DIPs. * Herbedens and Bouchards nodes noted bilaterally Wrists * Right Wrist: Full ROM to flexion and extension. No swelling or TTP * Left Wrist: Full ROM to flexion and extension. No swelling or TTP Elbows * Right Elbow: Full ROM. No swelling or TTP. No TTP of the medial epicondyle. No TTP of the lateral epicondyle * Left Elbow: Full ROM. No swelling or TTP. No TTP of the medial epicondyle. No TTP of the lateral epicondyle Shoulders * Right shoulder: Full ROM. No swelling noted. No TTP of the AC joint. No TTP of the subacromial bursa. No TTP of the posterior shoulder * Left shoulder: Full ROM. No swelling noted. No TTP of the AC joint. No TTP of the subacromial bursa. No TTP of the posterior shoulder Knees * Right knee: Full ROM. No swelling noted. No TTP of the knee joint line. No TTP of pes anserine bursa * Left knee: Full ROM. No swelling noted. No TTP of the knee joint line. No TTP of pes anserine bursa. * Crepitations felt bilaterally Ankles * Right ankle: Good ankle dorsiflexion and plantar flexion. No swelling. No TTP of the ankle joint * Left ankle: Good ankle dorsiflexion and plantar flexion. No swelling. No TTP of the ankle joint Feet * Right foot: Negative squeeze test * Left foot: Negative squeeze test Tender points? * No tenderness to palpation of the bilateral trapezius, supraspinatus, anterior costochondral junctions, bilateral suboccipital muscle insertions Right Left Neck 5 Galley Hand strength 5 5 Wrist flexion 5 5 Wrist extension 5 5 Elbow extension 5 5 Elbow flexion 5 5 Shoulder abduction 5 5 Shoulder adduction 5 5 Hip flexion 5 5 Knee extension 5 5 Knee flexion 5 5 Ankle dorsiflexion 5 5 Ankle plantar flexion 5 5 Vital Signs: Last Vital Signs Pulse 84 05/24/25 07:48 BP 142/100 H 05/24/25 07:48 Pulse Ox 96 05/24/25 07:48 Oxygen Delivery Method Room Air 05/24/25 07:48 BMI result Body Mass Index 35.7 Results Reviewed Results Reviewed: Laboratory Tests 07/27/24 04/15/25 05/03/25 12:10 07:49 10:51 AST 57 H 53 H ALT 87 H 84 H Total Creatine Kinase 507 H 396 H Aldolase 11.2 H 8.6 H Laboratory Tests 07/27/24 12:10 WBC 6.7 RBC 4.91 Hgb 14.5 Hct 42.1 Plt Count 211 ESR 5 Sodium 136 Potassium 3.9 Chloride 100 Carbon Dioxide 27 BUN 12 Creatinine 1.04 AST 53 H ALT 100 H Alkaline Phosphatase 54 Total Creatine Kinase 507 H C-Reactive Protein < 0.04 Aldolase 11.2 H MARCIA Screen NEGATIVE MARCIN-1 Antibody <11 EJ Antibody <11 OJ Antibody <11 Mi-2-Alpha Ab <11 Mi-2-Beta Ab <11 NXP-2 Ab <11 PL-7 Antibody <11 PL-12 Antibody <11 SRP Ab <11 MDA5 Ab <11 Myos P155/140 TIF1-g Ab <11 Sm (Pearson) Antibody <1.0 NEG SM/SLIDER ASSEMBLER IgG Antibody <1.0 NEG HMGCR IgG Antibody <2 NT5C1A IgG Antibody <5 Laboratory Tests 08/22/24 08:33 GGT 43 MRI L Spine 06/29/24 IMPRESSION: Left subarticular and foraminal broad-based disc herniation at L4-5 compressing the left L5 nerve roots. Grade 1 anterolisthesis L3-4 on a degenerative basis resulting in central spinal canal and bilateral neuroforamina stenosis encroaching the neural elements. EMG 08/2024 FINDINGS: Left tibial nerve showed normal distal latency, normal but smaller amplitude compared to right and slow conduction velocity. All other nerves tested were within normal. Concentric needle EMG was performed in selected muscles of the bilateral lower extremity and lumbar paraspinals. Study revealed signs of electric abnormalities as shown in the table above. Right AH showed increased insertional activity, +2 PSWs and fibrillations. Right medial gastrocnemius and posterior tibialis showed increased insertional activity, PSWs and fibrillations. Left medial gastrocnemius showed increased insertional activity, PSWs and fibrillations, reduced recruitment and increased duration. Left AH showed increased insertional activity, PSWs and fibrillations. Left lower lumbar paraspinals showed increased insertional activity, PSWs and fibrillations. No myopathic looking units seen. IMPRESSION: 1. This is an abnormal study. 2. There is electrodiagnostic evidence for bilateral L5 subacute/chronic radiculopathy. Active denervation seen on left side. 3. There is no electrodiagnostic evidence for peroneal neuropathy, tibial neuropathy. lumbar radiculopathy, myopathy, or peripheral neuropathy. Assessment & Plan Assessment & Plan (1) Lumbosacral radiculopathy at L5: Code(s): M54.17 - Radiculopathy, lumbosacral region Category: Medical Plan: #Disc Herniation with L5 radiculopathy Patient with MRI confirming disc herniation and L5 nerve root compression With nerve root compression there is disruption in the normal continuous nerve stimulation that goes to muscles. This can cause muscle atrophy and concomitant weakness. He is planned to do spinal surgery next week. Patient does not have a myopathy at this time based on the EMG. Improved muscle enzymes. Plan - No further work up for myositis - Discharged from clinic (2) Elevated CK: Code(s): R74.8 - Abnormal levels of other serum enzymes Plan: #Elevated CK The differentials for an elevated CK are broad. The concern was this patient may have an underlying myositis. However his antibodies have been negative and his EMG does not show a myopathic process. His L5 radiculopathy is likely the cause of his weakness. In the normal muscle the nerves send ?nutrient? signals to muscles which helps to keep them alive and functioning. In the absence of these nutrient signals there can be muscle atrophy and cell . This muscle atrophy and cell can lead to a leakage of muscle enzymes which is what we are seeing in his blood work. I do not believe this is related to an underlying myositis. Plan I spent 20 minutes reviewing the record and labs, taking a history, examining the patient, discussing the treatment plan and documenting in the medical record Coding Level of Care Code Est Pt Level 3 (38834) Diagnoses Lumbosacral radiculopathy at L5 M54.17 Elevated CK R74.8
[2025-05-24 07:48] VITALS: BP 142/100; PULSE 84; O2SAT 96; BMI 35.7
== END 2025-05-24 08:01 | disposition home or self-care (01) ==
LOC: HO.RHES 07:40
PROVIDERS: PCP Internal Medicine; Visit Provider Student in an Organized Health Care Education/Training Program
DX: M54.17 Radiculopathy, lumbosacral region (principal); R74.8 Abnormal levels of other serum enzymes
CPT/HCPCS: 99213

== ENCOUNTER 2025-07-20 11:30 | Outpatient (AMB) | payer OTHER, SELFPAY ==
--- NOTE | 2025-07-20 11:33 | MHC.PC.OV ---
Vital Signs 07/20/25 11:35 Height 5 ft 8 in Weight 231 lb 8 oz BMI 35.2 BP 120/70 Blood Pressure Location Lt brachial Position Sitting Pulse 75 Pulse Source Pulse Oximeter Temp 97.3 F Temp Source Temporal Artery Scan Pulse Oximetry (%) 96 Oxygen Delivery Method Room Air Intake Visit Reasons: 3mth f/u - see comments Intake Note: Patient is here to follow up on DM, HTN, Hypercholesterolemia. Chair Inspector And Leveler Required: No Acid Tank Liner: Not Required per policy Accompanied by: Self / Same As Patient Allergies seafood Allergy (Intermediate, Verified 07/20/25 11:34) Nausea and Vomiting Iodinated Contrast Media (IV CONTRAST) Adverse Reaction (Severe, Verified 07/20/25 11:34) Nausea and Vomiting Tobacco use date assessed: 07/20/25 Dental Screening Dental Screen Date: 05/03/25 [facility] Medical History Lumbosacral radiculopathy at L5 Chest pain Spinal stenosis Myalgia Sleep apnea Seasonal allergies Hypercholesterolemia Essential hypertension Diverticulosis large intestine w/o perforation or abscess w/o bleeding 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 Maternal Aunt Cancer Paternal Uncle Diabetes Mother No problems noted. Father No problems noted. 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 Cognitive needs: Yes (cane) Hearing needs: No Vision needs: Yes (Glasses) Questionnaire Thrive Questionnaire Date Thrive assessed: 04/20/25 I am a: Patient What is your living situation today?: I have a steady place to live Within the past 12 months, did the food you bought not last and you didn't have the money to get more?: Never true Within the past 12 months, did you worry whether your food would run out before you got money to buy more?: Never true Do you have trouble paying for medicines?: No Do you have trouble getting transportation to medical appointments?: No Do you have trouble paying your heating and electricity bill?: No Do you have trouble taking care of your child, family member or friend?: No Do you have trouble with day-to-day activities such as bathing, preparing meals, shopping, managing finances, etc.?: No Are you currently unemployed and looking for a job?: No Are you interested in more education?: Yes Please select the resources that you would like help with: None Currently or been in a relationship where the following occur: No concerns reported THRIVE Score: 0 EDE-7 AMB Questionnaire EDE-7 Date EDE - 7 assessed: 09/15/24 Source: Developed by Drs. Kelton Delaney, Marija Arnold, Deepak Harmon and colleagues, with an educational blaze from [employer]. Physical exam (Primary Care) Vital Signs: Last Vital Signs Temp 97.3 F 07/20/25 11:35 Pulse 75 07/20/25 11:35 BP 120/70 07/20/25 11:35 Pulse Ox 96 07/20/25 11:35 Oxygen Delivery Method Room Air 07/20/25 11:35 BMI result Body Mass Index 35.2 Tobacco/Smoking Status: Tobacco use Status Tobacco use date assessed 07/20/25 07/20/25 11:40 Patient Tobacco Use Status Former Tobacco user 07/20/25 11:40 Tobacco use type Cigarette 07/20/25 11:40 e-Cigarette/Vaping Use Never Used 07/20/25 11:40 Thrive Assessment: Date of Thrive Assessment Date Thrive assessed 04/20/25 07/20/25 11:40 Currently or been in a relationship where the following occur: No concerns reported Results AMB Hemoglobin A1c AMB Hemoglobin A1c 6.4 % Last Edit by KOBI Vasquez on 07/20/25 11:51 Coding Assessment & Plan Assessment & Plan Orders: Orders AMB Hemoglobin A1c Today E11.9 - Type 2 diabetes mellitus without complications
[2025-07-20 11:35] VITALS: BP 120/70; PULSE 75; TEMP 36.3; O2SAT 96; BMI 35.2
== END 2025-07-20 12:00 | disposition home or self-care (01) ==
LOC: HO.HMCH 11:31
PROVIDERS: PCP Internal Medicine; Visit Provider Internal Medicine
DX: E11.9 Type 2 diabetes mellitus without complications (principal)

== ENCOUNTER → 2025-07-20 11:30 | Outpatient (BNVA) | payer OTHER, SELFPAY | PROVIDERS: PCP Internal Medicine; Visit Provider Internal Medicine | DX: E11.9 Type 2 diabetes mellitus without complications (principal) | CPT/HCPCS: 83036 ==